=== PATIENT | female | born 1950 | race Caucasian/White ===

== ENCOUNTER 2020-03-23 18:17 | Emergency (ER) | payer MEDICARE, SELFPAY ==
--- NOTE | ~2020-03-23 | XR_ITS ---
XR foot RT min 3V DATE: 03/23/2020 19:04 INDICATION: Right foot pain. No recent injury. Pain at lateral metatarsal region TECHNIQUE: 4 views COMPARISON: None FINDINGS: There is osteoarthritic change at the first tarsometatarsal, first metatarsophalangeal join t and multiple interphalangeal joints. There is minimal plantar calcaneal enthesopathy No fracture or dislocation, periosteal reaction or bone destruction. IMPRESSION: Polyarticular osteoarthritis Reviewed, dictated and finalized at location A.
[2020-03-23 18:20] VITALS: BP 148/68; PULSE 90; RESP 18; TEMP 37.3; O2SAT 99
--- NOTE | 2020-03-23 19:00 | ED.LOWEXIN ---
HPI - Extremity Injury (Lower) General Chief Complaint: Extremity Injury, Lower Stated Complaint: R foot pain Time Seen by Provider: 03/23/20 18:25 Source: patient Mode of arrival: ambulatory Limitations: no limitations History of Present Illness HPI Narrative: This is a 69-year-old female that presents emergency department for right foot pain today. Reports she was doing some work around the house. No known injury or trauma. Reports when she stood up she started to have right foot pain. Worse with weightbearing and relieved with rest. Reports she has had problems with a bone spur in this foot for which she used to see a roof panel hanger. She took a meloxicam with relief. Denies fever, erythema, or numbness. Related Data Allergies Allergy/AdvReac Type Severity Reaction Status Date / Time latex Allergy Mild hives, Verified 02/22/11 14:14 itch, swelling dermabond Allergy Mild swelling, Uncoded 06/16/10 08:59 itching Review of Systems Review of Systems: Narrative: CONSTITUTIONAL: Denies fever SKIN: Denies rash or itching. MUSCULOSKELETAL: Reports joint pain, and myalgia. NEUROLOGIC: Denies numbness All systems reviewed & are unremarkable except as noted in HPI and below PMFSH Past Medical History Medical History (Updated 03/23/20 @ 20:23 by Katie Urbina PA-C) History of breast cancer History of depression Surgical History Surgical History (Updated 03/23/20 @ 19:18 by Katie Urbina PA-C) History of cholecystectomy Exam Narrative: Exam Narrative: GENERAL: Well-appearing, well-nourished, and in no acute distress. HEAD: Normocephalic, atraumatic. EYES: EOMI. EXTREMITIES: Normal range of motion. No edema or erythema. Normal DP pulses. Normal sensation SKIN: Warm, dry, no rash. NEURO: No focal deficits. Alert and oriented x3. PSYCH: Normal mood and affect Course Vital Signs Vital signs: Vital Signs Temperature 99.1 F 03/23/20 18:20 Pulse Rate 90 03/23/20 18:20 Respiratory Rate 18 03/23/20 18:20 Blood Pressure 148/68 H 03/23/20 18:20 Pulse Oximetry 99 03/23/20 18:20 Temperature 99.1 F 03/23/20 18:20 Pulse Rate 90 03/23/20 18:20 Respiratory Rate 18 03/23/20 18:20 Blood Pressure 148/68 H 03/23/20 18:20 Pulse Oximetry 99 03/23/20 18:20 MDM - Extremity Injury (Lower) MDM Narrative Medical decision making narrative: Patient presents to the emergency department for right foot pain today. No known injury or trauma. Right foot x-ray shows osteoarthritis. Patient is afebrile and nontoxic-appearing. No erythema or edema of the foot. Patient is stable and felt appropriate for further outpatient evaluation. Reports she has a referral to a roof panel hanger. She was given warnings to return to the ER Imaging Data Radiologist's impression: ITS Impressions Foot X-Ray 03/23/20 19:20 IMPRESSION: Polyarticular osteoarthritis Critical Care Time Critical Care Time Critical Care Time: No Discharge Plan Discharge Clinical Impression: Acute pain of right foot Patient Disposition: Home, Self-Care Condition: Stable Instructions: Swollen Joint (ED) Additional Instructions: Return to the ER if you experience fever, redness and swelling of your foot, weakness, numbness, or any other symptoms that are concerning to you Rest, use ice/heat, take meloxicam once daily as needed for pain or Tylenol as needed for pain Follow up with podiatry Follow-up/Referrals: Thierry,Pasquale Alvarado MD [Primary Care Provider] -
[2020-03-23 20:39] VITALS: BP 138/82; PULSE 88; RESP 20; O2SAT 98
== END 2020-03-23 20:40 | disposition home or self-care (01) ==
PROVIDERS: Emergency Provider Emergency Medicine; PCP Internal Medicine
DX: M79.671 Pain in right foot (principal); M19.071 Primary osteoarthritis, right ankle and foot; Z85.3 Personal history of malignant neoplasm of breast
CPT/HCPCS: 73630; 99283

== ENCOUNTER 2022-04-13 16:49 | Emergency (ER) | payer MEDICARE, SELFPAY ==
[2022-04-13 16:50] VITALS: BP 132/42; PULSE 67; RESP 20; TEMP 36.5; O2SAT 100
--- NOTE | 2022-04-13 17:17 | ED.DENTAL ---
HPI - Dental/Oral General Chief complaint: Dental/Oral Stated complaint: dental pain Time Seen by Provider: 04/13/22 16:59 History of Present Illness HPI Narrative: 79-year-old female with a history of Sjogren's presented emergency room for evaluation of lower teeth pain. Patient states she recently had 4 teeth partially removed, but the oral surgeon left the roots of the teeth then. Patient has been on Augmentin and Aleve since the procedure. Patient is complaining of increased dental pain. Has a follow-up with her dentist in 2 days. Related Data Allergies Allergy/AdvReac Type Severity Reaction Status Date / Time latex Allergy Mild hives, Verified 04/13/22 16:53 itch, swelling dermabond Allergy Mild swelling, Uncoded 04/13/22 16:53 itching Review of Systems Review of Systems: CONSTITUTIONAL: Denies fever, chills, or sweats. EYES: Denies visual changes, redness, or discharge. ENT: Reports dental pain CARDIOVASCULAR: Denies chest pain, palpitations, or edema. RESPIRATORY: Denies cough or dyspnea. GASTROINTESTINAL: Denies abdominal pain, nausea, vomiting, or diarrhea. GENITOURINARY: Denies dysuria or hematuria. SKIN: Denies rash or itching. MUSCULOSKELETAL: Denies back pain, joint pain, or myalgia. NEUROLOGIC: Denies headache, numbness, dizziness, or weakness. PSYCHIATRIC: Denies anxiety or depression. [facility] Past Medical History Medical History History of breast cancer History of depression Surgical History Surgical History History of cholecystectomy Exam Narrative: GENERAL: Well-appearing, well-nourished, no physical limitations, and in no acute distress. HEAD: Normocephalic, atraumatic. EYES: Conjunctivae normal, PERRLA and EOMI. ENT: teeth: Erythematous gingiva to the lower gumline. Roots of the lower central incisors are visible CHEST: Clear to auscultation. No respiratory distress. No wheezes rales or rhonchi. HEART: Regular rate and rhythm. No murmur heard. Normal peripheral pulses. SKIN: Warm, dry, no rash. No noted wounds NEURO: No focal deficits. Alert and oriented x3. MAEW. CN's II-XI intact bilaterally, normal gait PSYCH: Cooperative. Normal mood and affect. Course Vital Signs Vital signs: Vital Signs Temperature 36.5 C 04/13/22 16:50 Pulse Rate 67 04/13/22 16:50 Respiratory Rate 04/13/22 16:50 Blood Pressure 132/42 L 04/13/22 16:50 Pulse Oximetry 100 04/13/22 16:50 Oxygen Delivery Room Air 04/13/22 16:50 Temperature 36.5 C 04/13/22 16:50 Pulse Rate 67 04/13/22 16:50 Respiratory Rate 04/13/22 16:50 Blood Pressure 132/42 L 04/13/22 16:50 Pulse Oximetry 100 04/13/22 16:50 Oxygen Delivery Room Air 04/13/22 16:50 Discharge Plan Discharge Clinical Impression: Toothache Patient Disposition: Home, Self-Care Condition: Stable Instructions: Antibiotic Form, Toothache (ED) Prescriptions: New hydrocodone-acetaminophen 5-325 mg tablet 1 tablet PO Q8H PRN (Reason: pain) Qty: 15 0RF Follow-up/Referrals: Thierry,Pasquale Alvarado MD [Primary Care Provider] - Stand Alone Forms: Work/School Release IP Time of Disposition: 17:15
== END 2022-04-13 17:33 | disposition home or self-care (01) ==
LOC: ANHED 17:26
PROVIDERS: Emergency Provider Nurse Practitioner Family; PCP Internal Medicine
DX: K08.89 Other specified disorders of teeth and supporting structures (principal); M35.00 Sjogren syndrome, unspecified; Z85.3 Personal history of malignant neoplasm of breast; Z98.818 Other dental procedure status
CPT/HCPCS: 99283

== ENCOUNTER 2023-02-04 15:46 | Outpatient (CLI) | payer MEDICARE, SELFPAY ==
--- NOTE | ~2023-02-04 | MM_ITS ---
EXAMINATION: MM screening albina LT w shadi HISTORY: Screening mammogram TECHNIQUE: Craniocaudal and mediolateral oblique 3-D tomosynthesis images were obtained and synthetic 2-D images were generated. CAD analysis was submitted and interpreted. COMPARISON: 08/14/2010 bilateral screening mammogram BREAST PARENCHYMAL COMPOSITION: There are scattered areas of fibroglandular density. FINDINGS: There is no evidence of suspicious mass, calcification, or architectural distortion to sugg est malignancy in either breast. There has been no suspicious interval change. IMPRESSION: 1. Status post right mastectomy in 2014 by clinical history. No mammographic evidence of malignancy. 2. Recommend routine screening mammography in one year. BI-RADS Category 1: Negative Reviewed, dictated and finalized at location A. IMPRESSION: 1. Status post right mastectomy in 2014 by clinical history. No mammographic ev idence of malignancy. 2. Recommend routine screening mammography in one year. BI-RADS Category 1: Negative
== END 2023-02-04 15:47 | disposition home or self-care (01) ==
PROVIDERS: PCP Internal Medicine
DX: Z12.31 Encounter for screening mammogram for malignant neoplasm of breast (principal)
CPT/HCPCS: 77063; 77067

== ENCOUNTER 2023-05-03 12:07 | Emergency (ER) | payer MEDICARE, SELFPAY ==
--- NOTE | ~2023-05-03 | XR_ITS ---
XR foot RT 2V 05/03/2023 12:29 Indication: Right foot pain Procedure: 2 views right foot Comparison: 03/23/2020 Findings: Osteopenia. There is polyarticular osteoarthritis. Lisfranc joint intact. Small degenerativ e calcaneal enthesophyte at the plantar surface. No acute fractures identified. There is anatomic ali gnment. Impression: 1: Mild-moderate polyarticular osteoarthritis. Reviewed, dictated and finalized at location B. Impression: 1: Mild-moderate polyarticular osteoarthritis.
[2023-05-03 12:14] VITALS: BP 143/56; PULSE 88; RESP 18; TEMP 36.1; O2SAT 99
--- NOTE | 2023-05-03 14:14 | PC.NURSE ---
Pt brought back to rm 18 to be evaluated by FOOD SAFETY SCIENTIST
[2023-05-03 14:16] VITALS: BP 145/64; PULSE 72; RESP 18; TEMP 36.3; O2SAT 100
--- NOTE | 2023-05-03 14:18 | ED.EXTPRO ---
HPI - Extremity Problem General Chief complaint: Extremity Problem,Nontraumatic <Andrea Martinez APRN - Last Filed: 05/03/23 14:32> Stated complaint: right foot bruising <Andrea Martinez APRN - Last Filed: 05/03/23 14:32> Time Seen by Provider: 05/03/23 14:17 <Andrea Martinez APRN - Last Filed: 05/03/23 14:32> Source: patient <Andrea Martinez APRN - Last Filed: 05/03/23 14:32> Mode of arrival: ambulatory <Andrea Martinez APRN - Last Filed: 05/03/23 14:32> Limitations: no limitations <Andrea Martinez APRN - Last Filed: 05/03/23 14:32> History of Present Illness HPI Narrative: Mrs. Pino is a 72 year old female patient presenting to the clinic today with c/o right dorsal lateral foot bruising. No known injury. Has a small scrap abrasion to the foot. History of Breast CA and sjorgens syndrome. Is taking hydroxychloroquine for this. No blood thinner or recent oral steriod use. Has been using topical steriod cream x1 week to arms for poison maliha that was Dx by her PCP. <Andrea Martinez APRN - Last Filed: 05/03/23 14:32> Related Data Allergies/Adverse reactions: Allergies Allergy/AdvReac Type Severity Reaction Status Date / Time latex Allergy Mild hives, Verified 04/13/22 16:53 itch, swelling dermabond Allergy Mild swelling, Uncoded 04/13/22 16:53 itching <Andrea Martinez APRN - Last Filed: 05/03/23 14:32> Review of Systems Review of Systems: All systems reviewed & are unremarkable except as noted in HPI and below <Andrea Martinez APRN - Last Filed: 05/03/23 14:32> PMFSH Past Medical History Medical History: Medical History History of breast cancer History of depression <Andrea Martinez APRN - Last Filed: 05/03/23 14:32> Surgical History Surgical History: Surgical History History of cholecystectomy <Andrea Martinez APRN - Last Filed: 05/03/23 14:32> Comments At the time of my signature, I reviewed and agree with the nursing past medical, surgical, social, and family history. There is no relevant family history pertinent to the patient complaint. <Andrea Martinez APRN - Last Filed: 05/03/23 14:32> Exam Const: General: healthy appearing, no acute distress and alert <Andrea Martinez APRN - Last Filed: 05/03/23 14:32> HENMT: Head: normal to inspection <Andrea Martinez APRN - Last Filed: 05/03/23 14:32> Chest: Chest palpation & inspection: normal inspection of the chest <Andrea Martinez APRN - Last Filed: 05/03/23 14:32> Other: Right breast mastectomy <Andrea Martinez APRN - Last Filed: 05/03/23 14:32> Resp: Effort & Inspection: normal respiratory effort <Andrea Martinez APRN - Last Filed: 05/03/23 14:32> Cardio: Rate: regular rate <Andrea Martinez APRN - Last Filed: 05/03/23 14:32> Rhythm: regular rhythm <Andrea Martinez APRN - Last Filed: 05/03/23 14:32> Extrem: Other: Bruising noted to the right dorsal/lateral foot, no swelling. Small area of scraped skin to the foot in middle of brusing, non-tender to palpation <Andrea Martinez APRN - Last Filed: 05/03/23 14:32> Course Course Emergency Course: Portions of this record may have been created with voice recognition software. <Andrea Martinez APRN - Last Filed: 05/03/23 14:32> Reevaluation(s) Reevaluation #1: 72-year-old female presented ED for evaluation of bruising to her right lateral foot. Patient denies any pain or injury. Patient was afebrile with no leukocytosis and a stable hemoglobin, normal platelet count, x-rays showed no acute fracture or dislocation. Patient had no tenderness to palpation. PT PTT are within normal limits. Suspect ruptured varicose vein. Patient was updated the results of her work-up. Encouraged of close follow-up with her
[2023-05-03 14:35] LABS: Basophils Absolute Auto 0.1 K/mm3 (0.0-0.1); Basophils Percent Auto 0.9 % (0.2-1.2); Eosinophils Absolute Auto 0.1 K/mm3 (0-0.3); Eosinophils Percent Auto 1.4 % (0-4.4); Hematocrit 39.8 % (37.0-47.0); Hemoglobin 12.7 g/dL (12.0-15.0); Immature Granulocyte Absolute 0.01 K/mm3 (0.00-0.031); Immature Granulocyte Percent A 0.2 % (0-0.5); Lymphocytes Absolute Auto 1.47 K/mm3 (0.9-3.2); Lymphocytes Percent Auto 23.1 % (18.3-44.2); Mean Corpuscular HGB Conc 31.9 g/dl (32-36); Mean Corpuscular Volume 93.9 fl (80-100); Mean Platelet Volume 9.5 fl (7.4-10.4); Monocytes Absolute Auto 0.5 K/mm3 (0.1-0.6); Monocytes Percent Auto 7.4 % (2.6-8.5); Neutrophils Absolute Auto 4.3 K/mm3 (1.3-6.7); Platelet Count Result 284 k/mm3 (150-375); Red Blood Count 4.24 M/mm3 (4.2-5.4); White Blood Count 6.4 K/mm3 (4.5-10.0)
[2023-05-03 14:49] LABS: Alanine Aminotransferase 11 U/L (6-35); Albumin Level 4.4 g/dL (3.5-5.1); Alkaline Phosphatase 79 U/L (38-126); Anion Gap 6 mmol/L (8-16); Aspartate Amino Transferase 36 U/L (14-36); Bilirubin,Total 0.5 mg/dL (0.2-1.3); Blood Urea Nitrogen 11 mg/dL (7-17); Calcium 9.4 mg/dL (8.4-10.2); Carbon Dioxide 27 mmol/L (22-30); Chloride 107 mmol/L (98-107); Estimated CRCL calculation 44 ml/min; Estimated Glomerular Filt Rate 55; Glucose 94 mg/dL (65-110); Potassium 4.2 mmol/L (3.4-5.0); Sodium 140 mmol/L (137-145)
[2023-05-03 16:31] LABS: Partial Thromboplastin Time 29.3 SECONDS (22.3-36.8); Prothrombin Time 13.8 Seconds (11.1-14.7)
== END 2023-05-03 16:48 | disposition home or self-care (01) ==
PROVIDERS: Nurse Practitioner Family; Emergency Provider Emergency Medicine; PCP Internal Medicine
DX: R58 Hemorrhage, not elsewhere classified (principal); Z85.3 Personal history of malignant neoplasm of breast
CPT/HCPCS: 36415; 73620; 80053; 85025; 85610; 85730; 99283

== ENCOUNTER 2023-09-03 13:50 | Outpatient (CLI) | payer MEDICARE, SELFPAY ==
--- NOTE | ~2023-09-03 | DEXA_ITS ---
Bone Density Report Name: CRISTIAN SALAZAR Age: 72 Sex: Female Ethnicity: White Date of : 1950 Indication: postmenopausal; screening for osteoporosis; height loss; prior fracture; cancer; seizure disorder; rheumatoid arthritis; Referring Provider: NBA*, ESTEPHANIA Alvarado Study: Bone densitometry was performed. Exam Date: September 03, 2023 Accession number: [id number] Bone Density: Region BMD T-score Z-score Classification AP Spine(L1-L4) 1.911 7.9 10.1 Normal Femoral Neck (Left) 0.693 -1.4 0.5 Osteopenia Total Hip (Left) 0.789 -1.3 0.4 Osteopenia Femoral Neck (Right) 0.672 -1.6 0.4 Osteopenia Total Hip (Right) 0.812 -1.1 0.6 Osteopenia Total Hip Mean 0.801 -1.2 0.5 Osteopenia World Health Organization criteria for BMD impression classify patients as: Normal (T-score at or above -1.0), Osteopenia (T-score between -1.0 and -2.5), or Osteoporosis (T-score at or below -2.5). 10-year Fracture Risk: FRAX not reported because: Prior hip or vertebral fracture Clinical Information Provided by Patient: Have had a previous hip or vertebral fracture Has had a low trauma fracture Has rheumatoid arthritis Has used the following medications: Vitamin D, Calcium Has the following medical conditions: Any Seizure Disorders, Cancer Patient maximum height was 66 Menopause Age: 32 No regular weight bearing exercise Does not regularly consume dairy products Drinks caffeinated beverages Onset of menses at age 14 Number of children 1 Impression: The patient has low bone mass, based on the Right Femoral Neck T-score. The patient has risk factors, including: previous fracture. Discussion: INCREASED RISK OF FRACTURE DUE TO HISTORY OF FRACTURE. The patient's previous fracture puts the patient at high risk of a future fracture. In untreated patients, the risk of osteoporotic fracture increases approximately two-fold for each 1.0 SD decrease in T-score. Low bone density is not the only risk factor for fracture; also consider factors such as patient's age, frailty or poor health, risk of falling, risk of injury, previous osteoporotic fracture, family history of osteoporosis, cigarette smoking, low body weight, etc. Not everyone with a low trauma fracture has osteoporosis; osteomalacia and other metabolic bone disorders should also be considered. Patients who have osteoporosis should be evaluated for specific diseases and conditions (secondary causes) that may cause or contribute to bone loss and fracture risk. National Osteoporosis Foundation (NOF) recommends pharmacologic intervention for patients with a prior hip or vertebral fracture regardless of BMD T-score. The patient should follow a healthful lifestyle (good nutrition with adequate calcium and vitamin D, and appropriate weight-bearing exercise). Follow-Up: Consider a repeat BMD and Vertebral Fracture Assessment (VFA) exam in 2 years or sooner if
== END 2023-09-03 13:51 | disposition home or self-care (01) ==
LOC: ANHIMG 13:54
PROVIDERS: PCP Internal Medicine; Visit Provider Internal Medicine
DX: M81.0 Age-related osteoporosis without current pathological fracture (principal); M85.852 Other specified disorders of bone density and structure, left thigh; M85.851 Other specified disorders of bone density and structure, right thigh
CPT/HCPCS: 77080

== ENCOUNTER 2024-02-17 08:17 | Outpatient (CLI) | payer MEDICARE, SELFPAY ==
--- NOTE | ~2024-02-17 | MM_ITS ---
EXAMINATION: MM screening albina LT w shadi HISTORY: Screening TECHNIQUE: Craniocaudal and mediolateral oblique 3-D tomosynthesis images were obtained and synthetic 2-D images were generated. CAD analysis was submitted and interpreted. COMPARISON: Comparison to multiple prior studies sequentially, with oldest reviewed study dated 01/2011. BREAST PARENCHYMAL COMPOSITION: Not dense: There are scattered areas of fibroglandular density. FINDINGS: There is no evidence of suspicious mass, calcification, or architectural distortion to sugg est malignancy in either breast. There has been no suspicious interval change. IMPRESSION: 1. No mammographic evidence of malignancy. 2. Recommend routine screening mammography in one year. BI-RADS Category 1: Negative Reviewed, dictated and finalized at location B.
== END 2024-02-17 08:18 | disposition home or self-care (01) ==
LOC: ANHIMG 08:19
PROVIDERS: PCP Internal Medicine
DX: Z12.31 Encounter for screening mammogram for malignant neoplasm of breast (principal)
CPT/HCPCS: 77063; 77067

== ENCOUNTER 2024-03-28 08:08 | Emergency (ER) | payer MEDICARE, SELFPAY ==
--- NOTE | 2024-03-28 08:17 | ED.SKABFB ---
HPI - Skin/Abscess/Foreign Bdy General Chief complaint: Skin/Abscess/Foreign Body Stated complaint: Rash Time Seen by Provider: 03/28/24 08:49 Source: patient and RN notes reviewed Mode of arrival: ambulatory Limitations: no limitations History of Present Illness HPI narrative: 73-year-old female presents concern for itchy rash on her neck, arms and legs. Reports she began getting the rash yesterday soon after she received an IV with contrast dye for a CT scan. She reports she has had several new areas of rash popped up as latest this morning. She denies any swollen lips, swollen tongue, trouble breathing. Reports she had a dry mouth while she was receiving the dye MD complaint: rash Related Data Home Medications Medication Instructions Recorded Confirmed aspirin 81 mg chewable tablet 81 mg PO DAILY 03/28/24 03/28/24 biotin 5,000 mcg chewable tablet 5,000 mcg PO DAILY 03/28/24 03/28/24 calcium citrate 250 mg PO DAILY 03/28/24 03/28/24 cetirizine 10 mg capsule (Zyrtec) 10 mg PO DAILY 03/28/24 03/28/24 escitalopram oxalate 20 mg tablet 20 mg PO DAILY 03/28/24 03/28/24 hydroxychloroquine 200 mg tablet 200 mg PO DAILY 03/28/24 03/28/24 montelukast 10 mg tablet 10 mg PO DAILY 03/28/24 03/28/24 omega 0-jbe-rer-fish oil 60 mg-90 1 cap PO BID 03/28/24 03/28/24 mg-500 mg capsule (Fish Oil) psyllium 1 packet PO DAILY 03/28/24 03/28/24 saw palmetto 500 mg capsule 1,200 mg PO DAILY 03/28/24 03/28/24 Allergies Allergy/AdvReac Type Severity Reaction Status Date / Time Iodinated Contrast Media Allergy Mild Rash Verified 03/28/24 08:59 latex Allergy Mild hives, Verified 03/28/24 08:43 itch, swelling dermabond Allergy Mild swelling, Uncoded 03/28/24 08:43 itching Review of Systems Review of Systems: CONSTITUTIONAL: Denies malaise, chills, sweats, or fever. EYES: Denies redness, or discharge. ENT: Denies rhinorrhea, congestion, swollen lips, swollen tongue CARDIOVASCULAR: Denies chest pain, palpitations, or edema. RESPIRATORY: Denies cough or dyspnea. GASTROINTESTINAL: Denies abdominal pain, nausea, vomiting SKIN: Reports itchy rash MUSCULOSKELETAL: Denies joint pain or myalgia. NEUROLOGIC: Denies headache. All systems reviewed & are unremarkable except as noted in HPI and below PMFSH Past Medical History Medical History History of breast cancer History of depression Surgical History Surgical History History of cholecystectomy Comments At time of signature, agree with nursing past medical, surgical, social and family history. There is no relevant family history pertinent to the presenting complaint Exam Narrative: GENERAL: Well-appearing, well-nourished, and in no acute distress. HEAD: Normocephalic, atraumatic. EYES: PERRLA, conjunctivae clear, and EOMI. ENT: Mucous membranes moist. Oropharynx without edema, erythema or lesions. NECK: Supple. No lymphadenopathy CHEST: Clear to auscultation. No respiratory distress. HEART: Regular rate and rhythm. SKIN: Warm, dry. Raised erythematous patches noted to the neck, scattered on bilateral arms and bilateral legs NEURO: Alert and oriented x3. PSYCH: Normal mood and affect Course Course Emergency Course: Patient is aware of diagnosis, understands and agrees to treatment plan. Anticipatory guidance given. Patient agrees to follow-up as directed and is aware of reasons to seek care at the emergency department. Portions of this record may have been created with voice recognition software Level of Care: Express Care Visit Vital Signs Vital signs: Reviewed. MDM - Skin/Abscess/Foreign Bdy MDM Narrative Medical decision making narrative: Does not appear at this time to be erythema multiforme, bullous, SJS, TEN; no evidence at this time to suggest RMSF, endocarditis or Lyme disease; patient looks well, nontoxic and is tolerating oral in
[2024-03-28 08:31] VITALS: BP 148/61; PULSE 80; RESP 16; TEMP 36.1; O2SAT 100
== END 2024-03-28 09:00 | disposition home or self-care (01) ==
PROVIDERS: Emergency Provider Nurse Practitioner; PCP Internal Medicine
DX: R21 Rash and other nonspecific skin eruption (principal); T50.8X5A Adverse effect of diagnostic agents, initial encounter; F32.A Depression, unspecified; Z85.3 Personal history of malignant neoplasm of breast; Z79.82 Long term (current) use of aspirin
CPT/HCPCS: 99213; G0463

== ENCOUNTER 2024-06-30 11:11 | Outpatient (CLI) | payer MEDICARE, SELFPAY ==
--- NOTE | ~2024-06-30 | US_ITS ---
EXAMINATION: US thyroid DATE: 06/30/2024 13:00 INDICATION: Nontoxic single thyroid nodule. TECHNIQUE: Multiple ultrasound images of the thyroid were obtained. COMPARISON: None. FINDINGS: The right thyroid lobe measures 3.9 x 1.2 x 1.6 cm. The left thyroid lobe measures 5.0 x 1.2 x 1.6 c m. In the left thyroid lobe, there is a 7 mm solid, hypoechoic, wider than tall nodule with smooth m argin without echogenic foci (TI-RADS TR4). IMPRESSION: 1. Left thyroid nodule, likely not clinically significant. No follow-up is needed. Reviewed, dictated and finalized at location A. 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 Left thyroid nodule, likely not clinically significant. No follow-up is need ed.
== END 2024-06-30 11:12 | disposition home or self-care (01) ==
PROVIDERS: PCP Internal Medicine; Visit Provider Internal Medicine
DX: E04.1 Nontoxic single thyroid nodule (principal)
CPT/HCPCS: 76536

== ENCOUNTER 2024-12-16 06:27 | Emergency (ER) | payer MEDICARE, SELFPAY ==
--- NOTE | ~2024-12-16 | XR_ITS ---
EXAMINATION: XR knee LT min 4V DATE: 12/16/2024 08:29 INDICATION: Left knee pain TECHNIQUE: Anteroposterior, sunrise, oblique and crosstable lateral views of the left knee were obtai jero COMPARISON: None. FINDINGS: Alignment is normal. No fracture. Chondrocalcinosis at the medial lateral compartment of the knee. T here is at least mild joint space narrowing in the medial compartment of the joint space narrowing ca n be underestimated on nonweightbearing imaging. Small marginal osteophytes in all 3 compartments. Sm all left knee joint effusion without layering lipohemarthrosis. Soft tissues are unremarkable. IMPRESSION: 1. 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 No acute osseous abno rmality. 2. Small left knee joint effusion. Reviewed, dictated and finalized at location A. IMPRESSION: 1. 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 No acute osseous abnormality. 2. Small left knee joint effusion.
[2024-12-16 06:25] VITALS: BP 163/72; PULSE 98; RESP 16; TEMP 36.8; O2SAT 98
--- NOTE | 2024-12-16 07:31 | ED_ITS ---
HPI - General Adult General Chief complaint: Extremity Injury, Lower Stated complaint: fall, knee pain Time Seen by Provider: 12/16/24 07:20 Source: patient and EMS Mode of arrival: EMS History of Present Illness HPI narrative: 73 YEARS OLD WHITE FEMALE CAME FROM HOME BY AMBULANCE BECAUSE OF A FALL. PATIENT MISSED 1 STEP, LANDED ON THE LEFT KNEE, DENIES OTHER INJURIES. Related Data Home Medications ?Medication ?Instructions ?Recorded ?Confirmed ?Last Taken ?Type aspirin 81 mg chewable tablet 81 mg PO DAILY 03/28/24 03/28/24 Unknown History biotin 5,000 mcg chewable tablet 5,000 mcg PO DAILY 03/28/24 03/28/24 Unknown History calcium citrate 250 mg PO DAILY 03/28/24 03/28/24 Unknown History cetirizine 10 mg capsule (Zyrtec) 10 mg PO DAILY 03/28/24 03/28/24 Unknown History escitalopram oxalate 20 mg tablet 20 mg PO DAILY 03/28/24 03/28/24 Unknown History hydroxychloroquine 200 mg tablet 200 mg PO DAILY 03/28/24 03/28/24 Unknown History montelukast 10 mg tablet 10 mg PO DAILY 03/28/24 03/28/24 Unknown History omega 1-zva-phd-fish oil 60 mg-90 1 cap PO BID 03/28/24 03/28/24 Unknown History mg-500 mg capsule (Fish Oil) psyllium 1 packet PO DAILY 03/28/24 03/28/24 Unknown History saw palmetto 500 mg capsule 1,200 mg PO DAILY 03/28/24 03/28/24 Unknown History Allergies Allergy/AdvReac Type Severity Reaction Status Date / Time Iodinated Contrast Media Allergy Mild Rash Verified 12/16/24 06:30 latex Allergy Mild hives, Verified 12/16/24 06:30 itch, swelling dermabond Allergy Mild swelling, Uncoded 12/16/24 06:30 itching Review of Systems Review of Systems: All systems reviewed & are unremarkable except as noted in HPI and below PMFSH Past Medical History Medical History History of depression History of breast cancer Surgical History Surgical History History of cholecystectomy Exam Narrative: GENERAL APPEARANCE: WELL-DEVELOPED, WELL-NOURISHED SKIN: NORMAL COLOR HEAD: NORMOCEPHALIC, NONTRAUMATIC EYES: CLEAR CONJUNCTIVA ENT: OROPHARYNX NORMAL, EARS NORMAL, NOSE NORMAL NECK: SUPPLE, NONTENDER CHEST AND RESPIRATORY: AIRWAY PATENT, NO RESPIRATORY DISTRESS, NO ACCESSORY MUSCLE USE HEART: REGULAR RATE/RHYTHM ABDOMEN: SOFT, NONTENDER, NO ORGANOMEGALY, QUIET BOWEL SOUNDS VASCULAR: NORMAL PERIPHERAL PULSES, NORMAL CAPILLARY REFILL. 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 IS NORMAL TESTED, NO GROSS MOTOR DEFICIT Course Vital Signs Vital signs: Vital Signs Temperature 36.8 C 12/16/24 06:25 Pulse Rate 98 12/16/24 06:25 Respiratory Rate 16 12/16/24 06:25 Blood Pressure 163/72 H 12/16/24 06:25 Pulse Oximetry 98 12/16/24 06:25 Oxygen Delivery Room Air 12/16/24 06:25 Temperature 36.8 C 12/16/24 06:25 Pulse Rate 98 12/16/24 06:25 Respiratory Rate 16 12/16/24 06:25 Blood Pressure 163/72 H 12/16/24 06:25 Pulse Oximetry 98 12/16/24 06:25 Oxygen Delivery Room Air 12/16/24 06:25 Medical Decision Making MDM Narrative Medical decision making narrative: DIFFERENTIAL DIAGNOSIS KNEE CONTUSION VERSUS FRACTURE VERSUS JOINT EFFUSION. X-RAY OF THE KNEE SHOWED NO ACUTE OSSEOUS ABNORMALITY, NO KNEE EFFUSION. Vital Signs Vital Signs: Vital Signs Temperature 36.8 C 12/16/24 06:25 Pulse Rate 98 12/16/24 06:25 Respiratory Rate 16 12/16/24 06:25 Blood Pressure 163/72 H 12/16/24 06:25 Pulse Oximetry 98 12/16/24 06:25 Oxygen Delivery Room Air 12/16/24 06:25 Temperature 36.8 C 12/16/24 06:25 Pulse Rate 98 12/16/24 06:25 Respiratory Rate 16 12/16/24 06:25 Blood Pressure 163/72 H 12/16/24 06:25 Pulse Oximetry 98 12/16/24 06:25 Oxygen Delivery Room Air 12/16/24 06:25 Imaging Data Radiologist's impression: Impressions Knee X-Ray 12/16/24 08:44 IMPRESSION: 1. 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 No acute osseous abnormality. 2. Small left knee joint effusion. Critical Care Time Critical Care Time Critical Care Time: No Discharge Plan Discharge Clinical Impression: Contusion of knee Patient Disposition: Home Condition: Stable Instructions: Knee Pain (ED) Additional Instructions: RETURN IF SYMPTOMS ARE WORSENING , CALL YOUR FAMILY PHYSICIAN FOR APPOINTMENT, TAKE TYLENOL NEEDED FOR ACHES AND PAIN, CONTINUE HOME MEDICATIONS. Patient Language: Polish Prescriptions: New diclofenac sodium 75 mg tablet,delayed release (DR/EC) 75 mg PO BID PRN (Reason: pain) Qty: 10 0RF No Action aspirin [Baby Aspirin] 81 mg Tablet,Chewable 81 mg PO DAILY hydroxychloroquine 200 mg Tablet 200 mg PO DAILY escitalopram oxalate 20 mg tablet 20 mg PO DAILY Zyrtec 10 mg Capsule 10 mg PO DAILY biotin 5,000 mcg Tablet,Chewable 5,000 mcg PO DAILY Metamucil Packet 1 packet PO DAILY Rx Instructions: mix into at least 8 oz of water or juice before administering montelukast 10 mg Tablet 10 mg PO DAILY saw palmetto 500 mg Capsule 1,200 mg PO DAILY calcium citrate 250 mg calcium Tablet 250 mg PO DAILY omega 0-hzy-avu-fish oil [Fish Oil] 60-90-500 mg Capsule 1 cap PO BID methylprednisolone [Medrol (Tommy)] 4 mg tablets,dose pack See Rx Instructions .ROUTE .COMPLEX Qty: 21 0RF Rx Instructions: orally per package directions Follow-up/Referrals: Thierry,Pasquale Alvarado MD [Primary Care Provider] -
--- OUTSIDE RECORDS SUMMARY | 2024-12-16 07:45 | XMS_ITS | Encounter Summary ---
Author Organization [facility] Address [address] [place] [address] Care Team Providers Care Inbound Ingredient Logistics Specialist Name Role Phone Pasquale Guadarrama MD Primary Care Provider [phone] Pasquale Guadarrama MD Unavailable [phone] Pasquale Guadarrama MD Unavailable [phone] Willard Tsang MD Unavailable Reason for Visit * Reason Onset Date Comments Record Request 12/15/2024 Encounter Details Date Type Department Care Team (Late st Contact Info) Description 12/15/2024 Telephone [facility] - Rheumatology 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 I advised that I was not aware of such an address, but that I would reach out to the office management and she could mail the forms to our office for faxing to [facility] for records if needed. Patient verbalized understanding and had no further questions or concerns at this time. documented in this encounter Plan of Treatment Upcoming Encounters Date Type Department Care Team (Late st Contact Info) Description 12/25/2024 9:20 AM CDT Office Visit [facility] - Rheumatology [address] [facility], [address] [place] [address] Libia Gardner MD [address] [place] [phone] documented as of this encounter Visit Diagnoses Not on filedocumented in this encounter Care Teams Inbound Ingredient Logistics Specialist Relationship Specialty Start Date End Date Pasquale Guadarrama MD [address] [place] [phone] PCP - General Internal Medicine 08/06/21 Pasquale Guadarrama MD [address] [place] [phone] 08/06/21 Pasquale Guadarrama MD [address] [place] [phone] Internal Medicine 09/03/10 Willard Tsang MD [facility] [phone] Neurology 02/22/24 documented as of this encounter
--- OUTSIDE RECORDS SUMMARY | 2024-12-16 07:45 | XMS_ITS | Data Portability ---
Author Organization [place] [employer], Main Office Address [address] [place] [address] Assessment No assessment recorded. Plan of Treatment Reminders Order Date Submit Date Provider Last Modified By Organization Details Last Modified Time Details Appointments None recorded. Lab T4, free, serum 025 [facility] - Outpatient Lab, [address] [place], [address], 5 05:37:14 TSH, serum or plasma 025 [facility] Outpatient Lab, [address] [place], [address], 5 05:37:15 vitamin D, 25-hydrox y, total, serum 025 [facility] Outpatient Lab, [address] [place], [address], 5 05:37:16 lipid panel, serum 025 [facility] Outpatient Lab, [address] [place], [address], 5 05:37:10 CMP, serum or plasma 025 [facility] Outpatient Lab, [address] [place], [address], 5 05:37:12 CBC w/ auto diff 025 [facility] Outpatient Lab, [address] [place], [address], 5 05:37:13 lipid panel, serum 024 [facility] Outpatient Lab, [address] [place], [address], 4 13:40:55 CMP, serum or plasma 024 [facility] Outpatient Lab, [address] [place], [address], 4 13:41:02 CBC w/ auto diff 024 [facility] Outpatient Lab, [address] [place], [address], 4 13:30:15 lipid panel, serum 024 [facility] Outpatient Lab, [address] [place], [address], 4 06:26:19 CMP, serum or plasma 024 [facility] Outpatient Lab, [address] [place], [address], 4 06:26:21 TSH, serum or plasma 024 [facility] Outpatient Lab, [address] [place], [address], 4 06:26:24 T4, free, serum 024 [facility] Outpatient Lab, [address] [place], [address], 4 06:26:23 CBC w/ auto diff 024 [facility] Outpatient Lab, [address] [place], [address], 4 06:26:22 Referral None recorded. Procedures None recorded. Surgeries None recorded. Imaging None recorded. Medication Orders None recorded. Patient TargetsNo targets recorded. Patient Instructions Encounter Date Encounter Id Patient Instructions Last Modified By Organization Details Last Modified Time 08/27/2023 [id number] dementia rating scale-2* [email or web address] Not available 08/27/2023 11:51:02 alcohol misuse* [email or web address] Not available 08/27/2023 11:51:03 depression screening* [email or web address] Not available 08/27/2023 11:51:03 Timed Up and Go test (TUG)* [email or web address] Not available 08/27/2023 11:51:03 multi-dimensiona l health assessment questionnaire* [email or web address] Not available 08/27/2023 11:51:03 Personalized Hea lt Plan and Screening Recommendations Advance Directives - Do you have one? Yes Advance Directives - Do we have your advance directive on file in your health record? No, please bring in a copy at your earliest convenience Primary Prevention/Interven tion (prevents or decreases the chance of common diseases from occurring) Smoking Risk: Non Smoker Alcohol Misuse Screening: Negative Weight: Appropriate Physical activity: Need more exercise/physical activity Nutrition: Good Average Fall Risk (screened today): Low Intermediate Refer to attached handout Preventing Falls: After your Visit Recommend regular use of cane or walker Vaccines Pneumococcal: Ordered Recommended today Recommended today, but you have declined Influenza: Ordered Recommended today Recommended today, but you have declined Chronic Disease Risks Stroke: Low Risk Intermediate Risk I have no recommendations Act breana diagnosis, Continue current treatment plan Heart Attack: Low risk Intermediate Risk I have no recommendations Act breana diagnosis, Continue current treatment plan Clogging of the Arteries: Low risk Intermediate Risk I have no recommendations Act breana diagnosis, Continue current treatment plan Diabetes: Low Risk I have no recommendations Secondary Prevention/Interven tion (detects treatable diseases before they may cause symptoms, disability, or ) Breast Cancer Screening with mammogram: Cervical/Uterine/Ov chris Cancer Screening: No screening necessary Osteoporosis Screening: Your next DEXA in: Ordered Recomme nded today Date Screening Last Performed: Colon Cancer Screening: Colonoscopy Fecal Occult Blood Cologuard (DNA stool test) Date Screening Last Performed: __ Eye Disease Screening: Dementia Risk: Low I have no recommendations Depression Screening: Negative Active diagnosis, Continue current treatment plan [email or web address] Not available 08/27/2023 11:30:34 Medicare wellnes s evaluation risk assessment stable. Follow-up for hyperlipidemia -Sjogren syndrome -depressive disorder -carcinoma the female breast. All clinically stable. Will check a CBC, CMP, thyroid and lipid panel. Continue on current Rx follow-up in six months. Standard immunizations of RSV, COVID, influenza and shingles as recommended. Portions of the record may have been created with voice recognition software. Occasional wrong-word or s ound-a-like substitutions may have occurred due to the inherent limitations of voice recognition software. Read the chart carefully and recognize, using context, where substitutions have occurred. Bone density scan [email or web address] Not available 08/27/2023 11:50:35 12/23/2023 [id number] Hyperlipidemia, anxiety, carcinoma of the breast call clinically stable. Has had recent blood work does not need anything further done at this juncture. Will continue on current Rx follow-up in four months Next Appointment: 4 Months Approximate Date: 04/21/2024 Portions of the record may have been created with voice recognition software. Occasional wrong-word or s ound-a-like substitutions may have occurred due to the inherent limitations of voice recognition software. Read the chart carefully and recognize, using context, where substitutions have occurred. [email or web address] Not available 12/23/2023 14:42:56 03/30/2024 [id number] Drug reaction to intravenous dye. Finish out the Medrol Dosepak. Noted in his chart that she is allergic to the dye for future reference. Already has a follow-up appointment on April as instructed to keep that. Keep Appointment: [facility] 04 27 2024 10:00 AM Eber Portions of the record may have been created with voice recognition software. Occasional wrong-word or s ound-a-like substitutions may have occurred due to the inherent limitations of voice recognition software. Read the chart carefully and recognize, using context, where substitutions have occurred. [email or web address] Not available 03/30/2024 15:41:36 04/27/2024 [id number] Carcinoma of the right breast, hyperlipidemia, osteoporosis. Plan is to continue on current Rx will obtain records from [facility] for further evaluation of the back pain and the PET and nuclear bone scan. Will continue on current Rx check blood work consisting of a lipid, CBC and CMP. Follow-up in four months Next Appointment: 4 Months Approximate Date: 08/25/2024 Portions of the record may have been created with voice recognition software. Occasional wrong-word or s ound-a-like substitutions may have occurred due to the inherent limitations of voice recognition software. Read the chart carefully and recognize, using context, where substitutions have occurred. [email or web address] Not available 04/27/2024 11:20:33 09/07/2024 [id number] Follow-up hyperlipidemia, osteoporosis, thyroid nodule, depressive disorder and Sjogren syndrome all clinically stable. Will continue on current medications follow-up in four months. Will check blood work including a CBC, CMP, lipid , Vit D, and thyroid. Follow Up: 4 Months Approximate Date: 01/05/2025 Portions of record are template driven. When necessary additional context will be provided. Additionally some portions have been created with voice recognition software. Occasional wrong-word or s ound-a-like substitutions may have occurred due to the inherent limitations of voice recognition software. Read the chart carefully and recognize, using context, where substitutions may have occurred. Created: Pasquale Guadarrama M.D. 09.07.2024 10:29 AM [email or web address] Not available 09/07/2024 11:29:44 Reason for Referral None Reported. Results Created Date Observation Date Name Description Value Unit Range Abnormal Flag Note LastModifiedBy Organization Detail LastModifiedTime 09/06/1909/07/2023 LIPID PANEL , [place] cholesterol, total 182 mg/dL <200 normal Not Available [facility] [address] [place], [address], 09/07/2023 06:26:19 09/06/1909/07/2023 LIPID PANEL , [place] HDL cholesterol 44 mg/dL > or = 50 low Not Available [facility] [address] [place], [address], 09/07/2023 06:26:19 09/06/1909/07/2023 LIPID PANEL , [place] triglyceride s 156 mg/dL <150 high Not Available [facility] [address] [place], [address], 09/07/2023 06:26:19 09/06/19 24 09/07/2023 LIPID PANEL , [place] LDL-choleste rol 111 mg/dL _(neives c) high Refer ence range : <100 Natalee able range <100 mg/dL for prima ry preve ntion ; <70 mg/dL for patie nts with CHD or diabe tic patie nts with > or = 2 CHD risk facto rs. LDL-C is now calcu lated using the Christy n-Hop kins calcu stephanie n, which is a valid ated novel metho d provi ding palmer r accur acy than the Fried oniel equat ion in the estim ation of LDL-C . Christy mendoza SS et al. EDMOND. 2013; 310(1 9): 2061- 2068 (http ://ed ucati on.[employer]. Devario/f aq/FA Q164) Not Available [address] [address] [place], [address], 09/07/2023 06:26:19 09/06/19 24 09/07/2023 LIPID PANEL , [place] chol/HDLC ratio 4.1 (calc ) <5.0 normal Not Available [address], [address], 09/07/2023 06:26:19 09/06/19 24 09/07/2023 LIPID PANEL , [place] non HDL cholesterol 138 mg/dL _(nieves c) <130 high For patie nts with diabe lui plus 1 major ASCVD risk facto r, treat ing to a non-H DL-C goal of <100 mg/dL (LDL- C of <70 mg/dL ) is consi trued a thera peutchelly c optio n. Not Available [address] [address] [place], [address], 09/07/2023 06:26:19 09/06/19 24 09/07/2023 COMPR EHENS BREANA METAB OLIC PANEL glucose 88 mg/dL 65-99 normal Fasti ng refer ence inter luis f Not Available [address], [address], 09/07/2023 06:26:21 09/06/19 24 09/07/2023 COMPR EHENS BREANA METAB OLIC PANEL urea nitrogen (BUN) 12 mg/dL 7-25 normal Not Available [address], [address], 09/07/2023 06:26:21 09/06/19 24 09/07/2023 COMPR EHENS BREANA METAB OLIC PANEL creatinine 0.99 mg/dL 0.60-1 .00 normal Not Available [facility] [address], [address], 09/07/2023 06:26:21 09/06/19 24 09/07/2023 COMPR EHENS BREANA METAB OLIC PANEL eGFR 61 mL/mi n/1.7 3m2 > or = 60 normal Not Available [address] [address] [place], [address], 09/07/2023 06:26:21 09/06/19 24 09/07/2023 COMPR EHENS BREANA METAB OLIC PANEL BUN/creatini ne ratio SEE NOTE: (calc ) 6-22 Not Repor bernice: BUN and Creat inine are withi n refer ence range . Not Available [address], [address], 09/07/2023 06:26:21 09/06/19 24 09/07/2023 COMPR EHENS BREANA METAB OLIC PANEL sodium 143 mmol/ L 135-14 6 normal Not Available [employer] [address], [address], 09/07/2023 06:26:21 09/06/19 24 09/07/2023 COMPR EHENS BREANA METAB OLIC PANEL potassium 4.1 mmol/ L 3.5-5. 3 normal Not Available [facility] [address], [address], 09/07/2023 06:26:21 09/06/19 24 09/07/2023 COMPR EHENS BREANA METAB OLIC PANEL chloride 105 mmol/ L 98-110 normal Not Available [address], [address], 09/07/2023 06:26:21 09/06/19 24 09/07/2023 COMPR EHENS BREANA METAB OLIC PANEL carbon dioxide 30 mmol/ L 20-32 normal Not Available [address], [address], 09/07/2023 06:26:21 09/06/19 24 09/07/2023 COMPR EHENS BREANA METAB OLIC PANEL calcium 10.3 mg/dL 8.6-10 .4 normal Not Available [address], [address], 09/07/2023 06:26:21 09/06/19 24 09/07/2023 COMPR EHENS BREANA METAB OLIC PANEL protein, total 6.9 g/dL 6.1-8. 1 normal Not Available [address], [address], 09/07/2023 06:26:21 09/06/19 24 09/07/2023 COMPR EHENS BREANA METAB OLIC PANEL albumin 4.3 g/dL 3.6-5. 1 normal Not Available [address], [address], 09/07/2023 06:26:21 09/06/19 24 09/07/2023 COMPR EHENS BREANA METAB OLIC PANEL globulin 2.6 g/dL_ (calc ) 1.9-3. 7 normal Not Available [address], [address], 09/07/2023 06:26:21 09/06/19 24 09/07/2023 COMPR EHENS BREANA METAB OLIC PANEL albumin/glob ulin ratio 1.7 (calc ) 1.0-2. 5 normal Not Available [address], [address], 09/07/2023 06:26:21 09/06/19 24 09/07/2023 COMPR EHENS BREANA METAB OLIC PANEL bilirubin, total 0.3 mg/dL 0.2-1. 2 normal Not Available [address], [address], 09/07/2023 06:26:21 09/06/19 24 09/07/2023 COMPR EHENS BREANA METAB OLIC PANEL alkaline phosphatase 82 U/L 37-153 normal Not Available [address], [address], 09/07/2023 06:26:21 09/06/19 24 09/07/2023 COMPR EHENS BREANA METAB OLIC PANEL AST 24 U/L 10-35 normal Not Available [address], [address], 09/07/2023 06:26:21 09/06/19 24 09/07/2023 COMPR EHENS BREANA METAB OLIC PANEL ALT 7 U/L 6-29 normal Not Available [address], [address], 09/07/2023 06:26:21 09/06/19 24 09/07/2023 CBC (INCL UDES DIFF/ PLT) white blood cell count 4.5 thous and/u L 3.8-10 .8 normal Not Available [address], [address], 09/07/2023 06:26:22 09/06/19 24 09/07/2023 CBC (INCL UDES DIFF/ PLT) red blood cell count 4.41 pedro on/uL 3.80-5 .10 normal Not Available [address] [place], [address], 09/07/2023 06:26:22 09/06/19 24 09/07/2023 CBC (INCL UDES DIFF/ PLT) hemoglobin 13.5 g/dL 11.7-1 5.5 normal Not Available [address], [address], 09/07/2023 06:26:22 09/06/19 24 09/07/2023 CBC (INCL UDES DIFF/ PLT) hematocrit 40.6 % 35.0-4 5.0 normal Not Available [address], [address], 09/07/2023 06:26:22 09/06/19 24 09/07/2023 CBC (INCL UDES DIFF/ PLT) MCV 92.1 fL 80.0-1 00.0 normal Not Available [address], [address], 09/07/2023 06:26:22 09/06/19 24 09/07/2023 CBC (INCL UDES DIFF/ PLT) MCH 30.6 pg 27.0-3 3.0 normal Not Available [address], [address], 09/07/2023 06:26:22 09/06/19 24 09/07/2023 CBC (INCL UDES DIFF/ PLT) MCHC 33.3 g/dL 32.0-3 6.0 normal Not Available [address], [address], 09/07/2023 06:26:22 09/06/19 24 09/07/2023 CBC (INCL UDES DIFF/ PLT) RDW 13.0 % 11.0-1 5.0 normal Not Available [address], [address], 09/07/2023 06:26:22 09/06/19 24 09/07/2023 CBC (INCL UDES DIFF/ PLT) platelet count 293 thous and/u L 140-40 0 normal Not Available [address], [address], 09/07/2023 06:26:22 09/06/19 24 09/07/2023 CBC (INCL UDES DIFF/ PLT) MPV 10.8 fL 7.5-12 .5 normal Not Available [address], [address], 09/07/2023 06:26:22 09/06/19 24 09/07/2023 CBC (INCL UDES DIFF/ PLT) absolute neutrophils 2358 cells /uL 1500-7 800 normal Not Available [address], [address], 09/07/2023 06:26:22 09/06/19 24 09/07/2023 CBC (INCL UDES DIFF/ PLT) absolute lymphocytes 1598 cells /uL 850-39 00 normal Not Available [address], [address], 09/07/2023 06:26:22 09/06/19 24 09/07/2023 CBC (INCL UDES DIFF/ PLT) absolute monocytes 387 cells /uL 200-95 0 normal Not Available [address], [address], 09/07/2023 06:26:22 09/06/19 24 09/07/2023 CBC (INCL UDES DIFF/ PLT) absolute eosinophils 99 cells /uL 15-500 normal Not Available [address], [address], 09/07/2023 06:26:22 09/06/19 24 09/07/2023 CBC (INCL UDES DIFF/ PLT) absolute basophils 59 cells /uL 0-200 normal Not Available [address], [address], 09/07/2023 06:26:22 09/06/19 24 09/07/2023 CBC (INCL UDES DIFF/ PLT) neutrophils 52.4 % normal Not Available [facility] [address], [address], 09/07/2023 06:26:22 09/06/19 24 09/07/2023 CBC (INCL UDES DIFF/ PLT) lymphocytes 35.5 % normal Not Available [facility] [address], [address], 09/07/2023 06:26:22 09/06/19 24 09/07/2023 CBC (INCL UDES DIFF/ PLT) monocytes 8.6 % normal Not Available [facility] [address], [address], 09/07/2023 06:26:22 09/06/19 24 09/07/2023 CBC (INCL UDES DIFF/ PLT) eosinophils 2.2 % normal Not Available [facility] [address], [address], 09/07/2023 06:26:22 09/06/19 24 09/07/2023 CBC (INCL UDES DIFF/ PLT) basophils 1.3 % normal Not Available [facility] [address], [address], 09/07/2023 06:26:22 09/06/19 24 09/07/2023 T4, FREE T4, free 0.9 NG/dL 0.8-1. 8 normal Not Available [facility] [address], [address], 09/07/2023 06:26:23 09/06/19 24 09/07/2023 TSH TSH 5.91 mIU/L 0.40-4 .50 high Not Available [facility] [address], [address], 09/07/2023 06:26:24 04/27/20 24 04/27/2024 CBC/C OMPLE TE BLD COUNT W/DIF F white blood cells 5.2 x10'3 /uL 4.2-10 .8 Not Available [facility] (Lab) [address] [place], [address], 04/27/2024 13:30:15 04/27/20 24 04/27/2024 CBC/C OMPLE TE BLD COUNT W/DIF F red blood cells 4.33 x10'6 /uL 3.80-5 .20 Not Available [facility] (Lab) [address] [place], [address], 04/27/2024 13:30:15 04/27/20 24 04/27/2024 CBC/C OMPLE TE BLD COUNT W/DIF F hemoglobin 13.2 g/dL 12.0-1 5.6 Not Available [facility] (Lab) [address] [place], [address], 04/27/2024 13:30:15 04/27/20 24 04/27/2024 CBC/C OMPLE TE BLD COUNT W/DIF F hematocrit 41.2 % 35.7-4 5.7 Not Available [facility] (Lab) [address] [place], [address], 04/27/2024 13:30:15 04/27/20 24 04/27/2024 CBC/C OMPLE TE BLD COUNT W/DIF F mean red cell volume 95.2 fL 82.0-9 9.0 Not Available [facility] (Lab) [address] [place], [address], 04/27/2024 13:30:15 04/27/20 24 04/27/2024 CBC/C OMPLE TE BLD COUNT W/DIF F mean red cell hemoglobin 30.5 pg 27.0-3 3.0 Not Available [facility] (Lab) [address] [place], [address], 04/27/2024 13:30:15 04/27/20 24 04/27/2024 CBC/C OMPLE TE BLD COUNT W/DIF F mean RBC HGB concentratio n 32.0 g/dL 31.0-3 6.0 Not Available [facility] (Lab) [address] [place], [address], 04/27/2024 13:30:15 04/27/20 24 04/27/2024 CBC/C OMPLE TE BLD COUNT W/DIF F red cell distribution width 13.1 % 11.8-1 5.5 Not Available [facility] (Lab) [address] [place], [address], 04/27/2024 13:30:15 04/27/20 24 04/27/2024 CBC/C OMPLE TE BLD COUNT W/DIF F platelets 285 x10'3 /uL 150-40 0 Not Available [facility] (Lab) [address] [place], [address], 04/27/2024 13:30:15 04/27/20 24 04/27/2024 CBC/C OMPLE TE BLD COUNT W/DIF F mean platelet volume 9.9 fL 9.0-12 .4 Not Available [facility] (Lab) [address] [place], [address], 04/27/2024 13:30:15 04/27/20 24 04/27/2024 CBC/C OMPLE TE BLD COUNT W/DIF F neutrophils 58.0 % 39.0-7 2.0 Not Available [facility] (Lab) [address] [place], [address], 04/27/2024 13:30:15 04/27/20 24 04/27/2024 CBC/C OMPLE TE BLD COUNT W/DIF F lymphocytes 27.3 % 16.0-4 7.0 Not Available [facility] (Lab) [address] [place], [address], 04/27/2024 13:30:15 04/27/20 24 04/27/2024 CBC/C OMPLE TE BLD COUNT W/DIF F monocytes 11.4 % 5.0-12 .0 Not Available [facility] (Lab) [address] [place], [address], 04/27/2024 13:30:15 04/27/20 24 04/27/2024 CBC/C OMPLE TE BLD COUNT W/DIF F eosinophils 1.9 % 1.0-7. 0 Not Available [facility] (Lab) [address] [place], [address], 04/27/2024 13:30:15 04/27/20 24 04/27/2024 CBC/C OMPLE TE BLD COUNT W/DIF F basophils 1.0 % 0.0-2. 0 Not Available [facility] (Lab) [address] [place], [address], 04/27/2024 13:30:15 04/27/20 24 04/27/2024 CBC/C OMPLE TE BLD COUNT W/DIF F immature granulocytes 0.4 % 0.00-0 .50 Not Available [facility] (Lab) [address] [place], [address], 04/27/2024 13:30:15 04/27/20 24 04/27/2024 CBC/C OMPLE TE BLD COUNT W/DIF F neutrophils, absolute count 2.99 x10'3 /uL 1.5-8. 0 Not Available [facility] (Lab) [address] [place], [address], 04/27/2024 13:30:15 04/27/20 24 04/27/2024 CBC/C OMPLE TE BLD COUNT W/DIF F lymphocytes, absolute count 1.41 x10'3 /uL 1.07-3 .43 Not Available [facility] (Lab) [address] [place], [address], 04/27/2024 13:30:15 04/27/20 24 04/27/2024 CBC/C OMPLE TE BLD COUNT W/DIF F monocytes, absolute count 0.59 x10'3 /uL 0.29-0 .99 Not Available [facility] (Lab) [address] [place], [address], 04/27/2024 13:30:15 04/27/20 24 04/27/2024 CBC/C OMPLE TE BLD COUNT W/DIF F eosinophils, absolute count 0.10 x10'3 /uL 0.02-0 .53 Not Available [facility] (Lab) [address] [place], [address], 04/27/2024 13:30:15 04/27/20 24 04/27/2024 CBC/C OMPLE TE BLD COUNT W/DIF F basophils, absolute count 0.05 x10'3 /uL 0.01-0 .08 Not Available [facility] (Lab) [address] [place], [address], 04/27/2024 13:30:15 04/27/20 24 04/27/2024 CBC/C OMPLE TE BLD COUNT W/DIF F immature granulocytes ,absolute 0.02 x10'3 /uL 0.00-0 .05 Not Available [facility] (Lab) [address] [place], [address], 04/27/2024 13:30:15 04/27/20 24 04/27/2024 CBC/C OMPLE TE BLD COUNT W/DIF F nucleated red blood cells 0.0 % -0 Not Available [facility] (Lab) [address] [place], [address], 04/27/2024 13:30:15 04/27/20 24 04/27/2024 CBC/C OMPLE TE BLD COUNT W/DIF F NRBC# 0.00 x10'3 /uL Not Available [facility] (Lab) [address] [place], [address], 04/27/2024 13:30:15 04/27/20 24 04/27/2024 LIPID PANEL cholesterol 224 mg/dL 140-19 9 high NIH SHAGGY NSUS RECOM MENDA TION FOR WARREN STERO L: ADULT CHILD LOW RISK: <200 <170 BORDE RLINE : <200- 239 ----- HIGH RISK: >240 >200 Not Available [facility] (Lab) [address] [place], [address], 04/27/2024 13:40:55 04/27/20 24 04/27/2024 LIPID PANEL triglyceride s 159 mg/dL 0-150 high NIH SHAGGY NSUS REPOR T RECOM MENDA TION FOR TRIGL YCERI CHANNING: ADULT CHILD LOW RISK: <150 ----- BODER LINE: 150-1 99 ----- HIGH RISK: >200 ----- Not Available [facility] (Lab) [address] [place], [address], 04/27/2024 13:40:55 04/27/20 24 04/27/2024 LIPID PANEL HDL cholesterol 52 mg/dL 40- Not Available [facility] (Lab) [address] [place], [address], 04/27/2024 13:40:55 04/27/20 24 04/27/2024 LIPID PANEL LDL cholesterol, calculated 140 mg/dL 0-130 high NIH SHAGGY NSUS REPOR T RECOM MENDA TIONS FOR LDL: ADULT CHILD LOW RISK <130 <110 (OPTI MAL LDL) <100 ----- BORDE RLINE : 130-1 59 ----- HIGH RISK: >160 >130 A TRIGL YCERI DE RESUL T >400 INVAL IDATE S THE CALCU LATIO N FOR LDL FRACT IONAT ION - THE LDL RESUL T WILL NOT BE REPOR BERNICE. Not Available [facility] (Lab) [address] [place], [address], 04/27/2024 13:40:55 04/27/2004/27/2024 COMPR EHENS BREANA METAB OLIC PANEL sodium 140 mmol/ L 137-14 5 Not Available [facility] (Lab) [address] [place], [address], 04/27/2024 13:41:01 04/27/20 24 04/27/2024 COMPR EHENS BREANA METAB OLIC PANEL potassium 4.2 mmol/ L 3.5-5. 1 Not Available [facility] (Lab) [address] [place], [address], 04/27/2024 13:41:01 04/27/20 24 04/27/2024 COMPR EHENS BREANA METAB OLIC PANEL chloride 108 mmol/ L 98-107 high Not Available [facility] (Lab) [address] [place], [address], 04/27/2024 13:41:01 04/27/20 24 04/27/2024 COMPR EHENS BREANA METAB OLIC PANEL carbon dioxide 26 mmol/ L 22-30 Not Available [facility] (Lab) [address] [place], [address], 04/27/2024 13:41:01 04/27/20 24 04/27/2024 COMPR EHENS BREANA METAB OLIC PANEL anion gap 10.2 mmol/ L 14-22 low Not Available [facility] (Lab) [address] [place], [address], 04/27/2024 13:41:01 04/27/20 24 04/27/2024 COMPR EHENS BREANA METAB OLIC PANEL glucose 92 mg/dL 70-99 Not Available [facility] (Lab) [address] [place], [address], 04/27/2024 13:41:04/27/20 24 04/27/2024 COMPR EHENS BREANA METAB OLIC PANEL BUN 19 mg/dL 8-19 Not Available [facility] (Lab) [address] [place], [address], 04/27/2024 13:41:01 04/27/20 24 04/27/2024 COMPR EHENS BREANA METAB OLIC PANEL creatinine 0.99 mg/dL 0.66-1 .25 Not Available [facility] (Lab) [address] [place], [address], 04/27/2024 13:41:01 04/27/20 24 04/27/2024 COMPR EHENS BREANA METAB OLIC PANEL GFR 55 Refer ence Range : Valatie ge GFR Healt hy Adult : >60 mL/mi n/1.7 3 m2 Chron ic Kidne y Disea se: 15-60 mL/mi n/1.7 3 m2 Kidne y Failu re: <15/m L/min /1.73 m2 www.n iddk. nih.g ov The MDRD study equat ion has not been valid ated in child cristal <18 years of age; pregn ant women ; the elder ly >85 years of age; or in some racia l or ethni c subgr oups, such as Amanda nics. Outsi de the valid ated andra eters , estim ated GFR is less accur ate, requi ring clini nieves judgm ent on a case- by-ca se basis . Clini nieves inter preta tion for other races and ages must be made by the clini ryan. The MDRD study equat ion has not been valid ated for the evalu ation of serum creat inine relat ed to nutri lester l statu s or medic ation usage . For perso ns <18 years of age, a pedia tric GFR calcu lator is avail able on the F websi te: https ://tessie troncoso.criselda tobin.o rg/pr ofess ional s/kdo qi/gf r_cal culat or Not Available [facility] (Lab) [address] [place], [address], 04/27/2024 13:41:01 04/27/20 24 04/27/2024 COMPR EHENS BREANA METAB OLIC PANEL alkaline phosphatase 89 U/L 38-126 Not Available [facility] (Lab) [address] [place], [address], 04/27/2024 13:41:01 04/27/20 24 04/27/2024 COMPR EHENS BREANA METAB OLIC PANEL alanine aminotransfe rase 11 U/L 0-35 Not Available [facility] (Lab) [address] [facility] [place], [address], 04/27/2024 13:41:01 04/27/20 24 04/27/2024 COMPR EHENS BREANA METAB OLIC PANEL aspartate aminotransfe rase 32 U/L 15-37 Not Available [facility] (Lab) [address] [place], [address], 04/27/2024 13:41:01 04/27/20 24 04/27/2024 COMPR EHENS BREANA METAB OLIC PANEL bilirubin, total 0.40 mg/dL 0.20-1 .30 Not Available [facility] (Lab) [address] [place], [address], 04/27/2024 13:41:01 04/27/20 24 04/27/2024 COMPR EHENS BREANA METAB OLIC PANEL calcium 9.6 mg/dL 8.4-10 .2 Not Available [facility] (Lab) [address] [place], [address], 04/27/2024 13:41:01 04/27/20 24 04/27/2024 COMPR EHENS BREANA METAB OLIC PANEL total protein 7.0 g/dL 6.3-8. 2 Not Available [facility] (Lab) [address] [place], [address], 04/27/2024 13:41:01 04/27/20 24 04/27/2024 COMPR EHENS BREANA METAB OLIC PANEL albumin 4.1 g/dL 3.0-4. 4 Not Available [facility] (Lab) [address] [place], [address], 04/27/2024 13:41:01 04/27/20 24 04/27/2024 COMPR EHENS BREANA METAB OLIC PANEL globulin 2.9 g/dL 2.6-4. 2 Not Available [facility] (Lab) [address] [place], [address], 04/27/2024 13:41:01 04/27/20 24 04/27/2024 COMPR EHENS BREANA METAB OLIC PANEL A/G ratio 1.4 ratio 1.0-2. 0 Not Available [facility] (Lab) [address] [place], [address], 04/27/2024 13:41:01 09/11/19 25 09/12/2024 LIPID PANEL , [place] cholesterol, total 197 mg/dL <200 normal Not Available [facility] [address], [address], 09/12/2024 05:37:09 09/11/1909/12/2024 LIPID PANEL , [place] HDL cholesterol 39 mg/dL > or = 50 low Not Available [facility] [address] [place], [address], 09/12/2024 05:37:09 09/11/1909/12/2024 LIPID PANEL , [place] triglyceride s 169 mg/dL <150 high Not Available [facility] [address], [address], 09/12/2024 05:37:09 09/11/19 25 09/12/2024 LIPID PANEL , [place] LDL-choleste rol 129 mg/dL _(nieves c) high Refer ence range : <100 Natalee able range <100 mg/dL for prima ry preve ntion ; <70 mg/dL for patie nts with CHD or diabe tic patie nts with > or = 2 CHD risk facto rs. LDL-C is now calcu lated using the Christy n-Hop kins calcu stephanie n, which is a valid ated novel metho d provi ding palmer r accur acy than the Fried oniel equat ion in the estim ation of LDL-C . Christy mendoza SS et al. EDMOND. 2013; 310(1 9): 2061- 2068 (http ://ed ucati on.Qu estRover Apps. com/f aq/FA Q164) Not Available [place] [address] [address] [place], [address], 09/12/2024 05:37:09 09/11/19 25 09/12/2024 LIPID PANEL , [place] chol/HDLC ratio 5.1 (calc ) <5.0 high Not Available [address], [address], 09/12/2024 05:37:09 09/11/19 25 09/12/2024 LIPID PANEL , [place] non HDL cholesterol 158 mg/dL _(nieves c) <130 high For patie nts with diabe lui plus 1 major ASCVD risk facto r, treat ing to a non-H DL-C goal of <100 mg/dL (LDL- C of <70 mg/dL ) is consi gabby a tom perry optio n. Not Available [address] [address] [place], [address], 09/12/2024 05:37:09 09/11/19 25 09/12/2024 COMPR EHENS BREANA METAB OLIC PANEL glucose 90 mg/dL 65-99 normal Fasti ng refer ence inter luis f Not Available [facility] [place] [address] [address] [place], [address], 09/12/2024 05:37:12 09/11/19 25 09/12/2024 COMPR EHENS BREANA METAB OLIC PANEL urea nitrogen (BUN) 12 mg/dL 7-25 normal Not Available [address], [address], 09/12/2024 05:37:12 09/11/19 25 09/12/2024 COMPR EHENS BREANA METAB OLIC PANEL creatinine 1.03 mg/dL 0.60-1 .00 high Not Available [address], [address], 09/12/2024 05:37:12 09/11/19 25 09/12/2024 COMPR EHENS BREANA METAB OLIC PANEL eGFR 57 mL/mi n/1.7 3m2 > or = 60 low Not Available [address], [address], 09/12/2024 05:37:12 09/11/19 25 09/12/2024 COMPR EHENS BREANA METAB OLIC PANEL BUN/creatini ne ratio 12 (calc ) 6-22 normal Not Available [address], [address], 09/12/2024 05:37:12 09/11/19 25 09/12/2024 COMPR EHENS BREANA METAB OLIC PANEL sodium 143 mmol/ L 135-14 6 normal Not Available [address], [address], 09/12/2024 05:37:12 09/11/19 25 09/12/2024 COMPR EHENS BREANA METAB OLIC PANEL potassium 4.6 mmol/ L 3.5-5. 3 normal Not Available [address], [address], 09/12/2024 05:37:12 09/11/19 25 09/12/2024 COMPR EHENS BREANA METAB OLIC PANEL chloride 108 mmol/ L 98-110 normal Not Available [address], [address], 09/12/2024 05:37:12 09/11/19 25 09/12/2024 COMPR EHENS BREANA METAB OLIC PANEL carbon dioxide 29 mmol/ L 20-32 normal Not Available [address], [address], 09/12/2024 05:37:12 09/11/19 25 09/12/2024 COMPR EHENS BREANA METAB OLIC PANEL calcium 9.9 mg/dL 8.6-10 .4 normal Not Available [address], [address], 09/12/2024 05:37:12 09/11/19 25 09/12/2024 COMPR EHENS BREANA METAB OLIC PANEL protein, total 6.7 g/dL 6.1-8. 1 normal Not Available [address], [address], 09/12/2024 05:37:12 09/11/19 25 09/12/2024 COMPR EHENS BREANA METAB OLIC PANEL albumin 4.4 g/dL 3.6-5. 1 normal Not Available [address], [address], 09/12/2024 05:37:12 09/11/19 25 09/12/2024 COMPR EHENS BREANA METAB OLIC PANEL globulin 2.3 g/dL_ (calc ) 1.9-3. 7 normal Not Available [address], [address], 09/12/2024 05:37:12 09/11/19 25 09/12/2024 COMPR EHENS BREANA METAB OLIC PANEL albumin/glob ulin ratio 1.9 (calc ) 1.0-2. 5 normal Not Available [address], [address], 09/12/2024 05:37:12 09/11/19 25 09/12/2024 COMPR EHENS BREANA METAB OLIC PANEL bilirubin, total 0.6 mg/dL 0.2-1. 2 normal Not Available [address], [address], 09/12/2024 05:37:12 09/11/19 25 09/12/2024 COMPR EHENS BREANA METAB OLIC PANEL alkaline phosphatase 83 U/L 37-153 normal Not Available [facility] [address], [address], 09/12/2024 05:37:12 09/11/19 25 09/12/2024 COMPR EHENS BREANA METAB OLIC PANEL AST 23 U/L 10-35 normal Not Available [address], [address], 09/12/2024 05:37:12 09/11/19 25 09/12/2024 COMPR EHENS BREANA METAB OLIC PANEL ALT 8 U/L 6-29 normal Not Available [address], [address], 09/12/2024 05:37:12 09/11/19 25 09/12/2024 CBC (INCL UDES DIFF/ PLT) white blood cell count 5.0 thous and/u L 3.8-10 .8 normal Not Available [address], [address], 09/12/2024 05:37:13 09/11/19 25 09/12/2024 CBC (INCL UDES DIFF/ PLT) red blood cell count 4.54 pedro on/uL 3.80-5 .10 normal Not Available [address], [address], 09/12/2024 05:37:13 09/11/19 25 09/12/2024 CBC (INCL UDES DIFF/ PLT) hemoglobin 13.3 g/dL 11.7-1 5.5 normal Not Available [facility] [address] [place], [address], 09/12/2024 05:37:13 09/11/1909/12/2024 CBC (INCL UDES DIFF/ PLT) hematocrit 42.2 % 35.0-4 5.0 normal Not Available [facility] [address], [address], 09/12/2024 05:37:13 09/11/1909/12/2024 CBC (INCL UDES DIFF/ PLT) MCV 93.0 fL 80.0-1 00.0 normal Not Available [facility] [address], [address], 09/12/2024 05:37:13 09/11/1909/12/2024 CBC (INCL UDES DIFF/ PLT) MCH 29.3 pg 27.0-3 3.0 normal Not Available [facility] [address], [address], 09/12/2024 05:37:13 09/11/1909/12/2024 CBC (INCL UDES DIFF/ PLT) MCHC 31.5 g/dL 32.0-3 6.0 low For adult s, a sligh t decre ase in the calcu lated MCHC value (in the range of 30 to 32 g/dL) is most likel y not clini ivon signi kenyon t; alisia er, it shoul d be inter prete d with cauti on in corre latio n with other red cell andra eters and the patie nt's clini nieves condi tion. Not Available [facility] [address], [address], 09/12/2024 05:37:13 09/11/1909/12/2024 CBC (INCL UDES DIFF/ PLT) RDW 12.0 % 11.0-1 5.0 normal Not Available [facility] [address], [address], 09/12/2024 05:37:13 09/11/19 25 09/12/2024 CBC (INCL UDES DIFF/ PLT) platelet count 269 thous and/u L 140-40 0 normal Not Available [address], [address], 09/12/2024 05:37:13 09/11/19 25 09/12/2024 CBC (INCL UDES DIFF/ PLT) MPV 10.4 fL 7.5-12 .5 normal Not Available [address], [address], 09/12/2024 05:37:13 09/11/19 25 09/12/2024 CBC (INCL UDES DIFF/ PLT) absolute neutrophils 2805 cells /uL 1500-7 800 normal Not Available [address], [address], 09/12/2024 05:37:13 09/11/19 25 09/12/2024 CBC (INCL UDES DIFF/ PLT) absolute lymphocytes 1655 cells /uL 850-39 00 normal Not Available [address], [address], 09/12/2024 05:37:13 09/11/19 25 09/12/2024 CBC (INCL UDES DIFF/ PLT) absolute monocytes 400 cells /uL 200-95 0 normal Not Available [address], [address], 09/12/2024 05:37:13 09/11/19 25 09/12/2024 CBC (INCL UDES DIFF/ PLT) absolute eosinophils 90 cells /uL 15-500 normal Not Available [address], [address], 09/12/2024 05:37:13 09/11/19 25 09/12/2024 CBC (INCL UDES DIFF/ PLT) absolute basophils 50 cells /uL 0-200 normal Not Available [address] [place], [address], 09/12/2024 05:37:13 09/11/19 25 09/12/2024 CBC (INCL UDES DIFF/ PLT) neutrophils 56.1 % normal Not Available [facility] [address], [address], 09/12/2024 05:37:13 09/11/1909/12/2024 CBC (INCL UDES DIFF/ PLT) lymphocytes 33.1 % normal Not Available [facility] [address], [address], 09/12/2024 05:37:13 09/11/19 25 09/12/2024 CBC (INCL UDES DIFF/ PLT) monocytes 8.0 % normal Not Available [facility] [address], [address], 09/12/2024 05:37:13 09/11/19 25 09/12/2024 CBC (INCL UDES DIFF/ PLT) eosinophils 1.8 % normal Not Available [facility] [address], [address], 09/12/2024 05:37:13 09/11/1909/12/2024 CBC (INCL UDES DIFF/ PLT) basophils 1.0 % normal Not Available [facility] [address], [address], 09/12/2024 05:37:13 09/11/1909/12/2024 T4, FREE T4, free 1.0 NG/dL 0.8-1. 8 normal Not Available [facility] [address], [address], 09/12/2024 05:37:14 09/11/19 25 09/12/2024 TSH TSH 5.29 mIU/L 0.40-4 .50 high Not Available [facility] [address], [address], 09/12/2024 05:37:15 09/11/19 25 09/12/2024 VITAM IN D,25- OH,TO ANGUS,I A vitamin D,25-oh,tota l,ia 65 NG/mL 30-100 normal Vitam in D Statu s 25-OH Vitam in D: Defic iency : <20 ng/mL Insuf ficie ncy: 20 - 29 ng/mL Optim al: > or = 30 ng/mL For 25-OH Vitam in D testi ng on patie nts on D2-mccall pplem entat ion and patie nts for whom quant itati on of D2 and D3 fract ions is requi red, the [facility] Ass[facility] eD(TM ) 25-OH VIT D, (D2,D 3), LC/MS /MS is recom elida d: order code 63339 (jamie ents >2yrs ). See Note 1 Note 1 For addit ional infor joyce lynn refer to http: //[facility] naomie Tinoco stDia gnost ics.c om/fa q/FAQ 199 (This link is being provi ded for infor ila wilson/ nj garcia purpo ses only. ) Not Available [address] [address] [address], [place], [address], 09/12/2024 05:37:16 09/07/19 24 09/03/2023 bone densi ty No observ ation record ed. [address], [place], [address], 09/07/2023 13:50:19 09/20/19 24 09/03/2023 bone densi ty No observ ation record ed. [address], [place], [address], 09/22/2023 13:54:46 09/20/19 24 09/07/2023 DEXA No observ ation record ed. [address], [place], [address], 09/22/2023 13:54:46 02/17/20 24 02/17/2024 MAMMO , scree fazal, digit al, bilat eral No observ ation record ed. [address], [place], [address], 02/17/2024 10:00:53 02/23/20 24 02/23/2024 elect romyo gram + nerve condu ction study No observ ation record ed. [place] [id number] [id number] [address] [facility], [place], [address], 02/24/2024 08:29:42 03/13/20 24 03/07/2024 MRI, brain + brain stem, w/wo contr ast No observ ation record ed. [address] [place], [address], 03/13/2024 14:21:52 06/30/20 24 06/30/2024 US, thyro id No observ ation record ed. [place] [id number] [facility] [address], [place], [address], 07/01/2024 09:13:51 Result Notes None recorded. Problems Name Problem SNOMED Code Status Onset Date Resolution Date Notes Provider Name and Address Organization Details Recorded Time Pain of right ankle joint 1411497050660 9106 Active 2019 Not Available [facility] 3 14:49:21 Congenital pes cavus 945104760 Active 2019 Not Available [facility] 3 14:49:21 Pure hyperchole sterolemia 080083328 Active 2018 Not Available [facility] 3 14:49:22 Depressive disorder 66046887 Active 2018 Not Available [facility] 3 14:49:22 Acute urinary tract infection 877424917 Active 2021 Not Available [facility] 3 14:49:22 Carcinoma of female breast 959209180 Active 2018 Not Available [facility] 3 14:49:22 Osteoporos is 33361728 Active 2018 Not Available [facility] 3 14:49:22 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 Not Available [facility] 3 14:49:22 Acute sinusitis 63638837 Active 2022 Pasquale Guadarrama MD [address], [address], [place], [address] , [place] [facility] 3 11:13:26 Pain in left foot 0121215764637 07 Active 2022 VIKRAM Lr, [place] [facility] 3 09:45:10 Contact dermatitis caused by urushiol from [facility] 338931714 Active 2022 Pasquale Guadarrama MD [address], [address], [place], [address] , [place] [facility] 3 10:54:50 Urinary incontinen ce 609713499 Active 2022 Pasquale Guadarrama MD [address], [address], [place], [address] , [facility] 3 15:30:52 Contusion of right foot 9332624423297 9103 Active 2022 Pasquale Guadarrama MD [address], [address], [place], [address] , [facility] 3 15:36:49 Pain of left knee joint 3128573347841 07 Active 2022 Leny zuniga, [place] [facility] 3 15:42:04 Anxiety 92861934 Active 2023 Pasquale Guadarrama MD [address], [address], [place], [address] , [facility] 4 16:48:10 Senile osteoporos is 58295759 Active 2023 Leny zuniga, [facility] 4 11:55:54 Eruption 476804209 Active 2023 Pasquale Guadarrama MD [address] [facility] [address], [place], [address] , [facility] 4 15:38:00 Generalize d rash 681178101 Active 2023 Luna Pryor CMA null, [facility] 4 12:19:17 Thyroid nodule 009041672 Active 2023 Luna Pryor CMA null, [facility] 4 15:08:55 Vitamin D deficiency 39606616 Active 2024 Pasquale Guadarrama MD [address] [facility] [address], [place], [address] , [facility] 5 11:29:30 Problem Notes None recorded. Procedures Surgical History Date Name Laterality Status Provider Name and Address Organization Details Recorded Time 08/27/19 24 Medicare Wellness CPT Code, subsequent completed Danica Wilkerson RN [facility] 08/27/2023 11:21:01 03/06/20 20 Date of Last Colonoscopy completed Not Available [facility] 10/07/2022 14:46:05 05/11/20 19 Most Recent Bone Density completed Not Available [facility] 10/07/2022 14:46:05 Imaging Results Imaging Date Name Status LastModified by Organization Details LastModified Time 09/03/2023 bone density completed [address], [place], [address], 09/07/2023 13:50:19 09/03/2023 bone density completed [address] [facility] [address], [place], [address], 09/22/2023 13:54:46 09/07/2023 DEXA completed [address] [address], [place], [address], 09/22/2023 13:54:46 02/17/2024 MAMMO, screening, digital, bilateral completed [place] [id number] [facility] [address], [place], [address], 02/17/2024 10:00:53 02/23/2024 electromyogram + nerve conduction study completed [place] [id number] [id number] [address] [facility], [place], [address], 02/24/2024 08:29:42 03/07/2024 MRI, brain + brain stem, w/wo contrast completed [address] [place], [address], 03/13/2024 14:21:52 06/30/2024 US, thyroid completed [place] [id number] [facility] [address], [place], [address], 07/01/2024 09:13:51 Procedure Notes None recorded. Medical Equipment None Reported. Allergies Allergen ID Allergen Name Allergen Category Reaction Reaction Severity Criticality Documentation Date Start Date Code Code System Note Provider Name and Address Organization Details Recorded Time 60222 latex environme nt,medica tion rash Not available Not available 10/07/2022 46336 91 RxNorm Not Available [facility] 3 14:52:34 83897 chloroxyl enol medicatio n Not available Not available Not available 10/07/2022 95482 RxNorm Not Available [facility] 3 14:52:34 [address] Iodinated contrast media (substanc e) medicatio n rash Not available low 03/30/2024 61743 2003 SNOMED Pasquale Guadarrama MD [address] [facility], [place], [address] , [facility] - [facility] [employer] 4 15:45:36 Medications Name Sig Start Date Stop Date Status Note LastModified by Organization Details LastModified Time amoxicillin 500 mg capsule Take 1 capsule every 8 hours by oral route. 05/08 completed Not Available Not Available Not Available benzonatate 200 mg capsule Take 1 capsule 3 times a day by oral route. active Not Available Not Available No t Available valacyclovi r 1 gram tablet TAKE 1 TABLET BY MOUTH THREE TIMES DAILY FOR 10 DAYS 12/22 completed Not Available Not Available Not Available hydrocodone 5 mg-acetamin ophen 325 mg tablet TAKE 1 TABLET BY MOUTH EVERY 8 HOURS NEEDED 12/22 completed Not Available Not Available Not Available spironolact one 100 mg tablet Take 1 tablet every day by oral route. 12/22 completed Not Available Not Available Not Available diphenoxyla te-atropine 2.5 mg-0.025 mg tablet Take 2 tablets every day by oral route as needed. 2024 active Not Available Not Available Not Avai lable Zyrtec 10 mg tablet Take 1 tablet every day by oral route. 2021 active Not Available Not Available Not Avai lable triamcinolo ne acetonide 0.1 % topical cream APPLY A THIN LAYER TO THE AFFECTED AREA(S) BY TOPICAL ROUTE 2 TIMES PER DAY active Not Available Not Available No t Available amoxicillin 500 mg tablet TAKE 4 TABLETS BY MOUTH 1 HOUR BEFORE SURGERY 05/25 completed Not Available Not Available Not Available clobetasol 0.05 % topical gel APPLY A THIN LAYER TO THE AFFECTED AREA(S) BY TOPICAL ROUTE 2 TIMES PER DAY 11/03 completed Not Available Not Available Not Available Mobic 15 mg tablet Take 1 tablet(s) every day by oral route. 08/27 completed Not Available Not Available Not Available alendronate 35 mg tablet TAKE 1 TABLET BY MOUTH WEEKLY WITH 8 OZ OF PLAIN WATER 30 MINUTES BEFORE FIRST FOOD, DRINK OR MEDS. STAY UPRIGHT FOR 30 MINS 05/08 completed Not Available Not Available Not Available Fosamax 70 mg tablet Take 1 tablet every week by oral route. active Not Available Not Available No t Available biotin 10,000 mcg capsule Take 1 capsule twice a day by oral route. 08/29 completed Not Available Not Available Not Available neomycin-po lymyxin-dex ameth 3.5 mg/mL-10,00 0 unit/mL-0.1 % eye drops INSTILL 1 DROP INTO RIGHT EYE THREE TIMES DAILY FOR 7 DAYS 12/22 completed Not Available Not Available Not Available magnesium 500 mg (as magnesium oxide) tablet Take 1 tablet every day by oral route. active Not Available Not Available No t Available montelukast 10 mg tablet TAKE 1 TABLET DAILY active Not Available Not Available No t Available lorazepam 1 mg tablet TAKE 1 TABLET BY MOUTH THREE TIMES DAILY NEEDED 12/22 completed Not Available Not Available Not Available hydroxychlo roquine 200 mg tablet Take 1 tablet twice a day by oral route. active Not Available Not Available No t Available methylpredn isolone 4 mg tablets in a dose pack FOLLOW PACKAGE DIRECTION S 04/27 completed Not Available Not Available Not Available cefdinir 300 mg capsule TAKE 1 CAPSULE BY MOUTH EVERY 12 HOURS 05/25 completed Not Available Not Available Not Available neomycin 3.5 mg/g-polymy latrice B 10,000 unit/g-dexa meth 0.1 % eye oint APPLY THIN LAYER IN LEFT EYE TWICE DAILY 12/22 completed Not Available Not Available Not Available escitalopra m 20 mg tablet TAKE 1 TABLET DAILY active Not Available Not Available No t Available chlorhexidi ne gluconate 0.12 % mouthwash SWISH AND SPIT 10-15 CC TWICE DAILY FOR ONE WEEK BEFORE AND AFTER SURGERY 12/22 completed Not Available Not Available Not Available saw palmetto 1200 mg od 2021 active Not Available Not Available Not Avai lable Os-Nieves 500 + D3 one twice a day 11/03 completed Not Available Not Available Not Available cetirizine 10 mg capsule Take by oral route. 11/03 completed Not Available Not Available Not Available Os-Nieves 500 + D3 500 mg-15 mcg (600 unit) tablet Take 1 tablet every day by oral route. 2021 active Not Available Not Available Not Avai lable Flonase Allergy Relief 50 mcg/actuati on nasal spray,suspe nsion [place] 2 sprays every day by intranasa l route. 08/29 completed Not Available Not Available Not Available Fish Oil 1,000 mg (120 mg-180 mg) capsule Take 1 capsule every day by oral route. active Not Available Not Available No t Available Metamucil 0.4 gram capsule Take 1 capsule every day by oral route. 2018 active Not Available Not Available Not Avai lable Fluad 65yr up(PF)45 mcg(15 mcgx3)/0.5 mL intramuscul ar syringe active Not Available Not Available N ot Available Vitals Date Recorded Body height Body mass index (BMI) Body weight Heart rate Body temperature Oxygen saturation Oxygen saturation in Arterial blood by Pulse oximetry Systolic blood pressure Diastolic blood pressure Provider Name and Address Organization Details Last Updated DateTime 4 162.56 cm 22.8 kg/m2 06796.7 9 g 82 /min 97 [degF] 96 % 96 % 138 mm[Hg] 74 mm[Hg] [facility] 4 11:15:22 Date Recorded Pain severity - 0-10 verbal numeric rating [Score] - Reported Provider Name and Address Organization Details Last Updated DateTime 08/27/2023 0 Danica Wilkerson RN [facility] [employer] [facility] 08/27/2023 11:21:26 Date Recorded Body height Body mass index (BMI) Body weight Heart rate Body temperature Oxygen saturation Oxygen saturation in Arterial blood by Pulse oximetry Systolic blood pressure Diastolic blood pressure Provider Name and Address Organization Details Last Updated DateTime 4 162.56 cm 22.6 kg/m2 28750.4 g 87 /min 97 [degF] 95 % 95 % 120 mm[Hg] 60 mm[Hg] [facility] [facility] 4 14:34:04 Date Recorded Body height Body mass index (BMI) Body weight Heart rate Body temperature Oxygen saturation Oxygen saturation in Arterial blood by Pulse oximetry Systolic blood pressure Diastolic blood pressure Provider Name and Address Organization Details Last Updated DateTime 4 162.56 cm 21.8 kg/m2 87499.2 3 g 77 /min 97.8 [degF] 98 % 98 % 162 mm[Hg] 88 mm[Hg] SHANNO Razo [facility] [employer] [facility] 4 15:35:31 Date Recorded Body height Body mass index (BMI) Body weight Heart rate Body temperature Oxygen saturation Oxygen saturation in Arterial blood by Pulse oximetry Systolic blood pressure Diastolic blood pressure Provider Name and Address Organization Details Last Updated DateTime 4 162.56 cm 22 kg/m2 23117.8 2 g 88 /min 97 [degF] 98 % 98 % 122 mm[Hg] 60 mm[Hg] Alissa Nick AHBoy CT [employer] [facility] 4 11:04:37 Date Recorded Body height Body mass index (BMI) Body weight Heart rate Oxygen saturation Oxygen saturation in Arterial blood by Pulse oximetry Systolic blood pressure Diastolic blood pressure Provider Name and Address Organization Details Last Updated DateTime 5 162.56 cm 22.8 kg/m2 56531.7 9 g 79 /min 98 % 98 % 120 mm[Hg] 78 mm[Hg] Alissa Nick Boy [place] [employer] [facility] 5 11:12:38 Social History Question Answer Notes LastModified by Organizat ion Details LastModified Time Tobacco Smoking Status Never Smoker Not Available [facility] 10/07/2022 14:45:49 Do You Have An Advance Directive? Yes [email or web address] Information not available 08/27/2023 What Is Your Level Of Alcohol Consumption? Occasional MIGRATION.[id number] Information not available 10/07/2022 Are You Blind Or Do You Have Difficulty Seeing? No MIGRATION.220493 5722 Information not available 10/07/2022 Are You Deaf Or Do You Have Serious Difficulty Hearing? No MIGRATION.467128 8256 Information not available 10/07/2022 What Type Of Diet Are You Following? REGULAR MIGRATION.423689 1353 Information not available 10/07/2022 Have There Been Any Changes To Your Family Or Social Situation? Yes [email or web address] Information not available 08/27/2023 What Is The Fluoride Status Of Your Home? Unknown MIGRATION.794590 9142 Information not available 10/07/2022 Are There Any Guns Present In Your Home? No MIGRATION.[id number] 3201 Information not available 10/07/2022 Do You Use Insect Repellent Routinely? No MIGRATION.185126 7321 Information not available 10/07/2022 Where Do You Live? [place] MIGRATION.[id number] 7393 Information not available 10/07/2022 Guns Present In The Home? No [email or web address] Information not available 08/27/2023 Are You Able To Care For Yourself? Yes [email or web address] Information not available 08/27/2023 Are You Blind Or Do Yo Have Difficulty Seeing? No [email or web address] Information not available 08/27/2023 Are You Deaf Or Do You Have Serious Difficulty Hearing? No [email or web address] Information not available 08/27/2023 Live Alone Of With Others? Alone [email or web address] Information not available 08/27/2023 Do You Have A Medical Power Of Die Drawing Checker? Yes [email or web address] Information not available 08/27/2023 What Was The Date Of Your Most Recent Tobacco Screening? 08/27/2023 Information not available 08/27/2023 Have You Ever Been Counseled For Unhealthy Alcohol Use? No MIGRATION.550001 6347 Information not available 10/07/2022 Do You Have Any Pets? No [email or web address] Information not available 08/27/2023 What Is Your Relationship Status? Single MIGRATION.962332 2539 Information not available 10/07/2022 Do You Use Your Seat Belt Or Car Seat Routinely? Yes MIGRATION.579723 4670 Information not available 10/07/2022 Do You Have Smoke And Carbon Monoxide Detectors In Your Home? Yes MIGRATION.359813 5539 Information not available 10/07/2022 Are You Passively Exposed To Smoke? No MIGRATION.453979 1662 Information not available 10/07/2022 Are There Any Smokers In Your House? No MIGRATION.510677 9139 Information not available 10/07/2022 Do You Use Sunscreen Routinely? No MIGRATION.837614 2421 Information not available 10/07/2022 Have You Recently Traveled Abroad? No MIGRATION.196541 0250 Information not available 10/07/2022 Do You Have Any Dietary Restrictions? No MIGRATION.485569 3133 Information not available 10/07/2022 Sex: Unknown Functional Status Question Answer Note LastModified by Organizat ion Details LastModified Time Do you have difficulty walking or climbing stairs? Yes MIGRATION.47987 13641 Information not available 10/07/2022 Do you have transportation difficulties? No MIGRATION.97767 29451 Information not available 10/07/2022 Are you able to walk? YESWOREST Has cane she uses sometimes MIGRATION.64976 11929 Information not available 10/07/2022 Do you have difficulty doing errands alone? No MIGRATION.41952 17491 Information not available 10/07/2022 Are you able to care for yourself? Yes MIGRATION.70270 24689 Information not available 10/07/2022 Do you have difficulty dressing or bathing? No MIGRATION.15217 46136 Information not available 10/07/2022 What is your exercise level? None [email or web address] Information not available 08/27/2023 Mental Status Question Answer Note LastModified by Organizat ion Details LastModified Time Do you have difficulty concentrating, remembering or making decisions? No MIGRATION.[id number] 6 Information not available 10/07/2022 Family History Nothing Reported Notes:Mother 87 wit h arthritis Father 75 from [place] Two brothers and three sisters two living one of CA colon a half sister. Apparently recently found out about two other half sisters and possible hx of some spastic paralysis Medical History Condition Response NERVE DISEASE N BLINDNESS N RHEUMATIC FEVER N KIDNEY STONES N BLADDER PROBLEMS N MRSA N OTHER # 1 N POLIO N LUNG DISEASE/DISORDER N HISTORY OF DRUG ABUSE N RADIATION / CHEMOTHERAPY N COPD N Other # 2 N BLOOD DISEASES N EAR OR HEARING PROBLEMS N MUMPS N SHINGLES N BOWEL PROBLEMS N DEPRESSION (INCLUDING POST ) N STROKE/TIA N ULCERS N BENIGN PROSTATIC HYPERPLASIA N MEASLES N HYPOTENSION N MYOCARDIAL INFARCTION N OBESITY N GERD/NAUSEA N ANEURYSM N URINARY/BLADDER/KIDNEY PROBLEMS N CORONARY ARTERY DISEASE (CAD) N ADDICTION CONCERNS N Impotence N ENDOMETRIOSIS N USE OF BLOOD THINNERS N SKIN PROBLEMS N GASTROINTESTINAL DISORDER N PERIPHERAL VASCULAR DISEASE N MUSCLE,JOINT OR BONE PROBLEMS N GASTROINTESTINAL BLEEDING N BLOOD CLOTS N ASTHMA N CATARACTS N ERECTILE DYSFUNCTION N VARICOSITIES N GI PROBLEMS N Low Testosterone N INFERTILITY N AIDS/HIV N CHEMOTHERAPY / RADIATION N LIVER DISEASE N MALE HYPOGONADISM N HYPERTENSION N Deficiency N TOURETTE'S N ANXIETY DISORDER Y BLOOD TRANSFUSION N ANEMIA/BLOOD DISORDER N CHRONIC EAR INFECTIONS N BRONCHITIS N TUBERCULOSIS N GLAUCOMA N FOOT PROBLEM N DIVERTICULITIS N SLEEP APNEA N CHICKENPOX N INFECTIOUS DISEASE N PROSTATE N HEART ARRHYTHMIA N INSOMNIA N HIGH CHOLESTEROL / HYPERLIPIDEMIA Y EYE PROBLEMS N HYPERTHYROIDISM N EDEMA N CHRONIC PAIN SYNDROME N HYPOTHYROIDISM N CONSTIPATION N CAROTID BLOCKAGE N BACK / NECK PROBLEMS Y HAVE YOU BEEN HOSPITALIZED OR SEEN IN [facility] IN THE PAST YEAR ? N ATHEROSCLEROSIS N BREAST PROBLEMS N DIALYSIS N ECZEMA N OSTEOPOROSIS N ARTHRITIS N NO SIGNIFICANT PAST MEDICAL HISTORY N APPENDICITIS N DIABETES, TYPE N BAD TEETH N ENT N HEARTBURN / REFLUX N AUTISM SPECTRUM DISORDER (ASD) N HEPATITIS / LIVER DISEASE N GOUT N SLEEP DISORDER N ALZHEIMER'S DISEASE N Brain Problems N DEMENTIA N HERPES N SEIZURES/EPILEPSY N HEADACHES/MIGRAINES N VASCULAR DISEASE N PACEMAKER N Blood Disorder N DIZZINESS N HEART DISEASE/HEART PROBLEMS N KIDNEY DISEASE N MULTIPLE SCLEROSIS N CANCER: SPECIFY Y CARDIAC ARRHYTHMIA N ATRIAL FIBRILLATION N Gall Stones N PULMONARY EMBOLISM N AUTOIMMUNE DISEASE N Gynecological History Statement/Question Response Date of Last Mammogram 12/05/2021 Date of Last Colonoscopy 03/06/2020 Most Recent Bone Density 05/11/2019 Obstetrics History GPAL:G 0 P 0 0 0 0 Past Encounters Encounter ID Performer Location Encounter Start Date Encounter Closed Date Diagnosis/Indication Diagnosis SNOMED-CT Code Diagnosis ICD10 Code Diagnosis Note [id number] Pasquale Guadarrama MD [facility] [place] [address] [place] [address] y , [place] [address] 03/14/2021 00:00:00 03/14/2021 11:38:49 [id number] Pasquale Guadarrama MD [facility] Internal [place] [address] [place] [address] y , [place] [address] 05/16/2021 00:00:00 05/16/2021 11:05:47 [id number] Pasquale Guadarrama MD [facility] Internal Med [facility] [address] [facility], [facility] [address] [place] [address] 11/03/2021 00:00:00 11/03/2021 15:43:44 [id number] Pasquale Guadarrama MD [facility] Internal [place] [address] [place] [address] [place] [address] 05/08/2022 00:00:00 05/08/2022 11:28:40 [id number] Pasquale Guadarrama MD [facility] Internal [place] [address] [place] [address] [place] [address] 11/06/2022 10:57:39 11/06/2022 17:45:42 Carcinoma of female breast 198662299 C50.919 Pure hypercholesterolemia 101973967 E78.00 Sj gren's syndrome 55936752 M35.00 Acute sinusitis 82470677 J01.90 [id number] Pasquale Guadarrama MD [facility] Internal [place] [address] [place] [address] [place] [address] 02/26/2023 10:56:12 02/26/2023 11:15:45 Osteoporosis 40817040 M81.0 Depressive disorder 3548 9007 F32.A Carcinoma of female breast 804748191 C50.919 Pure hypercholesterolemia 008244590 E78.00 [id number] Pasquale Guadarrama MD [facility] Internal Med [place] [address] [place] [address] [place] [address] 05/25/2023 14:41:38 05/25/2023 15:43:35 Pure hypercholesterolemia 375522727 E78.00 Carcinoma of female breast 312825785 C50.919 Contusion of right foot 6639803914 1428418 S90.31XA Urinary incontinence 165 861206 R32 [id number] Pasquale Guadarrama MD [facility] Internal Med [place] [address] [place] [address] [place] [address] 08/27/2023 11:07:30 08/27/2023 11:58:05 Adult health examination 267600987 Z00.00 Screening for disorder 238942026 Z13.9 Carcinoma of female breast 641916702 C50.919 Pure hypercholesterolemia 455979631 E78.00 Sj gren's syndrome 70958080 M35.00 Depressive disorder 3548 9007 F32.A [id number] Pasquale Guadarrama MD [facility] Internal Med [facility] 24 [address] [facility] [address] [place] [address] 12/23/2023 14:08:48 12/23/2023 14:48:42 Pure hypercholesterolemia 010336567 E78.00 Anxiety 17357636 F41.9 Carcinoma of female breast 555235786 C50.650 [id number] Pasquale Guadarrama MD [facility] Internal Med [place] miranda [facility] [place] [address] 03/30/2024 15:28:01 03/30/2024 15:45:05 Eruption [id number] R21 [id number] Pasquale Guadarrama MD [facility] Internal Med [place] [address] [place] [address] [place] [address] 04/27/2024 10:49:42 04/27/2024 11:24:47 Carcinoma of female breast 099513581 C50.919 Pure hypercholesterolemia 716812575 E78.00 Osteoporosis 92673232 M8 1.0 [id number] Pasquale Guadarrama MD [facility] [place] [address] [facility] [address] [place] [address] 09/07/2024 10:52:22 09/07/2024 11:34:34 Depressive disorder 40764635 F32.A Osteoporosis 35801766 M8 1.0 Pure hypercholesterolemia 007370385 E78.00 Thyroid nodule 266479633 E04.1 Sj gren's syndrome 26046178 M35.00 Vitamin D deficiency 347 15856 E55.9 Health Concerns Section Related Observation LastModified by Organization Detai ls LastModified Time None Recorded Concern Status LastModified by Organization Details LastModified Time None Recorded Advance Directives Directive Y: Payers Encounter Date Sequence Insurance Name Policy Number Policy Flores Covered Member ID Flores Member ID Guarantor Name 08/27/2023 1 [employer] (MEDICARE REPLACEMENT HMO) SOFAIVinita Copelandsherrie Pnio [id number] Josephine Pierce 12/23/2023 1 [employer] (MEDICARE REPLACEMENT HMO) SOFIAVinita Copelandsherrie Pino [id number] Josephinesherrie Pierce 03/30/2024 1 [employer] (MEDICARE REPLACEMENT HMO) SOFIAVinita Josephine Pino [id number] Josephine Pierce 04/27/2024 1 [employer] (MEDICARE REPLACEMENT HMO) SOFIAVinita Copelandsherrie Pino [id number] Josephine Pierce 09/07/2024 1 [employer] (MEDICARE REPLACEMENT HMO) SOFIAVinita Josephine Pino [id number] Josephine Pierce Notes Date Note Type Note Provider Name and Address Organization Details Recorded Time 12/23/2023 text/html Patient Name: Malka cristal [place] Of Service: December ( 12.23.2023 ): 1950 Age: 73 There has been approximately a 1.5 lb weight loss since 08/27/2023. This represents approximately a 1.1% change in weight. Weight change attributable to lifestyle changes. Vital Signs:Blood Pressure: Sitting Rt. Arm 120/60Pulse: Sitting 87 /min and RegularRespiratory Rate: 12Height 64 in or 1.6 mWeight 131.5 lb or 59.6 kgBMI 22.6Temperature: 97 F or 36.1 CPulse Oximetry: 95 % at rest on no oxygen Chief Complaint: Addressed in HPI Problems or conditions discussed in the HPI were the only ones reviewed during the encounter.Only social and family history addressed in the HPI were reviewed during this encounter. Attendant(s): NoneConstitutional and Systemic Symptoms:none Medication Reconciliation: from medication list. History of Present Illness #1. Type II Hypercholesterolaemia: Currently taking medication and tolerating well. No interval complaints of any muscle pain or arthralgia. No significant liver changes with medications. Last lipid panel: no testing done recently. Therapy reviewed regarding treatment of cholesterol management and include diet. #2. Hx of Ca of the right breast(s). Sub classification: see oncology records. Metastasis: None Current Medications: none.. #3. Anxiety Disorder: History of anxiety disorder. There has been no panic attacks. No interval complaints of any vegetative or other signs of depression. Taking Lexapro. Discussed possibility of decreasing and weaning off medication. Feels that current regimen is working fine and wishes not to change the current treatment regimen. Medication not causing any sedation or cognitive dysfunction and there is no contraindication to continue current therapy. Active Medication ListAspirin 81 MG TABLET Once DailyZyrtec 10 MG TABLET, FILM COATED Once DailyPlaquenil 200 MG (TABLET - ORAL) Once DailySaw [place] 1200 MG Once DailyLexapro 20 MG (TABLET - ORAL) Once DailyMetamucil DailyOs-nieves D Twice A DayFosamax 35 MG (TABLET - ORAL) Weekly Adverse Drug Reactions ReviewedLatex Rash And Trouble Breathing Vaccination and Bpfzutgzuyem0297-83 Influenza Surgical Qhiyzkz6673-14 Rt. Twyyzxhuwm6968-39 Lumbar Ssoetkiuida2113-90 Lumbar Txypzbjdsdy9659-94 Lumbar Yamokxexuer8723-02 Partial Xafhrqrssyx9196-44 Exp. 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 Apparently recently found out about two other half sisters and possible hx of some spastic paralysis Pasquale Guadarrama MD [address] [facility], [facility] [address], [place], [address], [facility] [employer] 12/23/2023 14:43:21 03/30/2024 text/html Patient Name: Malka Salinas Of Service: March ( 03.30.2024 ): 1950 Age: 73 There has been approximately a 4.5 lb weight loss since 12/23/2023. This represents approximately a 3.4% change in weight. Weight change attributable to lifestyle changes. Vital Signs:Blood Pressure: Sitting Rt. Arm 162/88Pulse: Sitting 77 /min and RegularRespiratory Rate: 14Height 64 in or 1.6 mWeight 127 lb or 57.6 kgBMI 21.8Temperature: 97.8 F or 36.6 CPulse Oximetry: 98 % at rest on no oxygen Chief Complaint: Addressed in HPI Problems or conditions discussed in the HPI were the only ones reviewed during the encounter.Only social and family history addressed in the HPI were reviewed during this encounter. Attendant(s): NoneConstitutional and Systemic Symptoms:none Medication Reconciliation: from medication list. History of Present Illness #1. Intravenous dye done for CT scan several days ago had a subsequent cutaneous eruption initially beginning on the right side of the face involving the arms and now even into leg somewhat semi pruritic. Was concerned about the possibility of shingles. There is no evidence of any vesicular eruptions or any findings suggestive of herpes zoster. Already is on a steroid tapering pack.: Active Medication ListAspirin 81 MG TABLET Once DailyZyrtec 10 MG TABLET, FILM COATED Once DailyMontelukast 10 MG TABLET Once DailyFish Oil Caps DailyPlaquenil 200 MG (TABLET - ORAL) Once DailySaw [place] 1200 MG Once DailyLexapro 20 MG (TABLET - ORAL) Once DailyMetamucil DailyOs-nieves D Twice A DayFosamax 35 MG (TABLET - ORAL) Weekly Pasquale Guadarrama MD [address] [facility], [facility] [address], [place], [address], [facility] [employer] [facility] 03/30/2024 15:41:50 04/27/2024 text/html Patient Name: Malka Salinas Of Service: April ( 04.27.2024 ): 1950 Age: 73 Vital Signs:Blood Pressure: Sitting Rt. Arm 122/80Pulse: Sitting 88 /min and RegularRespiratory Rate: 14Height 64 in or 1.6 mWeight 128 lb or 58.1 kgBMI 22.0Temperature: 97 F or 36.1 CPulse Oximetry: 98 % at rest on no oxygen Chief Complaint: Addressed in HPI Problems or conditions discussed in the HPI were the only ones reviewed during the encounter.Only social and family history addressed in the HPI were reviewed during this encounter. Attendant(s): NoneConstitutional and Systemic Symptoms:none Medication Reconciliation: from medication list. Deamhwxflaf13-27-1761: MRI of the brain bilateral periventricular white matter hyperdensity. No focal enhancing parenchymal lesions noted. Multiple level disc and joint disease involving the cervical spine line below.03-07-2024: MRI of the cervical spine C2-C3 no disc bulging or foraminal stenosis. C3-C4 small central herniation no foraminal narrowing or canal narrowing. C4-C5 there is no disc bulge no foraminal narrowing. C5-C6 there central disc herniation bilateral facet hypertrophy is noted with moderate to severe left and mild moderate right foraminal narrowing. Anterior cord surface flattening seen. C6-C7 there is diffuse bulge bilateral facet in hypertrophy with mild central canal stenosis. C7-T1 no significant disc bulge. Focal well-circumscribed hypertense enhancing lesion seen within the C6 vertebral body could represent a atypical vertebral body hemangioma. Osseous metastases can not be totally ruled out. Recommend further evaluation CT scan of the cervical spine and whole-body bone [id number]: MRI of the thoracic spine T1 through T5 no disc bulge or foraminal narrowing. T5-T6 small central disc herniation no foraminal canal stenosis is seen T6- T7 small paracentral disc herniation no foraminal narrowing. T10-T11 mild diffuse bulge no facet hypertrophy no canal stenosis. T11-T12 no disc bulge. No foraminal narrowing. Some hypertrophy of the ligamentum flavum. History of Present Illness #1. History of carcinoma of the breast. Apparently had some back pain recently which a nuclear bone scan was performed which showed an abnormality in the thoracic area. Subsequently had a PET scan performed which apparently did not corroborate any evidence of any metastatic disease but is scheduled to see Oncology in the next several days for further evaluation. Denies any history of any other systemic complaints. The holding off doing further diagnostic studies on the back until the studies have been completed.: #2. Type II Hypercholesterolaemia: Currently taking medication and tolerating well. No interval complaints of any muscle pain or arthralgia. No significant liver changes with medications. Last lipid panel: fair control. Therapy reviewed regarding treatment of cholesterol management and include diet. #3. osteoporosis. No new complaints of any additional back,hip or other musculoskeletal complaints related to the osteoporosis. No hx of any recent trauma. Currently taking OsCal-D and Fosamax. Has has had a recent DEXA scan done within the last year. The FRAX Score for Hip Fracture is NA hx osteoporosis FRAX score for major fractures NA hx of osteoporosis Active Medication ListAspirin 81 MG TABLET Once DailyZyrtec 10 MG TABLET, FILM COATED Once DailyMontelukast 10 MG TABLET Once DailyFish Oil Caps DailyPlaquenil 200 MG (TABLET - ORAL) Once DailySaw [place] 1200 MG Once DailyMagox 500 MG Once DailyLexapro 20 MG (TABLET - ORAL) Once DailyMetamucil DailyOs-nieves D Twice A DayFosamax 35 MG (TABLET - ORAL) Weekly Adverse Drug Reactions ReviewedLatex Rash And Trouble BreathingIvp Dye Rash Vaccination and Bcssmrzkgyrs1645-03 Influenza Surgical Lwojmxr1787-52 Rt. Kekucsjxjh3515-93 Lumbar Wqqcdfrrghr1788-24 Lumbar Ytkzaewmblb1324-51 Lumbar Orwnuuerorv8288-89 Partial Xefjwzdyhsp8637-30 Exp. 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 Apparently recently found out about two other half sisters and possible hx of some spastic paralysis TEST RESULT RANGE UNITSLIPID PANEL, STANDARD Date: 09/06/2023HOLESTEROL, TOTAL 182 <200 MG/DLHDL CHOLESTEROL 44 > OR = 50 MG/DLTRIGLYCERIDES 156 <150 MG/DLLDL-CHOLESTEROL 111 MG/DL (CALC)CBC (INCLUDES DIFF/PLT) Date: 09/06/2023WHITE BLOOD CELL COUNT 4.5 3.8-10.8 THOUSAND/ULHEMOGLOBIN 13.5 11.7-15.5 G/DLHEMATOCRIT 40.6 35.0-45.0 %PLATELET COUNT 293 140-400 THOUSAND/ULCOMPREHENSIV E METABOLIC PANEL Date: 09/06/2023SODIUM 143 135-146 MMOL/LPOTASSIUM 4.1 3.5-5.3 MMOL/LGLUCOSE 88 65-99 MG/DLUREA NITROGEN (BUN) 12 7-25 MG/DLCREATININE 0.99 0.60-1.00 MG/DLEGFR 61 > OR = 60 ML/MIN/1.12R6QCNKFRFEL, TOTAL 0.3 0.2-1.2 MG/DLALKALINE PHOSPHATASE 82 37-153 U/LAST 24 10-35 U/LALT 7 6-29 U/LT4, FREE Date: 09/06/2023T4, FREE 0.9 0.8-1.8 NG/DLTSH Date: 09/06/2023TSH 5.91 0.40-4.50 MIU/L Pasquale Guadarrama MD [address] [facility], [address], [place], [address], [facility] 04/27/2024 11:21:07 09/07/2024 text/html Patient Name: Malka Salinas Of Service: August ( 09.07.2024 ): 1950 Age: 73 There has been approximately a 5 lb weight gain since 04/27/2024. This represents approximately a 3.9% change in weight. Weight change attributable to lifestyle changes. Vital Signs:Blood Pressure: Sitting Rt. Arm 120/78Pulse: Sitting 79 /min and RegularRespiratory Rate: 16Height 64 in or 1.6 mWeight 133 lb or 60.3 kgBMI 22.8Temperature: 97 F or 36.1 CPulse Oximetry: 98 % at rest on no oxygen Chief Complaint: Addressed in HPI Problems or conditions discussed in the HPI were the only ones reviewed during the encounter.Only social and family history addressed in the HPI were reviewed during this encounter. Attendant(s): NoneConstitutional and Systemic Symptoms:none Medication Reconciliation: from medication list. Annaafeoifo36-97-3598: MRI of the brain bilateral periventricular white matter hyperdensity. No focal enhancing parenchymal lesions noted. Multiple level disc and joint disease involving the cervical spine line below.03-07-2024: MRI of the cervical spine C2-C3 no disc bulging or foraminal stenosis. C3-C4 small central herniation no foraminal narrowing or canal narrowing. C4-C5 there is no disc bulge no foraminal narrowing. C5-C6 there central disc herniation bilateral facet hypertrophy is noted with moderate to severe left and mild moderate right foraminal narrowing. Anterior cord surface flattening seen. C6-C7 there is diffuse bulge bilateral facet in hypertrophy with mild central canal stenosis. C7-T1 no significant disc bulge. Focal well-circumscribed hypertense enhancing lesion seen within the C6 vertebral body could represent a atypical vertebral body hemangioma. Osseous metastases can not be totally ruled out. Recommend further evaluation CT scan of the cervical spine and whole-body bone [id number]: MRI of the thoracic spine T1 through T5 no disc bulge or foraminal narrowing. T5-T6 small central disc herniation no foraminal canal stenosis is seen T6- T7 small paracentral disc herniation no foraminal narrowing. T10-T11 mild diffuse bulge no facet hypertrophy no canal stenosis. T11-T12 no disc bulge. No foraminal narrowing. Some hypertrophy of the ligamentum flavum. 06-30-2024: Ultrasound of the thyroid shows no significant thyroid nodules. No recommendations on any follow-up for current anatomy. History of Present Illness #1. Type I Hypercholesterolaemia: Currently stopped medication against advice. No interval complaints of any muscle pain or arthralgia. No significant liver changes with medications. Last lipid panel: fair control. Therapy reviewed regarding treatment of cholesterol management and include diet. #2. osteoporosis. No new complaints of any additional back,hip or other musculoskeletal complaints related to the osteoporosis. No hx of any recent trauma. Currently taking OsCal-D and Fosamax. Has has had a recent DEXA scan done within the last year. The FRAX Score for Hip Fracture is NA hx osteoporosis FRAX score for major fractures NA hx of osteoporosis #3. Follow-up for thyroid nodule clinically stable. Has had a ultrasound which was negative. Does not need any further follow-up with regards to this.: #4. Hx of depression currently stable. Pharmacological treatment : Lexapro . Suicidal thoughts or ideas: None Loss of appetite: No Sleep Disturbance: No Hallucinations: No Is currently seeing no one. Discussed possibility of decreasing and weaning off medication. Feels that current regimen is working fine and wishes not to change the current treatment regimen. No contraindication to continue current therapy.#5. Sjogren syndrome clinically stable currently taking Plaquenil doing well. Does get her eyes checked on a regular basis. Active Medication ListAspirin 81 MG TABLET Once DailyZyrtec 10 MG TABLET, FILM COATED Once DailyMontelukast 10 MG TABLET Once DailyFish Oil Caps DailyPlaquenil 200 MG (TABLET - ORAL) Once DailySaw [place] 1200 MG Once DailyMagox 500 MG Once DailyLexapro 20 MG (TABLET - ORAL) Once DailyMetamucil DailyOs-nieves D Twice A DayFosamax 35 MG (TABLET - ORAL) Weekly Adverse Drug Reactions ReviewedLatex Rash And Trouble BreathingIvp Dye Rash Vaccination and Immunization(X) 2020-08 INFLUENZA Surgical [id number] Rt. [id number] Lumbar [id number] Lumbar Stxebcrnbpz3178-45 Lumbar Ypruyzldtag6739-84 Partial Semqgbakjwc5530-07 Exp. 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 Apparently recently found out about two other half sisters and possible hx of some spastic paralysis Pasquale Guadarrama MD [address] [facility] [address], [place], [address], [facility] 09/07/2024 11:29:59 OBGyn Episode No OBEpisode recorded.
--- OUTSIDE RECORDS SUMMARY | 2024-12-16 07:45 | XMS_ITS | Clinical Summary ---
Author Organization [facility] Address [address] [place] [address] Care Team Providers Care Magnetic Grinder Operator Name Role Phone Laurie Mason MD Unavailable [phone] Pasquale Guadarrama MD Primary Care Provider Allergies Active Allergy Reactions Criticality Noted Date Comments Latex Anaphylaxis High 05/01/2019 Medications escitalopram (LEXAPRO) 20 mg tablet Take 1 tablet (20 mg total) by mouth daily 8 Active cetirizine (ZyrTEC) 10 mg tablet Take 1 tablet (10 mg total) by mouth daily Active alendronate (FOSAMAX) 35 mg tablet Take 35 mg by mouth once a week in early AM 6 9 Active montelukast (SINGULAIR) 10 mg tablet Take 1 tablet (10 mg total) by mouth daily 0 9 Active fluticasone propionate (FLONASE ALLERGY RELIEF NASL) Administer 50 mcg into affected nostril(s) daily 7 Active psyllium 0.4 gram capsule Take by mouth 2 (two) times a day 6 Active calcium carbonate-vitam in D3 1,250 mg (500 mg elemental)-600 unit tablet Take 1 tablet by mouth 2 (two) times a day Active biotin 10,000 mcg capsule Take 1 capsule (10,000 mcg total) by mouth daily Active clobetasol (TEMOVATE) 0.05 % gel Apply topically 2 (two) times a day 9 Active meloxicam (MOBIC) 15 mg tablet Take by mouth as needed Active omega-3 fatty acids-fish oil 300-1,000 mg capsule Take 2 capsules (2,000 mg total) by mouth daily Active Active Problems No known active problems Immunizations Immunization Administration Dates Next Due Influenza, Quadrivalent, Hig h Dose, Preservative Free, Intrr 05/10/2020 Surgical History Surgery Date Site/Laterality Comments HYSTERECTOMY 08/09/2002 - 08/08/2003 total OOPHORECTOMY BACK SURGERY [id number] L4-L5 x 4 BREAST LUMPECTOMY 09/09/2014 - 10/06/2014 Right CARPAL TUNNEL RELEASE Bilateral CHOLECYSTECTOMY 08/09/1980 - 08/08/1981 x 2 MASTECTOMY Right 2015 Medical History Medical History Date Comments Breast cancer (HCC) Osteopenia after menopause Seizures (HCC) as a child Social History Tobacco Use Types Packs/Day Years Used Date Smoking Tobacco: Never Assessed Comments No Sex and Gender Information Value Date Recorded Sex Assigned at Not on file Legal Sex Female 11:17 AM CDT Gender Identity Not on file Sexual Orientation Not on file Obstetrics History Last Filed Vital Signs Vital Sign Reading Time Taken Comments Blood Pressure 136/51 04/28/2024 10:02 AM CDT Pulse 72 04/28/2024 10:02 AM CDT Temperature 36.3 C (97.4 F) 04/28/2024 10:02 AM CDT Respiratory Rate 18 04/28/2024 10:02 AM CDT Oxygen Saturation 100% 04/28/2024 10:02 AM CDT Inhaled Oxygen Concentration - - Weight 58.7 kg (129 lb 6.4 oz) 04/28/2024 10:02 AM CDT Height 163.8 cm (5' 4.5 ) 12/05/2021 9:25 AM CDT Body Mass Index 21.87 12/05/2021 9:25 AM CDT Plan of Treatment Health Maintenance Due Date Last Done Comments Colon Cancer Screening-Colonoscopy 1950 Depression Screening 1950 Fall Risk Assessment 1950 Hepatitis C Screening 1950 DTaP/Tdap/Td Vaccine (1 - Tdap) 1961 Hepatitis B Screening 1968 Zoster Vaccine (1 of 2) 2000 Well Visit 65+ 12/22/2015 Pneumococcal vaccine 65+ (2 of 2 - PPSV23) 07/21/2017 07/21/2016 Osteoporosis Screening-Bone Density Scan 05/11/2021 05/11/2019 Breast Cancer Screening-Mammogram 12/05/2022 12/05/2021, 06/19/2020, 05/11/2019 Influenza Vaccine (#1) 2024 0, 05/22/2019, 06/25/2017, Additional history exists Procedures Procedure Name Priority Date/Time Associated Diagnosis Comments SCREENING MAMMOGRAM LEFT W ROCKY UNILATERAL ONLY Schedule Routine, Read Routine (OP Routine) 12/05/2021 9:29 AM CDT Malignant neoplasm of right female breast, unspecified estrogen receptor status, unspecified site of breast (HCC) DEXA AXIAL SKELETON BONE DENSITY 1 OR MORE SITES Schedule Routine, Read Routine (OP Routine) 05/11/2019 2:49 PM CDT Malignant neoplasm of right breast in female, estrogen receptor negative, unspecified site of breast (HCC) from Last 3 Months or Most Recently Relevant to Health Maintenance Results * Screening Mammogram Left W [place] Unilateral Only (12/05/2021 9:29 AM CDT) Anatomical Region Laterality Modality Breast Left Mammography 12/05/2021 12:1 4 PM CDT Impressions 12/05/2021 12:14 PM CDT There is no mammographic evidence of malignancy. A 1 year screening mammogram is recommended. BI-RADS: 1 - Negative. The patient has been or will be contacted. The patient will be entered into a reminder system with a target due date of 1 year for her next mammogram. Electronically signed by: Young Cheng M.D. Narrative 12/05/2021 12:14 PM CDT EXAMINATION: SCREENING MAMMOGRAM LEFT W ROCKY UNILATERAL ONLY ORDERING HEALTHCARE PROVIDER: SELF SCREENING MAMMOGRAM HISTORY: Routine screening mammography. History of breast cancer status post right mastectomy in 2014 COMPARISON: 06/19/2020, 05/11/2019 TECHNIQUE: CC and MLO views of the left breast were obtained with digital technique using breast tomosynthesis with C view. Computer aided detection was utilized. FINDINGS: DENSITY: The tissue of the left breast is heterogeneously dense, which may obscure small masses. BREASTS: There are no suspicious masses, suspicious calcifications, or other suspicious findings in the left breast. There has been no suspicious interval change. us Self Screening Mammogram IMG MAMMO PROCEDURES Fi nal Result * Dexa Axial Skeleton Bone Density 1 or 2 Site (05/11/2019 2:49 PM CDT) Anatomical Region Laterality Modality Body N/A Digital Radiogra phy 05/11/2019 3:33 PM CDT Impressions 05/11/2019 3:34 PM CDT Low bone mass (osteopenia) which depending on the clinical circumstances may result in a moderate increased risk of fragility fracture. If followup is to be done, for technical reasons, it should be performed on this same machine. Electronically signed by: Mayur Peña M.D. Narrative 05/11/2019 3:34 PM CDT EXAM: Bone mineral density [facility]. HISTORY: Breast cancer. DXA BMD was done at [facility] on a Hologic [place] CI. Precision testing at this site has resulted in a least significant change of: Lumbar spine 0.035 g/sq cm Hip 0.025 g/sq cm BMD L1 and L2 is 1.185 g/sq cm corresponding to a T score of 1.9. L3 and L4 were not included in the interpretation due to endplate sclerosis and postsurgical changes. BMD left femoral neck is 0.646 g/sq cm corresponding to a T score of -1.8. BMD total left hip is 0.845 g/sq cm corresponding to a T score of -0.8. COMPARISON: None. Procedure Note Mayur Peña MD - 05/11/2019 EXAM: Bone mineral density [facility]. HISTORY: Breast cancer. DXA BMD was done at [facility] on a Hologic Discovery CI. Precision testing at this site has resulted in a least significant change of: Lumbar spine 0.035 g/sq cm Hip 0.025 g/sq cm BMD L1 and L2 is 1.185 g/sq cm corresponding to a T score of 1.9. L3 and L4 were not included in the interpretation due to endplate sclerosis and postsurgical changes. BMD left femoral neck is 0.646 g/sq cm corresponding to a T score of -1.8. BMD total left hip is 0.845 g/sq cm corresponding to a T score of -0.8. COMPARISON: None. IMPRESSION: Low bone mass (osteopenia) which depending on the clinical circumstances may result in a moderate increased risk of fragility fracture. If followup is to be done, for technical reasons, it should be performed on this same machine. Electronically signed by: Mayur Peña M.D. Laurie Mason MD IM DXA PROCEDURES Final Result from Last 3 Months or Most Recently Relevant to Health Maintenance Insurance [employer] MEDICARE HMO [facility] HMO REF [facility] MEDICARE HMO Care Teams Magnetic Grinder Operator Relationship Specialty Start Date End Date Pasquale Guadarrama MD [address] [facility] [address] [place] [address] PCP - General 05/01/19 Laurie Mason MD Medical Oncologist/Serger Internal Medicine 04/19/19
--- OUTSIDE RECORDS SUMMARY | 2024-12-16 07:45 | XMS_ITS | Referral Summary ---
Author Organization [facility] Address [address] [place] [address] Care Team Providers Care Raw Finish Mill Operator Name Role Phone Laurie Mason MD Unavailable [phone] Pasquale Guadarrama MD Primary Care Provider Allergies [...] Hig h Dose, Preservative Free, Intrr 05/10/2020 Social History Tobacco Use Types Packs/Day Years Used Date Smoking Tobacco: Never Assessed Comments No Sex and Gender Information Value Date Recorded Sex Assigned at Not on file Legal Sex Female 11:17 AM CDT Gender Identity Not on file Sexual Orientation Not on file Last Filed Vital Signs Vital Sign Reading [...] 12/05/2021 9:25 AM CDT Plan of Treatment Not on file Procedures Procedure Name Priority Date/Time Associated Diagnosis [...] 3:34 PM CDT EXAM: Bone mineral density [facility]. HISTORY: Breast cancer. DXA BMD was done at [facility] on a [place] CI. Precision testing at this site has [...] MD - 05/11/2019 EXAM: Bone mineral density [facility]. HISTORY: Breast cancer. DXA BMD was done at [facility] on a [place] CI. Precision testing at this site has [...] by: Mayur Peña M.D. Laurie Mason MD IMG DXA PROCEDURES Final Result from Last 3 Months or Most Recently Relevant to Health Maintenance Insurance [employer] MEDICARE [address]MO [address] [place], [place] [id number] HMO REF [facility] MEDICARE HMO [facility] MEDICARE HMO Care Teams Raw Finish Mill Operator Relationship Specialty Start Date End Date Pasquale Guadarrama MD [address] [facility] [address] [place] [address] PCP - General 05/01/19 Laurie Mason MD Medical Oncologist/Ediphone Operator Internal Medicine 04/19/19
--- OUTSIDE RECORDS SUMMARY | 2024-12-16 07:45 | XMS_ITS | Clinical Summary ---
Author Organization [facility] Address [address] [facility] [place] [address] Care Team Providers Care Steamfitter Apprentice Name Role Phone Pasquale Guadarrama MD Primary Care Provider [phone] Pasquale Guadarrama MD Unavailable [phone] Pasquale Guadarrama MD Unavailable [phone] Willard Tsang MD Unavailable Source Comments [facility],non-owned Affiliates and Associated Physician Practices is amultiple site organization consisting of ambulatory clinics and hospital sitesin [place], [place], [place] and [place]. This disclosure is being madepursuant to the Care Everywhere program and may not contain all information available regarding this patient. Last updated 18.[facility] Allergies Active Allergy Reactions Criticality Noted Date Comments Adhesive Sensitivity Itching 08/11/2021 Caffeine GI Discomfort 12/16/2022 Contrast-Iodinated Agents For Ct/Other Swelling 04/03/2024 Pt reports red, raised, swollen area to the right side of her neck after receiving contrast for CT. Latex 09/03/2010 Latex Anaphylaxis,Rash High 05/01/2019 Other 09/03/2010 dermabond Medications * Be aware that medications may not be up to date on this document. Alwaysverify current medications with the patient. zolpidem (AMBIEN) 10 MG tablet at bedtime. Active LORazepam (ATIVAN) 0.5 MG tablet as needed. Active ciclesonide (OMNARIS) 50 MCG/ACT SUSP as directed. Acti ve sertraline (ZOLOFT) 100 MG tablet as directed. Active simvastatin (ZOCOR) 40 MG tablet daily. Active Calcium Carbonate-Vitami n D (CALCIUM-D PO) Active hydrocodone-acet aminophen (NORCO) 5-325 MG tablet Take 1 Tab by mouth as directed. 60 Tab 1 1 Active Additional Information Patient not taking.Reported on 05/03/2024 diclofenac sodium (VOLTAREN) 50 MG tablet Take 1 Tab by mouth 2 times daily. 60 Tab 4 1 Active Additional Information Patient not taking.Reported on 12/16/2022 escitalopram (LEXAPRO) 20 MG tablet Take 1 (one) tablet by mouth once daily Active cetirizine (ZYRTEC) 10 MG tablet Take 1 (one) tablet by mouth once daily Active alendronate (FOSAMAX) 35 MG tablet Take 35 mg by mouth every 7 days Active Biotin 10 MG Take 1 capsule by mouth once daily Active Calcium Carb-Cholecalcif teri 500-600 MG-UNIT Take 1 tablet by mouth 2 times daily Active montelukast (SINGULAIR) 10 MG tablet Take 1 (one) tablet by mouth once daily Active meloxicam (MOBIC) 15 MG tablet Take 15 mg by mouth once daily Active Psyllium (METAMUCIL PO) Take by mouth 2 times daily Active DIPHENOXYLATE-AT ROPINE PO Take 2 mg by mouth once daily as needed Active SPIRONOLACTONE PO Take 75 mg by mouth once daily Active Clindamycin Phos-Benzoyl Perox (ONEXTON EX) by Apply externally route once daily Active minoxidil (ROGAINE) 2 % solution Apply to affected area once daily Active Zn-Pyg Exao-Pgzsly-Wcp Palmet (SAW PALMETTO COMPLEX PO) Take 1,200 mg by mouth once daily Active [place]-3 Fatty Acids (fish oil) 1000 MG capsule Take 2 (two) capsules by mouth once daily Active Aspirin 81 MG CAPS Active hydroxychloroqui ne (Plaquenil) 200 MG tabletIndication s:Sjogren's syndrome, with unspecified organ involvement (HCC) TAKE 1 TABLET DAILY 90 tablet 5 Active Active Problems Problem Noted Date Diagnosed Date Abnormality of gait due to impairment of balance 02/01/2024 Myelopathy 02/01/2024 Neuropathy 02/01/2024 Sjogren's syndrome 11/10/2021 Degeneration of lumbar or lumbosacral interverte bral disc 09/03/2010 Encounters Date Type Department Care Team Description 12/15/2024 Telephone [facility] - Rheumatology [address] [place] [address] Libia Gardner MD Record Request 12/15/2024 Telephone [facility] - Rheumatology [address], [address] [place] [address] Libia Gardner MD Record Request 12/11/2024 Telephone [facility] Neurosciences [address] [place] [address] Willard Tsang MD Question 10/22/2024 Refill [facility] - Rheumatology [address], [address] [place] [address] Libia Gardner MD Refill Request from Last 3 Months Family History Medical History Relation Name Comments Other Brother 1 CAD (Coronary Artery Disease) Father Cancer - Colon Sister 1 Relation Name Status Comments Brother 1 Brother 2 Alive Brother 3 Alive Father Mother Sister 1 Sister 2 Alive Sister 3 Alive Social History Tobacco Use Types Packs/Day Years Used Date Smoking Tobacco: Never Smokeless Tobacco: Never Tobacco Cessation:Counseling Given: Not Answered Alcohol Use Standard Drinks/Week Comments No 0 (1 standard drink = 0.6 oz pur e alcohol) Rarely Comments No Sex and Gender Information Value Date Recorded Sex Assigned at Not on file Legal Sex Female 9:45 AM PARASITOLOGIST Gender Identity Not on file Sexual Orientation Not on file Last Filed Vital Signs Vital Sign Reading Time Taken Comments Blood Pressure 122/74 05/03/2024 8:59 AM CDT Pulse 72 05/03/2024 8:59 AM CDT Temperature 36.2 C (97.2 F) 05/03/2024 8:59 AM CDT Respiratory Rate 17 05/03/2024 8:59 AM CDT Oxygen Saturation 98% 05/03/2024 8:59 AM CDT Inhaled Oxygen Concentration - - Weight 59 kg (130 lb) 05/03/2024 8:59 AM CDT Height 162.6 cm (5' 4 ) 05/03/2024 8:59 AM CDT Body Mass Index 22.31 05/03/2024 8:59 AM CDT Plan of Treatment Upcoming Encounters Date Type Department Care Team (Late st Contact Info) Description 12/25/2024 9:20 AM CDT Office Visit [facility] - Rheumatology [address], [address] [place] [address] Libia Gardner MD [address] [place] [address] Health Maintenance Due Date Last Done Comments COLON MONITORING 1950 COLONOSCOPY - COLON CA SCREENING 1950 CT COLONOGRAPHY - COLON CA SCREENING 1950 FIT - COLON CA SCREENING 1950 FLEX SIG - COLON CA SCREENING 1950 HEPATITIS C SCREENING 12/16/1968 DTAP/TDAP/TD VACCINES (1 - Tdap) 1969 PNEUMOCOCCAL VACCINE 50+ (1 of 1 - PCV) 2000 ZOSTER VACCINE (1 of 2) 2000 Respiratory Syncytial Virus (RSV) Vaccine Pt: or over 60 yrs (1 - Risk 60-74 years 1-dose series) 2010 MAMMOGRAM 12/06/2023 12/05/2021, 11/08, 06/19/2020, Additional history exists COVID-19 VACCINE ( - season) 2024 DEPRESSION SCREENING 08/09/2024 MEDICARE AWV CALENDAR YEAR 2024 INFLUENZA VACCINE (Season Ended) 2025 COLOGUARD (AGES 45-75) - COLON CA SCREENING 03/10/2026 03/10/2023, 03/06/2020 Colorectal Cancer Screening 03/10/2026 BONE DENSITY TESTING Completed 05/11/2019 HEPATITIS B VACCINE Aged Out No longe r eligible based on patient's age to complete this topic HIB VACCINE Aged Out No longer eligi ble based on patient's age to complete this topic HPV VACCINE Aged Out No longer eligi ble based on patient's age to complete this topic MENINGOCOCCAL (Group B) VACCINE SHARED DECISION-MAKING Aged Out No longer eligible based on patient's age to complete this topic MENINGOCOCCAL GROUPS A/C/Y/W VACCINE Aged Out No longer eligible based on patient's age to complete this topic Insurance [employer] Care Teams Steamfitter Apprentice Relationship Specialty Start Date End Date Pasquale Guadarrama MD [address] [place] [phone] PCP - General Internal Medicine 08/06/21 Pasquale Guadarrama MD [address] [place] [phone] 08/06/21 Pasquale Guadarrama MD [address] [place] [phone] Internal Medicine 09/03/10 Willard Tsang MD [facility] [facility] [address] [id number] Neurology 02/22/24
--- OUTSIDE RECORDS SUMMARY | 2024-12-16 07:45 | XMS_ITS | Encounter Summary ---
Author Organization [facility] Address [address] [facility] [place] [address] Care Team Providers Care Licensed Loan Officer Name Role Phone Pasquale Guadarrama MD Primary Care Provider [phone] Pasquale Guadarrama MD Unavailable [phone] Pasquale Guadarrama MD Unavailable [phone] Willard Tsang MD Unavailable Reason for Visit * Reason Onset Date Comments Record Request 12/15/2024 Encounter Details Date Type Department Care Team (Late Contact Info) Description 12/15/2024 Telephone [facility] Rheumatology [address] [facility], [address] [place] [address] Libia Gardner MD [address] [place] [address] Record Request Social History Tobacco Use Types Packs/Day Years Used Date Smoking Tobacco: Never Smokeless Tobacco: Never Alcohol Use Standard Drinks/Week Comments No 0 (1 standard drink = 0.6 oz pur e alcohol) Rarely Comments No Sex and Gender Information Value Date Recorded Sex Assigned at Not on file Legal Sex Female 9:45 AM CONVEYOR ATTENDANT Gender Identity Not on file Sexual Orientation Not on file documented as of this encounter Plan of Treatment Upcoming Encounters Date Type Department Care Team (Late Contact Info) Description 12/25/2024 9:20 AM CDT Office Visit [facility] Rheumatology [address] [facility], [address] [place] [address] Libia Gardner MD [address] [place] [phone] documented as of this encounter Visit Diagnoses Not on filedocumented in this encounter Care Teams Licensed Loan Officer Relationship Specialty Start Date End Date Pasquale Guadarrama MD [address] [place] [phone] PCP - General Internal Medicine 08/06/21 Pasquale Guadarrama MD [address] [place] [phone] 08/06/21 Pasquale Guadarrama MD [address] [place] [phone] Internal Medicine 09/03/10 Willard Tsang MD [address] [place] [address] [place] [phone] Neurology 02/22/24 documented as of this encounter
--- OUTSIDE RECORDS SUMMARY | 2024-12-16 07:45 | XMS_ITS | Continuity of Care Document ---
Author Organization [facility] Address [address] [place] [address] utive [facility] [address] [place] [address] Phone Care Team Providers Care Hand Cutter Name Role Phone [facility] [employer] Unavailable Unavail able Shayy Myers Unavailable Unavailable Advance Directives Directive Yes / No Effective Date File Name No Information Encounters Encounter Description Practice Location Reason(s) For Visit Diagnoses Date Provider Providers Copied on Encounter [facility], [id number] [place] [address] [address], [place], [place], [id number], [place] tel:[phone] [facility] No Information Mar-0 5-200 2 [facility] n. [address] [facility], [facility] [address], [place], [place], [id number] , [place]. tel:[phone] Referring Provider: Yamil Oconnell, [address] [facility] [address], [place], [address]. tel:[phone] molina Provider: Shayy Myers, [address] [place] [address], [address]. tel:[phone] Family History Family Member Type Diagnosis Age At Onset No Information Payers Payer name Insurance type Covered democrat ID Authoriza tion(s) No Information Social History Type Description Quantity Date Captured Comments Sex Female Smoking Status No Information Chief Complaint And Reason For Visit No Information Reason For Referral Reason For Referral No Information History Of Present Illness Encounter Date Complaint History Of Prese nt Illness No Information Functional Status Date Functional Assessmen t No Information Instructions Date Instruction Additional Infor mation No Information Assessments Type Assessment Date No Information Patient Care Teams Name Effective Dates (start - stop) Status Members No Information
[2024-12-16] MEDS: IBUPROFEN 600 MG TABLET PO (10:06)
[2024-12-16] MEDS: ACETAMINOPHEN 325 MG TABLET 650 MG PO (10:07)
[2024-12-16 10:37] VITALS: BP 141/70; PULSE 75; RESP 16; TEMP 36.4; O2SAT 98
== END 2024-12-16 10:37 | disposition home or self-care (01) ==
PROVIDERS: Emergency Provider Emergency Medicine; PCP Internal Medicine
DX: S80.02XA Contusion of left knee, initial encounter (principal); F32.A Depression, unspecified; Z85.3 Personal history of malignant neoplasm of breast; Z90.49 Acquired absence of other specified parts of digestive tract; M17.12 Unilateral primary osteoarthritis, left knee; M11.262 Other chondrocalcinosis, left knee; Z79.82 Long term (current) use of aspirin; Z79.899 Other long term (current) drug therapy; W10.9XXA Fall (on) (from) unspecified stairs and steps, initial encounter
CPT/HCPCS: 73564; 99283; A9270

== ENCOUNTER 2024-12-21 16:59 | Emergency (ER) | payer MEDICARE, SELFPAY ==
--- NOTE | ~2024-12-21 | US_ITS ---
LEFT LOWER EXTREMITY VENOUS ULTRASOUND Ordering provider: Jodi Rogers APRN History: . LEFT LEG PAIN . Comparison: None. FINDINGS: --COMMON FEMORAL: Patent and free of thrombus. Normal compressibility, phasic flow and augmentation. --PROXIMAL SUPERFICIAL FEMORAL: Patent and free of thrombus. Normal compressibility, phasic flow and augmentation. --DISTAL SUPERFICIAL FEMORAL: Patent and free of thrombus. Normal compressibility, phasic flow and au gmentation. --POPLITEAL: Patent and free of thrombus. Normal compressibility, phasic flow and augmentation. --POSTERIOR TIBIAL: Patent and free of thrombus. Normal compressibility, phasic flow and augmentation . IMPRESSION: Negative left lower extremity venous US. No deep vein thrombosis. Reviewed, dictated and finalized at location A.
--- OUTSIDE RECORDS SUMMARY | 2024-12-21 17:02 | XMS_ITS | Encounter Summary ---
Author Organization [facility] Address [address] [place] [address] Care Team Providers Care Ironing Pleater Name Role Phone Pasquale Guadarrama MD Primary Care Provider [phone] Pasquale Guadarrama MD Unavailable [phone] Pasquale Guadarrama MD Unavailable [phone] Willard Tsnag MD Unavailable Reason for Visit * Reason Onset Date Comments Record Request 12/15/2024 Encounter Details Date Type Department Care Team (Late st Contact Info) Description 12/15/2024 Telephone [facility] - Rheumatology [address], [address] [place] [address] Libia Gardner MD [address] [place] [address] Record Request Social History Tobacco Use Types Packs/Day Years Used Date Smoking Tobacco: Never Smokeless Tobacco: Never Alcohol Use Standard Drinks/Week Comments No 0 (1 standard drink = 0.6 oz pur e alcohol) Rarely Comments No Sex and Gender Information Value Date Recorded Sex Assigned at Not on file Legal Sex Female 9:45 AM GRIP Gender Identity Not on file Sexual Orientation Not on file documented as of this encounter Miscellaneous Notes * Telephone Encounter - John Ferrari RN - 2024 2:24 PM CDT Per Director MARIIA Glover I found a mailing address on the the initial cover sheet they sent. [address] [facility] [address] [place] [id number] . I called the patient and provided the above update but she informed me that she had already found this information. * Telephone Encounter - John Ferrari, RN - 12/15/2024 9:48 AM CDT Patient called to request an address that she could mail a record request to [facility]. I advised that I was not aware of such an address, but that I would reach out to the office management and she could mail the forms to our office for faxing to [facility] for records if needed. Patient verbalized understanding and had no further questions or concerns at this time. documented in this encounter Plan of Treatment Not on file documented as of this encounter Visit Diagnoses Not on filedocumented in this encounter Care Teams Ironing Pleater Relationship Specialty Start Date End Date Pasquale Guadarrama MD [address] [place] [phone] PCP - General Internal Medicine 08/06/21 Pasquale Guadarrama MD [address] [place] [phone] 08/06/21 Pasquale Guadarrama MD [address] [place] [phone] Internal Medicine 09/03/10 Willard Tsang MD [facility] [address] [facility] [address] [place] [address] Neurology 02/22/24 documented as of this encounter
--- OUTSIDE RECORDS SUMMARY | 2024-12-21 17:02 | XMS_ITS | Clinical Summary ---
Author Organization [facility] Address [address] [facility] [place] [address] Care Team Providers Care Industrial Engineering Technician Name Role Phone Pasquale Guadarrama MD Primary Care Provider [phone] Pasquale Guadarrama MD Unavailable [phone] Pasquale Guadarrama MD Unavailable [phone] Willard Tsang MD Unavailable Source Comments [facility],non-owned Affiliates and Associated Physician Practices is amultiple site organization consisting of ambulatory clinics and hospital sitesin [place], [place], [place] and [place]. This disclosure is being madepursuant to the Care Everywhere program and may not contain all information available regarding this patient. Last updated 18.[facility] Allergies Active Allergy Reactions Criticality Noted Date [...] to affected area once daily Active Zn-Pyg Babx-Lezmjj-Wts Palmet (SAW PALMETTO COMPLEX PO) Take 1,200 mg by mouth once daily Active Burns Flat-3 Fatty Acids (fish oil) 1000 MG capsule [...] Encounters Date Type Department Care Team Description 12/19/2024 Telephone [facility] - Rheumatology [address], [address] [place] [address] Libia Gardner MD Update 12/15/2024 Telephone [facility] - Rheumatology [address], [address] [place] [address] Libia Gardner MD Record Request 12/15/2024 Telephone [facility] - Rheumatology [address], [address] [place] [address] Libia Gardner MD Record Request 12/11/2024 Telephone [facility] Neurosciences [address] [facility] [address] [place] [address] Willard Tsang MD Question 10/22/2024 Refill [facility] - Rheumatology [address] [facility], [address] [place] [address] Libia Gardner MD Refill Request [...] on file 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 Gender Identity Not on file Sexual Orientation [...] 05/03/2024 8:59 AM CDT Plan of Treatment Health Maintenance [...] patient's age to complete this topic Insurance [facility] Care Teams Industrial Engineering Technician Relationship Specialty Start Date End Date Pasquale Guadarrama MD [address] [phone] PCP - General Internal Medicine 08/06/21 Pasquale Guadarrama MD [address] [place] [phone] 08/06/21 Pasquale Guadarrama MD [address] [place] [phone] Internal Medicine 09/03/10 Willard Tsang MD [facility] [phone] Neurology 02/22/24
--- OUTSIDE RECORDS SUMMARY | 2024-12-21 17:02 | XMS_ITS | Encounter Summary ---
Author Organization [facility] Address [address] [facility] [place] [address] Care Team Providers Care Manager Process Name Role Phone Pasquale Guadarrama MD Primary Care Provider [phone] Pasquale Guadarrama MD Unavailable [phone] Pasquale Guadarrama MD Unavailable [phone] Willard Tsang MD Unavailable Reason for Visit * Reason Onset Date Comments Update 12/19/2024 Encounter Details Date Type Department Care Team (Late st Contact Info) Description 12/19/2024 Telephone [facility] - Rheumatology [address] [facility], [address] [place] [address] Libia Gardner MD [address] [place] [address] Update Social History Tobacco Use Types Packs/Day Years Used Date Smoking Tobacco: Never Smokeless Tobacco: Never Alcohol Use Standard Drinks/Week Comments No 0 (1 standard drink = 0.6 oz pur e alcohol) Rarely Comments No Sex and Gender Information Value Date Recorded Sex Assigned at Not on file 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 Gardner's below response. All questions and concerns addressed, patient verbalized understanding and no further questions at this time. Patient will call 911 later today as she is not getting any better and she will request further imaging be completed at the hospital and also referral to rehab or SNF. * Telephone Encounter - John Ferrari RN - 12/20/2024 9:36 AM CDT Attempted to call patient to relay the below agreement from Dr. Gardner with my previous recommendation, but unable to reach patient or LMOR at any of the numbers on file. Called x1 * Telephone Encounter - Libia Gardner MD - 12/19/2024 10:07 PM CDT Agree with going to ED to be referred to rehab or snf. She will need to be evaluated. So she may have to call 911 if unable to get assistance to go to ED. * Telephone Encounter - John Ferrari RN - 12/19/2024 10:38 AM CDT Patient called to report that she fell on 12-15-2024 and hit her knee badly. Patient was taken to [facility] later this past weekend and xrays were completed and the patient has no breaks noted.Patient was then sent home, but informed me that she cannot walk and has to move around her house by scooting. Since patient cannot get up she is cancelling the appointment with Dr. Gardner next week. Patient states she has spoken with her PCP but they cannot help her until she is seen in the office and she cannot make an appointment as stated above. Patient was further advised that if she cannot walk that she may need to call 911 to take her back to the hospital for more extensive imaging and possible consideration for alf facility. Will update Dr. Gardner as requested by patient. Please advise. documented in this encounter Plan of Treatment Not on file documented as of this encounter Visit Diagnoses Not on filedocumented in this encounter Care Teams Manager Process Relationship Specialty Start Date End Date Pasquale Guadarrama MD [address] [place] [phone] PCP - General Internal Medicine 08/06/21 Pasquale Guadarrama MD [address] [place] [phone] 08/06/21 Pasquale Guadarrama MD [address] [place] [phone] Internal Medicine 09/03/10 Willard Tsang MD [address] [phone] Neurology 02/22/24 documented as of this encounter
--- OUTSIDE RECORDS SUMMARY | 2024-12-21 17:03 | XMS_ITS | Data Portability ---
Author Organization [facility], Main Office Address [address] [place] [address] Assessment No assessment recorded. Plan of Treatment Reminders Order Date Submit Date Provider Last Modified By Organization Details Last Modified Time Details Appointments None recorded. Lab T4, free, serum 025 [facility] Outpatient Lab, [address] [place], [address], 5 05:37:14 TSH, serum or plasma 025 [facility], [address] [place], [address], 5 05:37:15 vitamin D, 25-hydrox y, total, serum 025 [facility], [address] [place], [address], 5 05:37:16 lipid panel, serum 025 [facility], [address] [place], [address], 5 05:37:10 CMP, serum or plasma 025 025 [facility], [address] [place], [address], 5 05:37:12 CBC w/ auto diff 025 025 [facility], [address] [place], [address], 5 05:37:13 lipid panel, serum 024 [facility], [address] [place], [address], 4 13:40:55 CMP, serum or plasma 024 [facility], [address] [place], [address], 4 13:41:02 CBC w/ auto diff 024 [facility], [address] [place], [address], 4 13:30:15 lipid panel, serum 024 [facility], [address] [place], [address], 4 06:26:19 CMP, serum or plasma 024 [facility], [address] [place], [address], 4 06:26:21 TSH, serum or plasma 024 [facility], [address] [place], [address], 4 06:26:24 T4, free, serum 024 [facility], [address] [place], [address], 4 06:26:23 CBC w/ auto diff 024 [facility], [address] [place], [address], 4 06:26:22 Referral None recorded. Procedures None recorded. Surgeries None recorded. Imaging None recorded. Medication Orders None recorded. Patient TargetsNo targets recorded. Patient Instructions Encounter Date Encounter Id Patient Instructions Last Modified By Organization Details Last Modified Time 08/27/2023 [id number] dementia rating scale-2* [email or web address] Not available 08/27/2023 11:51:02 alcohol misuse* Not available 08/27/2023 11:51:03 depression screening* [email or web address] Not available 08/27/2023 11:51:03 Timed Up and Go test (TUG)* Not available 08/27/2023 11:51:03 multi-dimensiona l health assessment questionnaire* [email or web address] Not available 08/27/2023 11:51:03 Personalized Hea lt [...] Negative Active diagnosis, Continue current treatment plan [email or web address] Not available 08/27/2023 11:30:34 Medicare wellnes s [...] where substitutions have occurred. Bone density scan [email or web address] Not available 08/27/2023 11:50:35 12/23/2023 [id number] Hyperlipidemia, anxiety, carcinoma of the breast call [...] recognize, using context, where substitutions have occurred. [email or web address] Not available 12/23/2023 14:42:56 03/30/2024 [id number] Drug reaction to intravenous dye. Finish out the Medrol Dosepak. Noted in his chart that she is allergic to the dye for future reference. Already has a follow-up appointment on April as instructed to keep that. Keep Appointment: [facility] 04 27 2024 10:00 AM Eber Portions of the record may have been created with voice recognition software. Occasional wrong-word or s ound-a-like substitutions may have occurred due to the inherent limitations of voice recognition software. Read the chart carefully and recognize, using context, where substitutions have occurred. [email or web address] Not available 03/30/2024 15:41:36 04/27/2024 [id number] Carcinoma of the right breast, hyperlipidemia, osteoporosis. Plan is to continue on current Rx will obtain records from [facility] for further evaluation of the back [...] recognize, using context, where substitutions have occurred. [email or web address] Not available 04/27/2024 11:20:33 09/07/2024 [id number] Follow-up hyperlipidemia, osteoporosis, thyroid nodule, depressive disorder [...] Created: Pasquale Guadarrama M.D. 09.07.2024 10:29 AM [email or web address] Not available 09/07/2024 11:29:44 Reason for Referral None Reported. Results Created Date Observation Date Name Description Value Unit Range Abnormal Flag Note LastModifiedBy Organization Detail LastModifiedTime 09/06/1909/07/2023 LIPID PANEL , STAND [place] cholesterol, total 182 mg/dL <200 normal Not Available [facility] [address] [place], [address], 09/07/2023 06:26:19 09/06/1909/07/2023 LIPID PANEL , [place]AND [place] HDL cholesterol 44 mg/dL > or = 50 low Not Available [facility] [address] [place], [address], 09/07/2023 06:26:19 09/06/1909/07/2023 LIPID PANEL , STAND [place] triglyceride s 156 mg/dL <150 high Not Available [facility] [address] [place], [address], 09/07/2023 06:26:19 09/06/19 24 09/07/2023 LIPID PANEL , [place]AND [place] LDL-choleste rol 111 mg/dL _(nieves c) high Refer ence range [...] 310(1 9): 2061- 2068 (http ://ed ucati on.[employer]. Clickability/f aq/FA Q164) Not Available [facility] [address] [place], [address], 09/07/2023 06:26:19 09/06/1909/07/2023 LIPID PANEL , [place]AND [place] chol/HDLC ratio 4.1 (calc ) <5.0 normal Not Available [facility] [id number] [place] [address], [address], 09/07/2023 06:26:19 09/06/19 24 09/07/2023 LIPID PANEL , [place]AND [place] non HDL cholesterol 138 mg/dL _(nieves c) <130 high For patie nts with diabe lui plus 1 major ASCVD risk facto r, treat ing to a non-H DL-C goal of <100 mg/dL (LDL- C of <70 mg/dL ) is consi trued a therrosa pewilber c optio n. Not Available [facility] [address] [place], [address], 09/07/2023 06:26:19 09/06/19 24 09/07/2023 COMPR EHENS BREANA METAB OLIC PANEL glucose 88 mg/dL 65-99 normal Fasti ng refer ence inter luis f Not Available [address], [address], 09/07/2023 06:26:21 09/06/19 24 09/07/2023 COMPR EHENS BREANA METAB OLIC PANEL urea nitrogen (BUN) 12 mg/dL 7-25 normal Not Available [address], [address], 09/07/2023 06:26:21 09/06/19 24 09/07/2023 COMPR EHENS BREANA METAB OLIC PANEL creatinine 0.99 mg/dL 0.60-1 .00 normal Not Available [facility] [address], [address], 09/07/2023 06:26:21 09/06/19 24 09/07/2023 COMPR EHENS BREANA METAB OLIC PANEL eGFR 61 mL/mi n/1.7 3m2 > or = 60 normal Not Available [place] [address] [place], [address], 09/07/2023 06:26:21 09/06/19 24 09/07/2023 COMPR EHENS BREANA METAB OLIC PANEL BUN/creatini ne ratio SEE NOTE: (calc ) 6-22 Not Repor bernice: BUN and Creat inine are withi n refer ence range . Not Available [address], [address], 09/07/2023 06:26:21 09/06/19 24 09/07/2023 COMPR EHENS BREANA METAB OLIC PANEL sodium 143 mmol/ L 135-14 6 normal Not Available [facility] [address], [address], 09/07/2023 06:26:21 09/06/19 24 09/07/2023 COMPR EHENS BREANA METAB OLIC PANEL potassium 4.1 mmol/ L 3.5-5. 3 normal Not Available [facility] [address], [address], 09/07/2023 06:26:21 09/06/19 24 09/07/2023 COMPR EHENS BREANA METAB OLIC PANEL chloride 105 mmol/ L 98-110 normal Not Available [address], [address], 09/07/2023 06:26:21 09/06/19 24 09/07/2023 COMPR EHENS BREANA METAB OLIC PANEL carbon dioxide 30 mmol/ L 20-32 normal Not Available [address], [address], 09/07/2023 06:26:21 09/06/19 24 09/07/2023 COMPR EHENS BREANA METAB OLIC PANEL calcium 10.3 mg/dL 8.6-10 .4 normal Not Available [address], [address], 09/07/2023 06:26:21 09/06/19 24 09/07/2023 COMPR EHENS BREANA METAB OLIC PANEL protein, total 6.9 g/dL 6.1-8. 1 normal Not Available [address], [address], 09/07/2023 06:26:21 09/06/19 24 09/07/2023 COMPR EHENS BREANA METAB OLIC PANEL albumin 4.3 g/dL 3.6-5. 1 normal Not Available [address], [address], 09/07/2023 06:26:21 09/06/19 24 09/07/2023 COMPR EHENS BREANA METAB OLIC PANEL globulin 2.6 g/dL_ (calc ) 1.9-3. 7 normal Not Available [address], [address], 09/07/2023 06:26:21 09/06/19 24 09/07/2023 COMPR EHENS BREANA METAB OLIC PANEL albumin/glob ulin ratio 1.7 (calc ) 1.0-2. 5 normal Not Available [address], [address], 09/07/2023 06:26:21 09/06/19 24 09/07/2023 COMPR EHENS BREANA METAB OLIC PANEL bilirubin, total 0.3 mg/dL 0.2-1. 2 normal Not Available [address], [address], 09/07/2023 06:26:21 09/06/19 24 09/07/2023 COMPR EHENS BREANA METAB OLIC PANEL alkaline phosphatase 82 U/L 37-153 normal Not Available [address], [address], 09/07/2023 06:26:21 09/06/19 24 09/07/2023 COMPR EHENS BREANA METAB OLIC PANEL AST 24 U/L 10-35 normal Not Available [address], [address], 09/07/2023 06:26:21 09/06/19 24 09/07/2023 COMPR EHENS BREANA METAB OLIC PANEL ALT 7 U/L 6-29 normal Not Available [address], [address], 09/07/2023 06:26:21 09/06/19 24 09/07/2023 CBC (INCL UDES DIFF/ PLT) white blood cell count 4.5 thous and/u L 3.8-10 .8 normal Not Available [address], [address], 09/07/2023 06:26:22 09/06/19 24 09/07/2023 CBC (INCL UDES DIFF/ PLT) red blood cell count 4.41 pedro on/uL 3.80-5 .10 normal Not Available [address] [place], [address], 09/07/2023 06:26:22 09/06/19 24 09/07/2023 CBC (INCL UDES DIFF/ PLT) hemoglobin 13.5 g/dL 11.7-1 5.5 normal Not Available [address], [address], 09/07/2023 06:26:22 09/06/19 24 09/07/2023 CBC (INCL UDES DIFF/ PLT) hematocrit 40.6 % 35.0-4 5.0 normal Not Available [facility] [address], [address], 09/07/2023 06:26:22 09/06/19 24 09/07/2023 CBC (INCL UDES DIFF/ PLT) MCV 92.1 fL 80.0-1 00.0 normal Not Available [address], [address], 09/07/2023 06:26:22 09/06/19 24 09/07/2023 CBC (INCL UDES DIFF/ PLT) MCH 30.6 pg 27.0-3 3.0 normal Not Available [address], [address], 09/07/2023 06:26:22 09/06/19 24 09/07/2023 CBC (INCL UDES DIFF/ PLT) MCHC 33.3 g/dL 32.0-3 6.0 normal Not Available [address], [address], 09/07/2023 06:26:22 09/06/19 24 09/07/2023 CBC (INCL UDES DIFF/ PLT) RDW 13.0 % 11.0-1 5.0 normal Not Available [address], [address], 09/07/2023 06:26:22 09/06/19 24 09/07/2023 CBC (INCL UDES DIFF/ PLT) platelet count 293 thous and/u L 140-40 0 normal Not Available [address], [address], 09/07/2023 06:26:22 09/06/19 24 09/07/2023 CBC (INCL UDES DIFF/ PLT) MPV 10.8 fL 7.5-12 .5 normal Not Available [address], [address], 09/07/2023 06:26:22 09/06/19 24 09/07/2023 CBC (INCL UDES DIFF/ PLT) absolute neutrophils 2358 cells /uL 1500-7 800 normal Not Available [address], [address], 09/07/2023 06:26:22 09/06/19 24 09/07/2023 CBC (INCL UDES DIFF/ PLT) absolute lymphocytes 1598 cells /uL 850-39 00 normal Not Available [address], [address], 09/07/2023 06:26:22 09/06/19 24 09/07/2023 CBC (INCL UDES DIFF/ PLT) absolute monocytes 387 cells /uL 200-95 0 normal Not Available [address], [address], 09/07/2023 06:26:22 09/06/19 24 09/07/2023 CBC (INCL UDES DIFF/ PLT) absolute eosinophils 99 cells /uL 15-500 normal Not Available [address], [address], 09/07/2023 06:26:22 09/06/19 24 09/07/2023 CBC (INCL UDES DIFF/ PLT) absolute basophils 59 cells /uL 0-200 normal Not Available [address], [address], 09/07/2023 06:26:22 09/06/19 24 09/07/2023 CBC (INCL UDES DIFF/ PLT) neutrophils 52.4 % normal Not Available [facility] [address], [address], 09/07/2023 06:26:22 09/06/19 24 09/07/2023 CBC (INCL UDES DIFF/ PLT) lymphocytes 35.5 % normal Not Available [facility] [address], [address], 09/07/2023 06:26:22 09/06/19 24 09/07/2023 CBC (INCL UDES DIFF/ PLT) monocytes 8.6 % normal Not Available [facility] [address], [address], 09/07/2023 06:26:22 09/06/19 24 09/07/2023 CBC (INCL UDES DIFF/ PLT) eosinophils 2.2 % normal Not Available [facility] [address], [address], 09/07/2023 06:26:22 09/06/19 24 09/07/2023 CBC (INCL UDES DIFF/ PLT) basophils 1.3 % normal Not Available [facility] [address], [address], 09/07/2023 06:26:22 09/06/19 24 09/07/2023 T4, FREE T4, free 0.9 NG/dL 0.8-1. 8 normal Not Available [facility] [address], [address], 09/07/2023 06:26:23 09/06/19 24 09/07/2023 TSH TSH 5.91 mIU/L 0.40-4 .50 high Not Available [facility] [address], [address], 09/07/2023 06:26:24 04/27/20 24 04/27/2024 CBC/C OMPLE TE BLD COUNT W/DIF F white blood cells 5.2 x10'3 /uL 4.2-10 .8 Not Available [facility] (Lab) [address] [place], [address], 04/27/2024 13:30:15 04/27/20 24 04/27/2024 CBC/C OMPLE TE BLD COUNT W/DIF F red blood cells 4.33 x10'6 /uL 3.80-5 .20 Not Available [facility] (Lab) [address] [place], [address], 04/27/2024 13:30:15 04/27/20 24 04/27/2024 CBC/C OMPLE TE BLD COUNT W/DIF F hemoglobin 13.2 g/dL 12.0-1 5.6 Not Available [facility] (Lab) [address] [place], [address], 04/27/2024 13:30:15 04/27/20 24 04/27/2024 CBC/C OMPLE TE BLD COUNT W/DIF F hematocrit 41.2 % 35.7-4 5.7 Not Available [facility] (Lab) [address] [place], [address], 04/27/2024 13:30:15 04/27/20 24 04/27/2024 CBC/C OMPLE TE BLD COUNT W/DIF F mean red cell volume 95.2 fL 82.0-9 9.0 Not Available [facility] (Lab) [address] [place], [address], 04/27/2024 13:30:15 04/27/20 24 04/27/2024 CBC/C OMPLE TE BLD COUNT W/DIF F mean red cell hemoglobin 30.5 pg 27.0-3 3.0 Not Available [facility] (Lab) [address] [place], [address], 04/27/2024 13:30:15 04/27/20 24 04/27/2024 CBC/C OMPLE TE BLD COUNT W/DIF F mean RBC HGB concentratio n 32.0 g/dL 31.0-3 6.0 Not Available [facility] (Lab) [address] [place], [address], 04/27/2024 13:30:15 04/27/20 24 04/27/2024 CBC/C OMPLE TE BLD COUNT W/DIF F red cell distribution width 13.1 % 11.8-1 5.5 Not Available [facility] (Lab) [address] [place], [address], 04/27/2024 13:30:15 04/27/20 24 04/27/2024 CBC/C OMPLE TE BLD COUNT W/DIF F platelets 285 x10'3 /uL 150-40 0 Not Available [facility] (Lab) [address] [place], [address], 04/27/2024 13:30:15 04/27/20 24 04/27/2024 CBC/C OMPLE TE BLD COUNT W/DIF F mean platelet volume 9.9 fL 9.0-12 .4 Not Available [facility] (Lab) [address] [place], [address], 04/27/2024 13:30:15 04/27/20 24 04/27/2024 CBC/C OMPLE TE BLD COUNT W/DIF F neutrophils 58.0 % 39.0-7 2.0 Not Available [facility] (Lab) [address] [place], [address], 04/27/2024 13:30:15 04/27/20 24 04/27/2024 CBC/C OMPLE TE BLD COUNT W/DIF F lymphocytes 27.3 % 16.0-4 7.0 Not Available [facility] (Lab) [address] [place], [address], 04/27/2024 13:30:15 04/27/20 24 04/27/2024 CBC/C OMPLE TE BLD COUNT W/DIF F monocytes 11.4 % 5.0-12 .0 Not Available [facility] (Lab) [address] [place], [address], 04/27/2024 13:30:15 04/27/20 24 04/27/2024 CBC/C OMPLE TE BLD COUNT W/DIF F eosinophils 1.9 % 1.0-7. 0 Not Available [facility] (Lab) [address] [place], [address], 04/27/2024 13:30:15 04/27/20 24 04/27/2024 CBC/C OMPLE TE BLD COUNT W/DIF F basophils 1.0 % 0.0-2. 0 Not Available [facility] (Lab) [address] [place], [address], 04/27/2024 13:30:15 04/27/20 24 04/27/2024 CBC/C OMPLE TE BLD COUNT W/DIF F immature granulocytes 0.4 % 0.00-0 .50 Not Available [facility] (Lab) [address] [place], [address], 04/27/2024 13:30:15 04/27/20 24 04/27/2024 CBC/C OMPLE TE BLD COUNT W/DIF F neutrophils, absolute count 2.99 x10'3 /uL 1.5-8. 0 Not Available [facility] (Lab) [address] [place], [address], 04/27/2024 13:30:15 04/27/20 24 04/27/2024 CBC/C OMPLE TE BLD COUNT W/DIF F lymphocytes, absolute count 1.41 x10'3 /uL 1.07-3 .43 Not Available [facility] (Lab) [address] [place], [address], 04/27/2024 13:30:15 04/27/20 24 04/27/2024 CBC/C OMPLE TE BLD COUNT W/DIF F monocytes, absolute count 0.59 x10'3 /uL 0.29-0 .99 Not Available [facility] (Lab) [address] [place], [address], 04/27/2024 13:30:15 04/27/20 24 04/27/2024 CBC/C OMPLE TE BLD COUNT W/DIF F eosinophils, absolute count 0.10 x10'3 /uL 0.02-0 .53 Not Available [facility] (Lab) [address] [place], [address], 04/27/2024 13:30:15 04/27/20 24 04/27/2024 CBC/C OMPLE TE BLD COUNT W/DIF F basophils, absolute count 0.05 x10'3 /uL 0.01-0 .08 Not Available [facility] (Lab) [address] [place], [address], 04/27/2024 13:30:15 04/27/20 24 04/27/2024 CBC/C OMPLE TE BLD COUNT W/DIF F immature granulocytes ,absolute 0.02 x10'3 /uL 0.00-0 .05 Not Available [facility] (Lab) [address] [place], [address], 04/27/2024 13:30:15 04/27/20 24 04/27/2024 CBC/C OMPLE TE BLD COUNT W/DIF F nucleated red blood cells 0.0 % -0 Not Available [facility] (Lab) [address] [place], [address], 04/27/2024 13:30:15 04/27/20 24 04/27/2024 CBC/C OMPLE TE BLD COUNT W/DIF F NRBC# 0.00 x10'3 /uL Not Available [facility] (Lab) [address] [place], [address], 04/27/2024 13:30:15 04/27/20 24 04/27/2024 LIPID PANEL cholesterol 224 mg/dL 140-19 9 high NIH SHAGGY NSUS RECOM MENDA TION FOR WARREN STERO L: ADULT CHILD LOW RISK: <200 <170 BORDE RLINE : <200- 239 ----- HIGH RISK: >240 >200 Not Available [facility] (Lab) [address] [place], [address], 04/27/2024 13:40:55 04/27/20 24 04/27/2024 LIPID PANEL triglyceride s 159 mg/dL 0-150 high NIH SHAGGY NSUS REPOR T RECOM MENDA TION FOR TRIGL YCERI CHANNING: ADULT CHILD LOW RISK: <150 ----- BODER LINE: 150-1 99 ----- HIGH RISK: >200 ----- Not Available [facility] (Lab) [address] [place], [address], 04/27/2024 13:40:55 04/27/20 24 04/27/2024 LIPID PANEL HDL cholesterol 52 mg/dL 40- Not Available [facility] (Lab) [address] [place], [address], 04/27/2024 13:40:55 04/27/20 24 04/27/2024 LIPID PANEL [...] WILL NOT BE REPOR BERNICE. Not Available [facility] (Lab) [address] [place], [address], 04/27/2024 13:40:55 04/27/20 24 04/27/2024 COMPR EHENS BREANA METAB OLIC PANEL sodium 140 mmol/ L 137-14 5 Not Available [facility] (Lab) [address] [place], [address], 04/27/2024 13:41:01 04/27/20 24 04/27/2024 COMPR EHENS BREANA METAB OLIC PANEL potassium 4.2 mmol/ L 3.5-5. 1 Not Available [facility] (Lab) [address] [place], [address], 04/27/2024 13:41:01 04/27/20 24 04/27/2024 COMPR EHENS BREANA METAB OLIC PANEL chloride 108 mmol/ L 98-107 high Not Available [facility] (Lab) [address] [place], [address], 04/27/2024 13:41:01 04/27/20 24 04/27/2024 COMPR EHENS BREANA METAB OLIC PANEL carbon dioxide 26 mmol/ L 22-30 Not Available [facility] (Lab) [address] [place], [address], 04/27/2024 13:41:01 04/27/20 24 04/27/2024 COMPR EHENS BREANA METAB OLIC PANEL anion gap 10.2 mmol/ L 14-22 low Not Available [facility] (Lab) [address] [place], [address], 04/27/2024 13:41:01 04/27/20 24 04/27/2024 COMPR EHENS BREANA METAB OLIC PANEL glucose 92 mg/dL 70-99 Not Available [facility] (Lab) [address] [place], [address], 04/27/2024 13:41:04/27/20 24 04/27/2024 COMPR EHENS BREANA METAB OLIC PANEL BUN 19 mg/dL 8-19 Not Available [facility] (Lab) [address] [place], [address], 04/27/2024 13:41:01 04/27/20 24 04/27/2024 COMPR EHENS BREANA METAB OLIC PANEL creatinine 0.99 mg/dL 0.66-1 .25 Not Available [facility] (Lab) [address] [place], [address], 04/27/2024 13:41:04/27/20 24 04/27/2024 COMPR EHENS BREANA METAB OLIC PANEL GFR 55 Refer ence Range : Ama ge GFR Healt hy Adult : >60 [...] on the F websi te: https ://tessie tobin.o rg/pr ofess ional s/kdo qi/gf r_cal culat or Not Available [facility] (Lab) [address] [place], [address], 04/27/2024 13:41:01 04/27/20 24 04/27/2024 COMPR EHENS BREANA METAB OLIC PANEL alkaline phosphatase 89 U/L 38-126 Not Available [facility] (Lab) [address] [facility], [place], [address], 04/27/2024 13:41:01 04/27/20 24 04/27/2024 COMPR EHENS BREANA METAB OLIC PANEL alanine aminotransfe rase 11 U/L 0-35 Not Available [facility] [id number]|[id number]|2024 19:05:00|2024 19:05:00|XMS_ITS|BKG DAEMON|External Medical Summaries|[id number]|" Encounter Summary Created on: 2024 Josephine Pino : 1950 Sex: Female Author Organization [facility] Address [address] [place] [id number] Care Team Providers Care Sales Management Intern Name Role Phone Pasquale Guadarrama MD Primary Care Provider [phone] Pasquale Guadarrama MD Unavailable [phone] Pasquale Guadarrama MD Unavailable [phone] Willard Tsang MD Unavailable Reason for Visit * Reason Onset Date Comments Update 12/19/2024 Encounter Details Date Type Department Care Team (Late st Contact Info) Description 12/19/2024 Telephone [facility] - Rheumatology [address], [address] [place] [address] Libia Gardner MD [address] [place] [address] Update Social History Tobacco Use Types Packs/Day Years Used Date Smoking Tobacco: Never Smokeless Tobacco: Never Alcohol Use Standard Drinks/Week Comments No 0 (1 standard drink = 0.6 oz pur e alcohol) Rarely Comments No Sex and Gender Information Value Date Recorded Sex Assigned at Not on file 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 Patient was taken to [facility] later this past weekend and xrays were [...] more extensive imaging and possible consideration for [facility]. Will update Dr. Gardner as requested by patient. Please advise. documented in this encounter Plan of Treatment Not on file documented as of this encounter Visit Diagnoses Not on filedocumented in this encounter Care Teams Sales Management Intern Relationship Specialty Start Date End Date Pasquale Guadarrama MD [address] [place] [phone] PCP - General Internal Medicine 08/06/21 Pasquale Guadarrama MD [address] [place] [phone] 08/06/21 Pasquale Guadarrama MD [address] [place] [phone] Internal Medicine 09/03/10 Willard Tsang MD [address] [place] [address] [place] [id number] Neurology 02/22/24 documented as of this encounter "
--- OUTSIDE RECORDS SUMMARY | 2024-12-21 17:03 | XMS_ITS | Referral Summary ---
Author Organization [facility] Address [address] [place] [address] Care Team Providers Care Coal Shooter Name Role Phone Laurie Mason MD Unavailable [phone] Pasquale Guadarrama MD Primary Care Provider Allergies [...] 3:34 PM CDT EXAM: Bone mineral density [facility]. HISTORY: Breast cancer. DXA BMD was done at [facility] on a Definition 6 CI. Precision testing at this site has [...] MD - 05/11/2019 EXAM: Bone mineral density [facility]. HISTORY: Breast cancer. DXA BMD was done at [facility] on a Definition 6 CI. Precision testing at this site has [...] to Health Maintenance Insurance [employer] [address] [place], [place] [id number] HMO REF [facility] MEDICARE Address: [address] [address] [place] [address] [facility] MEDICARE HMO [facility] MEDICARE HMO Care Teams Coal Shooter Relationship Specialty Start Date End Date Pasquale Guadarrama MD [address] [facility] [address] [place] [address] PCP - General 05/01/19 Laurie Mason MD Medical Oncologist/Bone Plant Supervisor Internal Medicine 04/19/19
--- OUTSIDE RECORDS SUMMARY | 2024-12-21 17:03 | XMS_ITS | Clinical Summary ---
Author Organization [facility] Address [address] [place] [address] Care Team Providers Care Toxicologist Name Role Phone Laurie Mason MD Unavailable [phone] Pasquale Guadarrama MD Primary Care Provider Allergies [...] 08/09/2002 - 08/08/2003 total OOPHORECTOMY BACK SURGERY [id number] L4-L5 x 4 BREAST LUMPECTOMY 09/09/2014 - [...] 3:34 PM CDT EXAM: Bone mineral density [facility]. HISTORY: Breast cancer. DXA BMD was done at [facility] on a Hologic Discovery CI. Precision [...] MD - 05/11/2019 EXAM: Bone mineral density [facility]. HISTORY: Breast cancer. DXA BMD was done at [facility] on a Hologic Discovery CI. Precision [...] to Health Maintenance Insurance [employer] MEDICARE HMO [facility] HMO REF [facility] MEDICARE HMO Care Teams Toxicologist Relationship Specialty Start Date End Date Pasquale Guadarrama MD [address] [facility] [address] [place] [address] PCP - General 05/01/19 Laurie Mason MD Medical Oncologist/Machine Precision Etcher Internal Medicine 04/19/19
--- OUTSIDE RECORDS SUMMARY | 2024-12-21 17:03 | XMS_ITS | Continuity of Care Document ---
Author Organization [facility] Address [address] [place] [address] [address] [place] [address] Phone Care Team Providers Care Process Stripper Name Role Phone [facility] Unavailable Unavail able Shayy Myers Unavailable Unavailable Advance Directives Directive Yes / No Effective Date File Name No Information Encounters Encounter Description Practice Location Reason(s) For Visit Diagnoses Date Provider Providers Copied on Encounter [facility], [id number] [place] [address] [address], [place], [place], [id number], [place] tel:[phone] [facility] No Information Mar-0 5-200 2 [facility] [address] [facility], [facility] [address], [place], [place], [address] , [place]. tel:[phone] Referring Provider: Yamil Oconnell, [address] [facility] [address], [place], [address]. tel:[phone] molina Provider: Shayy Myers, [address] [place] [address], [address]. tel:[phone] Family History Family Member Type Diagnosis Age At Onset No Information Payers Payer name Insurance type Covered constitution party ID Authoriza tion(s) No Information Social History [...]
[2024-12-21 17:19] VITALS: BP 142/72; PULSE 102; RESP 19; TEMP 36.6; O2SAT 100
--- NOTE | 2024-12-21 17:24 | ED.LOWEXIN ---
HPI - Extremity Injury (Lower) General Chief Complaint: Extremity Injury, Lower <Jodi Rogers APRN - Last Filed: 12/21/24 17:30> Stated Complaint: L leg pain-unable to bear wt-S/P fall-seen 12/16 <Jodi Rogers APRN - Last Filed: 12/21/24 17:30> Time Seen by Provider: 12/21/24 17:24 <Jodi Rogers APRN - Last Filed: 12/21/24 17:30> Focused HPI: Patient is a 74-year-old female presents to the ER with ongoing left knee pain. She reports she fell last Wednesday, 6 days ago, and was evaluated in this ER the next day. Patient reports she had x-ray of her left knee, which was negative. She reports since that time she has been unable to walk. Patient also endorses back pain that radiates down her left leg. She reports she has a history Sjogren's disease, lower back surgery, and breast cancer. Patient endorses mild left lower calf pain. She denies recent fevers, decreased range of motion, other areas of injury on her body. GENERAL: Well-appearing, well-nourished, and in no acute distress. HEAD: Normocephalic, atraumatic. CHEST: Clear to auscultation. No respiratory distress. HEART: Regular rate and rhythm. NEURO: Alert and oriented x3. Patient screened in triage and initial orders placed. Additional care and disposition to be based upon diagnostic testing and treatment. <Jodi Rogers APRN - Last Filed: 12/21/24 17:30> History of Present Illness HPI Narrative: Agree with HPI. Follow-up approximately 6 days ago driving her left knee into the ground. Unable to extend her leg. Has been drying herself around her home because she has trouble standing. No head injury. Has some referred pain from her left lower extremity towards her buttocks/low back. <Rosendo Kruse MD - Last Filed: 12/21/24 19:57> Related Data Home Medications: Home Medications Medication Instructions Recorded Confirmed Last Taken Type aspirin 81 mg chewable tablet 81 mg PO DAILY 03/28/24 03/28/24 Unknown History biotin 5,000 mcg chewable tablet 5,000 mcg PO DAILY 03/28/24 03/28/24 Unknown History calcium citrate 250 mg PO DAILY 03/28/24 03/28/24 Unknown History cetirizine 10 mg capsule (Zyrtec) 10 mg PO DAILY 03/28/24 03/28/24 Unknown History escitalopram oxalate 20 mg tablet 20 mg PO DAILY 03/28/24 03/28/24 Unknown History hydroxychloroquine 200 mg tablet 200 mg PO DAILY 03/28/24 03/28/24 Unknown History montelukast 10 mg tablet 10 mg PO DAILY 03/28/24 03/28/24 Unknown History omega 7-rdl-bye-fish oil 60 mg-90 1 cap PO BID 03/28/24 03/28/24 Unknown History mg-500 mg capsule (Fish Oil) psyllium 1 packet PO DAILY 03/28/24 03/28/24 Unknown History saw palmetto 500 mg capsule 1,200 mg PO DAILY 03/28/24 03/28/24 Unknown History <Jodi Rogers APRN - Last Filed: 12/21/24 17:30> Allergies/Adverse Reactions: Allergies Allergy/AdvReac Type Severity Reaction Status Date / Time Iodinated Contrast Media Allergy Mild Rash Verified 12/16/24 06:30 latex Allergy Mild hives, Verified 12/16/24 06:30 itch, swelling dermabond Allergy Mild swelling, Uncoded 12/16/24 06:30 itching <Jodi Rogers APRN - Last Filed: 12/21/24 17:30> Review of Systems Review of Systems: All systems reviewed & are unremarkable except as noted in HPI and below <Rosendo Kruse MD - Last Filed: 12/21/24 19:57> Constitutional: Constitutional: Reports no additional constitutional complaints <Rosendo Kruse MD - Last Filed: 12/21/24 19:57> Cardiovascular: Cardiovascular: Reports no additional cardiovascular complaints <Rosendo Kruse MD - Last Filed: 12/21/24 19:57> Respiratory: Respiratory: Reports no additional respiratory complaints <Rosendo Kruse MD - Last Filed: 12/21/24 19:57> Gastrointestinal: Gastrointestinal: Reports no additional gastrointestinal complaints <Rosendo Kruse MD - Last Filed: 12/21/24 19:57> Musculoskeletal: Musculoskeletal: Reports no additional musculoskeletal complaints <Rosendo Kruse MD - Last Filed: 12/21/24 19:57> Neurologic: Reports system reviewed and no additional complaints, except as documented <Rosedno Kruse MD - Last Filed: 12/21/24 19:57> PMFSH Past Medical History Medical History: Medical History History of depression History of breast cancer <Jodi Rogers APRN - Last Filed: 12/21/24 17:30> Surgical History Surgical History: Surgical History History of cholecystectomy <Jodi Rogers APRN - Last Filed: 12/21/24 17:30> Exam Narrative: GENERAL: Well-appearing, well-nourished, and in no acute distress. HEAD: Normocephalic, atraumatic. ENT: Mucous membranes moist. CHEST: Clear to auscultation. No respiratory distress. HEART: Regular rate and rhythm. Normal peripheral pulses. Back: No reproducible midline tenderness the T/L spine. No significant paraspinal tenderness. EXTREMITIES: Left lower extremity with missing borders of the patellar tendon at the left knee, unable to hold leg at extension and heel drops to the ground. Normal right lower extremity. SKIN: Warm, dry, no rash. NEURO: Alert and oriented x3. PSYCH: Normal mood and affect. <Rosendo Kruse MD - Last Filed: 12/21/24 19:57> Course Course Emergency Course: Discussed with Orthopedic surgery. Patient placed in knee immobilizer. She is able to get around with a walker. She is hesitant to try crutches. She has concerns about a stair well in her home where she has to go up 4 steps. Discussed methods for navigating the stairs using hand rail and walker. Provide pain medication. <Rosendo Kruse MD - Last Filed: 12/21/24 19:57> Vital Signs Vital signs: Vital Signs Temperature 97.8 F 12/21/24 17:19 Pulse Rate 102 H 12/21/24 17:19 Respiratory Rate 19 12/21/24 17:19 Blood Pressure 142/72 H 12/21/24 17:19 Pulse Oximetry 100 12/21/24 17:19 Oxygen Delivery Room Air 12/21/24 17:19 Temperature 97.8 F 12/21/24 17:19 Pulse Rate 102 H 12/21/24 17:19 Respiratory Rate 19 12/21/24 17:19 Blood Pressure 142/72 H 12/21/24 17:19 Pulse Oximetry 100 12/21/24 17:19 Oxygen Delivery Room Air 12/21/24 17:19 <Jodi Rogers, VIDEO GAME SCRIPT WRITER - Last Filed: 12/21/24 17:30> Vital Signs Temperature 97.8 F 12/21/24 17:19 Pulse Rate 102 H 12/21/24 17:19 Respiratory Rate 19 12/21/24 17:19 Blood Pressure 142/72 H 12/21/24 17:19 Pulse Oximetry 100 12/21/24 17:19 Oxygen Delivery Room Air 12/21/24 17:19 Temperature 97.8 F 12/21/24 17:19 Pulse Rate 102 H 12/21/24 17:19 Respiratory Rate 12/21/24 17:19 Blood Pressure 142/72 H 12/21/24 17:19 Pulse Oximetry 100 12/21/24 17:19 Oxygen Delivery Room Air 12/21/24 17:19 <Rosendo Kruse MD - Last Filed: 12/21/24 19:57> MDM - Extremity Injury (Lower) Lab Data Result diagrams: 12/21/24 18:12 12/21/24 18:12 <Jodi Rogers, VIDEO GAME SCRIPT WRITER - Last Filed: 12/21/24 17:30> Labs: Lab Results 12/21/24 Range/Units 18:12 WBC 9.8 (4.5-10.0) K/mm3 RBC 4.54 (4.2-5.4) M/mm3 Hgb 13.2 (12.0-15.0) g/dL Hct 41.6 (37.0-47.0) % MCV 91.6 (80-100) fl MCH 29.1 (26-34) pg MCHC 31.7 L (32-36) g/dl RDW 13.0 (11.5-14.5) % Plt Count 345 (150-375) k/mm3 MPV 9.9 (7.4-10.4) fl Immature Gran % (Auto) 0.3 (0-0.5) % Neut % (Auto) 74.3 H (45.5-73.1) % Lymph % (Auto) 14.5 L (18.3-44.2) % Beauregard % (Auto) 8.2 (2.6-8.5) % Eos % (Auto) 2.0 (0-4.4) % Baso % (Auto) 0.7 (0.2-1.2) % Lymph # (Auto) 1.42 (0.9-3.2) K/mm3 Beauregard # (Auto) 0.8 H (0.1-0.6) K/mm3 Eos # (Auto) 0.2 (0-0.3) K/mm3 Baso # (Auto) 0.1 (0.0-0.1) K/mm3 Abs Immat Gran (auto) 0.03 (0.00-0.031) K/mm3 Absolute Neuts (auto) 7.2 H (1.3-6.7) K/mm3 Absolute Nucleated RBC 0.000 (0.0-0.012) K/mm3 Nucleated RBC % 0.0 (0.0-0.2) % Sodium 141 (137-145) mmol/L Potassium 3.8 (3.4-5.0) mmol/L Chloride 106 (98-107) mmol/L Carbon Dioxide 22 (22-30) mmol/L Anion Gap 13 H (4-12) mmol/L BUN 34 H D (7-17) mg/dL Creatinine 1.06 H (0.7-1.0) mg/dL Estim Creat Clear Calc Not Reportable Estimated GFR 51 L (59 - ) Glucose 97 (65-110) mg/dL Calcium 9.8 (8.4-10.2) mg/dL Total Bilirubin 0.9 (0.2-1.3) mg/dL AST 49 H (14-36) U/L ALT 21 (6-35) U/L Alkaline Phosphatase 105 (38-126) U/L Total Protein 7.0 (6.3-8.2) g/dL Albumin 4.2 (3.5-5.1) g/dL <Jodi Rogers, VIDEO GAME SCRIPT WRITER - Last Filed: 12/21/24 17:30> Lab Results 12/21/24 Range/Units 18:12 WBC 9.8 (4.5-10.0) K/mm3 RBC 4.54 (4.2-5.4) M/mm3 Hgb 13.2 (12.0-15.0) g/dL Hct 41.6 (37.0-47.0) % MCV 91.6 (80-100) fl MCH 29.1 (26-34) pg MCHC 31.7 L (32-36) g/dl RDW 13.0 (11.5-14.5) % Plt Count 345 (150-375) k/mm3 MPV 9.9 (7.4-10.4) fl Immature Gran % (Auto) 0.3 (0-0.5) % Neut % (Auto) 74.3 H (45.5-73.1) % Lymph % (Auto) 14.5 L (18.3-44.2) % Beauregard % (Auto) 8.2 (2.6-8.5) % Eos % (Auto) 2.0 (0-4.4) % Baso % (Auto) 0.7 (0.2-1.2) % Lymph # (Auto) 1.42 (0.9-3.2) K/mm3 Beauregard # (Auto) 0.8 H (0.1-0.6) K/mm3 Eos # (Auto) 0.2 (0-0.3) K/mm3 Baso # (Auto) 0.1 (0.0-0.1) K/mm3 Abs Immat Gran (auto) 0.03 (0.00-0.031) K/mm3 Absolute Neuts (auto) 7.2 H (1.3-6.7) K/mm3 Absolute Nucleated RBC 0.000 (0.0-0.012) K/mm3 Nucleated RBC % 0.0 (0.0-0.2) % Sodium 141 (137-145) mmol/L Potassium 3.8 (3.4-5.0) mmol/L Chloride 106 (98-107) mmol/L Carbon Dioxide 22 (22-30) mmol/L Anion Gap 13 H (4-12) mmol/L BUN 34 H D (7-17) mg/dL Creatinine 1.06 H (0.7-1.0) mg/dL Estim Creat Clear Calc Not Reportable Estimated GFR 51 L (59 - ) Glucose 97 (65-110) mg/dL Calcium 9.8 (8.4-10.2) mg/dL Total Bilirubin 0.9 (0.2-1.3) mg/dL AST 49 H (14-36) U/L ALT 21 (6-35) U/L Alkaline Phosphatase 105 (38-126) U/L Total Protein 7.0 (6.3-8.2) g/dL Albumin 4.2 (3.5-5.1) g/dL <Rosendo Kruse MD - Last Filed: 12/21/24 19:57> Imaging Data Radiologist's impression: ITS Impressions Venous Doppler Study 12/21/24 18:09 IMPRESSION: Negative left lower extremity venous US. No deep vein thrombosis. <Rosendo Kruse MD - Last Filed: 12/21/24 19:57> Discharge Plan Discharge Clinical Impression: Rupture of left patellar tendon <Jodi Rogers APRN - Last Filed: 12/21/24 17:30> Patient Disposition: Home <Jodi Rogers APRN - Last Filed: 12/21/24 17:30> Condition: Stable <Jodi Rogers APRN - Last Filed: 12/21/24 17:30> Instructions: Knee Immobilizer (ED), Patellar Tendon Repair (DC) <Jodi Rogers APRN - Last Filed: 12/21/24 17:30> Additional Instructions: You ruptured your patellar tendon. You will need to see a orthopedic surgeon to have a surgical repair. Use crutches or a walker to help balance yourself while bearing weight. Take Tylenol with hydrocodone for pain. <Jodi Rogers APRN - Last Filed: 12/21/24 17:30> Patient Language: Georgian <Jodi Rogers APRN - Last Filed: 12/21/24 17:30> Prescriptions: New hydrocodone-acetaminophen 5-325 mg tablet 1 tablet PO Q6H PRN (Reason: pain) Qty: 12 0RF No Action aspirin [Baby Aspirin] 81 mg Tablet,Chewable 81 mg PO DAILY hydroxychloroquine 200 mg Tablet 200 mg PO DAILY escitalopram oxalate 20 mg tablet 20 mg PO DAILY Zyrtec 10 mg Capsule 10 mg PO DAILY biotin 5,000 mcg Tablet,Chewable 5,000 mcg PO DAILY Metamucil Packet 1 packet PO DAILY Rx Instructions: mix into at least 8 oz of water or juice before administering montelukast 10 mg Tablet 10 mg PO DAILY saw palmetto 500 mg Capsule 1,200 mg PO DAILY calcium citrate 250 mg calcium Tablet 250 mg PO DAILY omega 6-jwu-lil-fish oil [Fish Oil] 60-90-500 mg Capsule 1 cap PO BID methylprednisolone [Medrol (Tommy)] 4 mg tablets,dose pack See Rx Instructions .ROUTE .COMPLEX Qty: 21 0RF Rx Instructions: orally per package directions diclofenac sodium 75 mg tablet,delayed release (DR/EC) 75 mg PO BID PRN (Reason: pain) Qty: 10 0RF <Jodi Rogers APRN - Last Filed: 12/21/24 17:30> Follow-up/Referrals: Guadarrama,Pasquale Alvarado MD [Primary Care Provider] - Chan Santa MD [Physician] - 1 Week <Jodi Rogers APRN - Last Filed: 12/21/24 17:30>
[2024-12-21 18:18] LABS: Basophils Absolute Auto 0.1 K/mm3 (0.0-0.1); Basophils Percent Auto 0.7 % (0.2-1.2); Eosinophils Absolute Auto 0.2 K/mm3 (0-0.3); Hematocrit 41.6 % (37.0-47.0); Hemoglobin 13.2 g/dL (12.0-15.0); Immature Granulocyte Absolute 0.03 K/mm3 (0.00-0.031); Immature Granulocyte Percent A 0.3 % (0-0.5); Lymphocytes Absolute Auto 1.42 K/mm3 (0.9-3.2); Lymphocytes Percent Auto 14.5 % (18.3-44.2); Mean Corpuscular HGB Conc 31.7 g/dl (32-36); Mean Corpuscular Hemoglobin 29.1 pg (26-34); Mean Corpuscular Volume 91.6 fl (80-100); Mean Platelet Volume 9.9 fl (7.4-10.4); Monocytes Absolute Auto 0.8 K/mm3 (0.1-0.6); Monocytes Percent Auto 8.2 % (2.6-8.5); Neutrophils Absolute Auto 7.2 K/mm3 (1.3-6.7); Neutrophils Percent Auto 74.3 % (45.5-73.1); Platelet Count Result 345 k/mm3 (150-375); Red Blood Count 4.54 M/mm3 (4.2-5.4); White Blood Count 9.8 K/mm3 (4.5-10.0)
[2024-12-21 18:30] LABS: Alanine Aminotransferase 21 U/L (6-35); Albumin Level 4.2 g/dL (3.5-5.1); Alkaline Phosphatase 105 U/L (38-126); Anion Gap 13 mmol/L (4-12); Aspartate Amino Transferase 49 U/L (14-36); Bilirubin,Total 0.9 mg/dL (0.2-1.3); Blood Urea Nitrogen 34 mg/dL (7-17); Calcium 9.8 mg/dL (8.4-10.2); Carbon Dioxide 22 mmol/L (22-30); Chloride 106 mmol/L (98-107); Estimated Glomerular Filt Rate 51; Glucose 97 mg/dL (65-110); Potassium 3.8 mmol/L (3.4-5.0); Sodium 141 mmol/L (137-145)
--- OUTSIDE RECORDS SUMMARY | 2024-12-21 19:05 | XMS_ITS | Encounter Summary ---
Author Organization [facility] Address [address] [place] [address] Care Team Providers Care Tube Inspector Name Role Phone Pasquale Guadarrama MD Primary Care Provider [phone] Pasquale Guadarrama MD Unavailable [phone] Pasquale Guadarrama MD Unavailable [phone] Willard Tsang MD Unavailable Reason for Visit * Reason Onset Date Comments Record Request 12/15/2024 Encounter Details Date Type Department Care Team (Late st Contact Info) Description 12/15/2024 Telephone [facility] - Rheumatology [address] [facility], [address] [place] [address] Libia Gardner MD [address] [place] [address] Record Request Social History Tobacco Use Types Packs/Day Years Used Date Smoking Tobacco: Never Smokeless Tobacco: Never Alcohol Use Standard Drinks/Week Comments No 0 (1 standard drink = 0.6 oz pur e alcohol) Rarely Comments No Sex and Gender Information Value Date Recorded Sex Assigned at Not on file Legal Sex Female 9:[address]APHER Gender Identity Not on file Sexual Orientation Not on file documented as of this encounter Miscellaneous Notes * Telephone Encounter - John Ferrari RN - 2024 2:24 PM CDT Per Director MARIIA Glover I found a mailing address on the the initial cover sheet they sent. [address] [facility] [address] [place] [id number] . I called the patient and provided the above update but she informed me that she had already found this information. * Telephone Encounter - John Ferrari, RN - 12/15/2024 9:48 AM CDT Patient called to request an address that she could mail a record request to [facility]. I advised that I was not aware of such an address, but that I would reach out to the office management and she could mail the forms to our office for faxing to [facility] for records if needed. Patient verbalized understanding and had no further questions or concerns at this time. documented in this encounter Plan of Treatment Not on file documented as of this encounter Visit Diagnoses Not on filedocumented in this encounter Care Teams Tube Inspector Relationship Specialty Start Date End Date Pasquale Guadarrama MD [address] [place] [phone] PCP - General Internal Medicine 08/06/21 Pasquale Guadarrama MD [address] [place] [phone] 08/06/21 Pasquale Guadarrama MD [address] [place] [phone] Internal Medicine 09/03/10 Willard Tsang MD [facility] [address] [facility] [address] [place] [address] Neurology 02/22/24 documented as of this encounter
--- OUTSIDE RECORDS SUMMARY | 2024-12-21 19:05 | XMS_ITS | Clinical Summary ---
Author Organization [facility] Address [address] [place] [address] Care Team Providers Care Podiatric Medicine Professor Name Role Phone Laurie Mason MD Unavailable [phone] Pasquale Guadarrama MD Primary Care Provider Allergies [...] 08/09/2002 - 08/08/2003 total OOPHORECTOMY BACK SURGERY [id number] L4-L5 x 4 BREAST LUMPECTOMY 09/09/2014 - [...] 3:34 PM CDT EXAM: Bone mineral density [facility]. HISTORY: Breast cancer. DXA BMD was done at [facility] on a Hologic Discovery CI. Precision testing [...] MD - 05/11/2019 EXAM: Bone mineral density [facility]. HISTORY: Breast cancer. DXA BMD was done at [facility] on a Hologic Discovery CI. Precision testing [...] to Health Maintenance Insurance [employer] MEDICARE HMO [facility] HMO REF [facility] MEDICARE Address: [address] [address] [place] [address] [facility] MEDICARE HMO Care Teams Podiatric Medicine Professor Relationship Specialty Start Date End Date Pasquale Guadarrama MD [address] [facility] [address] [place] [address] PCP - General 05/01/19 Laurie Mason MD Medical Oncologist/Loan Representative Internal Medicine 04/19/19
--- OUTSIDE RECORDS SUMMARY | 2024-12-21 19:05 | XMS_ITS | Clinical Summary ---
Author Organization [facility] Address [address] [place] [address] Care Team Providers Care Meteorological Engineer Name Role Phone Pasquale Guadarrama MD Primary Care Provider [phone] Pasquale Guadarrama MD Unavailable [phone] Pasquale Guadarrama MD Unavailable [phone] Willard Tsang MD Unavailable Source Comments [facility],non-owned Affiliates and Associated Physician Practices is amultiple site organization consisting of ambulatory clinics and hospital sitesin [place], [place], [place] and [place]. This disclosure is being madepursuant to the Care Everywhere program and may not contain all information available regarding this patient. Last updated 18.[facility] Allergies Active Allergy Reactions Criticality Noted Date [...] to affected area once daily Active Zn-Pyg Zlwf-Rtwbnb-Hbx Palmet (SAW PALMETTO COMPLEX PO) Take 1,200 mg by mouth once daily Active Keystone-3 Fatty Acids (fish oil) 1000 MG capsule [...] Care Team Description 12/19/2024 Telephone [facility] - Rheumatology [address], [address] [place] [address] Libia Gardner MD Update 12/15/2024 Telephone [facility] - Rheumatology [address], [address] [place] [address] Libia Gardner MD Record Request 12/15/2024 Telephone [facility] - Rheumatology [address], [address] [place] [address] Libia Gardner MD Record Request 12/11/2024 Telephone [facility] Neurosciences [address] [facility] [address] [place] [address] Willard Tsang MD Question 10/22/2024 Refill [facility] - Rheumatology [address] [facility], [address] [place] [address] Libia Gardner MD Refill Request [...] on file Legal Sex Female 9:45 AM ACCOUNTS PAYABLE SPECIALIST Gender Identity Not on file Sexual Orientation [...] patient's age to complete this topic Insurance [facility] Care Teams Meteorological Engineer Relationship Specialty Start Date End Date Pasquale Guadarrama MD [address] [address] PCP - General Internal Medicine 08/06/21 Pasquale Guadarrama MD [address] [place] [phone] 08/06/21 Pasquale Guadarrama MD [address] [place] [phone] Internal Medicine 09/03/10 Willard Tsang MD [facility] [place] [phone] Neurology 02/22/24
--- OUTSIDE RECORDS SUMMARY | 2024-12-21 19:05 | XMS_ITS | Continuity of Care Document ---
Author Organization [facility] Address [address] [place] [address] [address] [facility] [address] [place] [address] Phone Care Team Providers Care Workforce Management Consultant Name Role Phone [facility] Unavailable Unavail able Shayy Myers Unavailable Unavailable Advance Directives Directive Yes / No Effective Date File Name No Information Encounters Encounter Description Practice Location Reason(s) For Visit Diagnoses Date Provider Providers Copied on Encounter [facility], [address] [place] [address] [address], [place], [place], [id number], [place] tel:[phone] [facility] No Information Mar-0 5-200 2 [facility] [address] [facility], [facility] [address], [place], [place], [address] , [place]. tel:[phone] Referring Provider: Yamil Oconnell, [address] [facility] [address], [place], [address]. tel:[phone] molina Provider: Shayy Myers, [address] [place] [address], [address]. tel:[phone] Family History Family Member Type Diagnosis Age At Onset No Information Payers Payer name Insurance type Covered green party ID Authoriza tion(s) No Information Social [...]
--- OUTSIDE RECORDS SUMMARY | 2024-12-21 19:05 | XMS_ITS | Referral Summary ---
Author Organization [facility] Address [address] [place] [address] Care Team Providers Care Manager Building Name Role Phone Laurie Mason MD Unavailable [phone] Pasquale Guadarrama MD Primary Care Provider Allergies [...] 3:34 PM CDT EXAM: Bone mineral density [facility]. HISTORY: Breast cancer. DXA BMD was done at [facility] on a SmashChart CI. Precision testing at this site has [...] MD - 05/11/2019 EXAM: Bone mineral density [facility]. HISTORY: Breast cancer. DXA BMD was done at [facility] on a SmashChart CI. Precision testing at this site has [...] to Health Maintenance Insurance [employer] MEDICARE HMO [address] [place], [place] [id number] HMO REF [facility] MEDICARE HMO [facility] MEDICARE HMO Care Teams Manager Building Relationship Specialty Start Date End Date Pasquale Guadarrama MD [address] [facility] [address] [place] [address] PCP - General 05/01/19 Laurie Mason MD Medical Oncologist/Fast Food Sales Assistant Internal Medicine 04/19/19
[2024-12-21 20:06] VITALS: BP 134/78; PULSE 99; RESP 18; TEMP 37.1; O2SAT 100
--- NOTE | 2024-12-21 20:17 | PC.NURSE ---
pt refusing crutches, verbalized i am not using those.
== END 2024-12-21 20:08 | disposition home or self-care (01) ==
PROVIDERS: Registered Nurse; Emergency Provider Emergency Medicine; PCP Internal Medicine
DX: S86.812A Strain of other muscle(s) and tendon(s) at lower leg level, left leg, initial encounter (principal); W19.XXXA Unspecified fall, initial encounter; Z85.3 Personal history of malignant neoplasm of breast
CPT/HCPCS: 36415; 80053; 85025; 93971; 99284